=== PATIENT | male | born 1940 | race Caucasian/White ===

== ENCOUNTER 2024-01-20 17:56 | Inpatient (IN) | payer MEDICARE, OTHER, SELFPAY ==
[2024-01-16 22:49] VITALS: BP 153/65; BMI 21.5
--- NOTE | 2024-01-16 22:53 | ED.GENMED ---
History of Present Illness
General
Chief Complaint: Bowel Problem
Time Seen by Provider: 01/16/24 22:53
Travel History
Have you had any contact with someone who has COVID-19?: No
Do you have any symptoms of coronavirus? Fever > 100 degrees, chills, cough, shortness of breath, sore throat, loss of taste or smell, muscle aches, or headache?: No
History of Present Illness
History of Present Illness:
HPI: The patient has dementia and EMS could not describe why he was here, we called [facility] at 11:05 PM. I spoke to a nurse there. She tells me the patient earlier was having 'severe abdominal pain, chest pain, was pale and clammy, his
'stoma was protruding' and he almost passed out. The patient tells me he has not been feeling well. He said he has been having abdominal and chest pain.
EXAM:
GENERAL: Appears in mild distress
HEENT: Slightly dry oral mucosa
CARDIOVASCULAR: Regular rate and rhythm
PULMONARY: No respiratory distress, breathing is nonlabored, equal and clear breath sounds
ABDOMEN: Soft with no peritoneal signs, but there is mild diffuse tenderness, colostomy bag which is full of brown stool noted
NEUROLOGIC: The patient has evidence of dementia, not oriented to month or place, but he knows he is at 'a hospital' strength is equal in all extremities
EXTREMITIES: Moves all extremities equally, no tenderness, no edema
PYSCHIATRIC: Very limited historian, limited insight and judgment
TIME OF INITIAL ENCOUNTER: 11:10 PM
NUMBER AND COMPLEXITY OF PROBLEMS ADDRESSED AT THE ENCOUNTER
� Chronic conditions affecting care: Dementia, depression, has colostomy, CAD, high blood pressure, diabetes, COPD
� Acute Exacerbation and/or Progression of Chronic Illness: This is an acute problem
� Differential Diagnosis includes: Constipation, abdominal pain, abdominal wall pain, ACS, vital signs not consistent with sepsis, mesenteric ischemia
AMOUNT AND/OR COMPLEXITY OF DATA TO BE REVIEWED AND ANALYZED
� I performed an independent evaluation of and my interpretation is:
EKG: Sinus 92, nonspecific ST abnormality
CT: CT shows prominent left hepatic mass measuring up to 8.7 cm concerning for underlying malignancy
X-rays: Chest x-ray shows sternotomy wires but no acute abnormality
Laboratory Studies: New LFT abnormality noted, creatinine 1.7 this is near baseline
Other:
� Review of other/old records: I reviewed records�the patient was admitted here in May 2023 with a change in mental status felt to be due to 'toxic metabolic encephalopathy secondary to UTI and patient with underlying
dementia'
� Clinical information was obtained by an independent historian: See above�I spoke to nurse at [facility]
� Prescriptions/Medications Considered but not given:
� Further testing considered but not performed:
RISK OF COMPLICATIONS AND/OR MORBIDITY OR MORTALITY OF PATIENT MANAGEMENT
� Social determinants of health affecting care: Lives at [facility]
� Discussion with other providers: Hospitalist for admission at 12:20 AM
� Escalation of care including admission/observation vs risk of discharge considered: Given patient's age with reported chest and abdominal pain, labs and imaging has been obtained. CT imaging shows a new left hepatic mass. The
patient cannot clearly tell me the names of anybody for me to call to update them of those he says that he has 'an uncle'. The patient did vomit a large amount of food while in the ED. He was given Zofran and Protonix.
Past History
Past History
ED Past Medical History: CAD, COPD, GERD, HTN, Hypercholesterolemia, IDDM (type 2), VT, Psychiatric (depression, dementia with behavioral disturbances) and Other (HLD, angina or pressue, circulation problems, CP, PVD, dementia slight, frequent MARQUES,
Colitis, UTI's)
ED Past Surgical History: Appendectomy, Bowel resection (Perforated diverticulitis requiring emergency rectosigmoid resection with formation of colostomy March 31, 2021), Cardiac (CABG 2003), Orthopedic and Other (Cataracts)
Social History
Tobacco: Smoker
Alcohol: None
Drug: None
Personal: Single
Living: alf (Amigo)
Employment: Retired
Family History
Family History: Other (Diabetes, hypertension, coronary disease)
Phy Exam
Physical Exam
Physical Exam:
See HPI
Course
Orders/Labs/Results
Orders:
Orders
01/16/24 23:10
Electrocardiogram (*1) Urgent
Reason for Study: Chest Pain
EKG- Treatment ONCE
0.9% Sodium Chloride 500 ml [Nss] 500 ml IV BOLUS
01/16/24 23:14
CT Abd/pel Without Iv Or Oral Urgent
Comment:
Reason For Exam: abd pain; cannot leanna po; CKD
01/16/24 23:16
Complete Blood Count/With Diff Urgent
Comprehensive Metabolic Panel Urgent
Lactic Acid Urgent
Lipase Urgent
Troponin I Urgent
01/16/24 23:17
CR Chest - 2 Views Urgent
Comment:
Reason For Exam: pain
01/17/24 01:36
Admit/Transfer Patient As Directed
Co-Sign Provider:
Level of Care: Observation services
Assign to:: Medical/Surgical
Physician / Group: hospitalist
Diagnosis: liver mass
01/17/24 01:37
Ondansetron Injectable [Zofran] 4 mg .ROUTE .STK-MED ONE
Ondansetron Injectable [Zofran] 4 mg IV NOW STA
01/17/24 01:38
Code Status As Directed
Resuscitation Status: Do not resuscitate
Based on pt advanced directive or healthcare POA form: Yes
DNR Bracelet Application ONCE
01/17/24 01:43
MRI Abdomen [MR Abdomen W/o & W Contrast] Routine
Comment:
Reason For Exam: liver mass protocol
Recent pill cam endoscopy?: No
01/17/24 03:25
0.9% Sodium Chloride 1000 ml [Nss] 1,000 ml IV 60 mls/hr
Acetaminophen [Tylenol] 650 mg PO Q4HPRN PRN
Bisacodyl [Dulcolax] 10 mg RECTAL [id number] PRN
Metoclopramide [Reglan] 5 mg IV Q6HPRN PRN
Polyethylene Glycol Powder [Miralax] 17 grams PO DAILYPRN PRN
01/17/24 03:25
Consult Notification Routine
Specialty to Notify: Gastroenterology
Date consulting provider notified: 01/17/24
Time consulting provider notified: 03:50
Notified:: Provider
GASTROINTESTINAL CONSULT Routine
Consulting Provider: Pam Simon
Was physician already notified: No
Reason for consult: liver mass, abdominal pain
Activity As Directed
Activity Level: With Assistance
Bedside Glucose Monitoring As Directed
Frequency: AC&HS
Vital Signs As Directed
Frequency: Per unit guidelines
DX Deep Vein Thrombosis Video Routine
01/17/24 Breakfast
2000 calorie (17 carb) Diabetic
At Your Request: Full Participation
Does patient need a safe tray?: No
AFP Male/Tumor Marker IN AM
Basic Metabolic Panel IN AM
LFT [Osidf-Ukez-Aknmcfx] IN AM
01/17/24 07:30
Insulin Aspart Corrective Low [Novolog Flexpen-Low Resistance] See Protocol SC AC
01/17/24 08:00
Aspirin Low Dose EC [Aspir Low (Enteric Coated)] 81 mg PO DAILY
Bupropion Regular Release [Wellbutrin Regular Release] 100 mg PO BID
Cilostazol [Pletal] 100 mg PO BID
Divalproex Delayed Rel. 12 Hr [Depakote (12 Hr Release)] 125 mg PO BID
Metoprolol [Lopressor] 25 mg PO BID
Pantoprazole [Protonix] 40 mg PO DAILY
Risperidone [Risperdal] 0.25 mg PO BID
01/17/24 09:00
ISOSORBIDE MONOnitrate ER [Imdur (Extended Release)] 60 mg PO BID@0900,1600
01/17/24 18:00
Amlodipine [Norvasc] 10 mg PO QPM
Enoxaparin Sodium [Lovenox] 30 mg SC QPM
01/17/24 22:00
Atorvastatin [Lipitor] 20 mg PO HS
Sennosides [Senokot] 17.2 mg PO HS
Tamsulosin [Flomax] 0.4 mg PO HS
Abnormal Lab Results
01/16/24
23:16
WBC 12.8 H 10^3/uL
(4.8-10.8)
RBC 3.99 L 10^6/uL
(4.70-6.10)
Hgb 11.6 L g/dL
(13.0-18.0)
Hct 33.0 L %
(39.0-52.0)
Abs Immat Gran (auto) 0.1 H 10^3/uL
(0-0.05)
Absolute Neuts (auto) 10.9 H 10^3/uL
(1.4-6.5)
Absolute Lymphs (auto) 1.0 L 10^3/uL
(1.2-3.4)
Immature Gran % 0.9 H %
(0-0.5)
Neutrophils % 85.3 H %
(42.2-75.2)
Lymphocytes % 7.6 L %
(20.5-51.1)
Sodium 134 L mmol/L
(135-145)
Potassium 5.3 H mmol/L
(3.5-5.1)
BUN 40 H mg/dl
(9-20)
Creatinine 1.7 H mg/dL
(0.7-1.3)
Glucose 210 H mg/dl
(70-99)
AST 574 H* U/L
(17-59)
ALT 338 H U/L
(0-50)
Alkaline Phosphatase 203 H U/L
(38-126)
01/16/24 23:16
01/16/24 23:16
Vital Signs
Initial and Last Documented VS:
Initial Vital Signs
Temp Pulse Resp BP Pulse Ox
98.4 F 89 16 153/65 97
01/16/24 22:49 01/16/24 22:49 01/16/24 22:49 01/16/24 22:49 01/16/24 22:49
Last Documented Vital Signs
Temp Pulse Resp BP Pulse Ox
98.4 F 89 16 153/65 97
01/16/24 22:49 01/16/24 22:49 01/16/24 22:49 01/16/24 22:49 01/16/24 22:49
*Critical Care Note
Total Time (30-74mins, 75-104mins- exclusive of procedures): Not Applicable
ED Attending Note
-
Portions of this chart may have been created with voice recognition software.� Occasional wrong word or��sound alike� substitutions may have occurred due to the inherent limitations of voice recognition software.
Discharge Plan
Departure
Patient Disposition: Admit
Date of Disposition: 01/17/24
Time of Disposition: 00:27
Presentation/result/management discussed w/ accepting MD/DO: Hospitalist
Patient with high blood pressure during this ER visit?: Yes
Discharge Problem:
Liver mass
Interventions
Interventions:
*Risk Screen - Suicide Last Done: 01/17/24 06:40
*General Assessment Last Done: 01/16/24 22:49
*Neglect/Abuse Screening Last Done: 01/16/24 22:49
ED- Fall Risk Assessment Last Done: 01/16/24 23:06
*ED COVID-19 Vaccine History Last Done: 01/16/24 22:49
*Nursing Disposition Last Done: 01/17/24 02:50
TU-Qejbus-Mbzulwskth Assessment Last Done: 01/16/24 23:06
Discharge Date and Time
Discharge Date/Time: 01/17/24 02:50
[2024-01-16] MEDS: NSS 500 IV (23:20)
[2024-01-16 23:31] LABS: % Basophils 0.3 % (0-2); % Eosinophils 0.9 % (0-6); % Immature Granulocytes 0.9 % (0-0.5); % Lymphocytes 7.6 % (20.5-51.1); % Neutrophils 85.3 % (42.2-75.2); Absolute Eosinophils 0.1 10^3/uL (0-0.7); Absolute Immature Granulocytes 0.1 10^3/uL (0-0.05); Absolute Monocytes 0.6 10^3/uL (0.1-0.6); Absolute Neutrophils 10.9 10^3/uL (1.4-6.5); Hemoglobin 11.6 g/dL (13.0-18.0); Mean Corp Hgb Conc. 35.2 g/dL (33.0-37.0); Mean Corpuscular Hgb 29.1 pg (27.0-31.0); Mean Corpuscular Volume 82.7 fL (80.0-94.0); Mean Platelet Volume 9.4 fL (7.4-10.4); Nucleated Red Blood Cells % 0 % (-); Platelet Count 295 10^3/uL (130-400); Red Blood Cell Count 3.99 10^6/uL (4.70-6.10); Red Cell Dist. Width 11.9 % (11.5-14.5); White Blood Cell Count 12.8 10^3/uL (4.8-10.8)
[2024-01-16 23:44] LABS: Lactic Acid 1.6 mmol/L (0.7-2.0)
[2024-01-16 23:49] LABS: ALT (SGPT) 338 U/L (0-50); AST (SGOT) 574 U/L (17-59); Albumin 3.8 g/dl (3.5-5.0); Alkaline Phosphatase 203 U/L (38-126); Blood Urea Nitrogen 40 mg/dl (9-20); Calcium 9.6 mg/dl (8.4-10.2); Carbon Dioxide 25 mmol/L (22-30); Chloride 103 mmol/L (98-107); Estimated Creatinine Clearance 31 ml/min; Glucose 210 mg/dl (70-99); Lipase 29 U/L (23-300); Potassium 5.3 mmol/L (3.5-5.1); Sodium 134 mmol/L (135-145); Total Bilirubin 0.8 mg/dl (0.2-1.3); Total Protein 6.5 g/dl (6.3-8.2)
[2024-01-16 23:57] LABS: Troponin I < 0.012 ng/ml
--- NOTE | 2024-01-17 01:10 | HPS.HSE ---
Family Physician
-
Family Physician: Jairo Jade
Chief Complaint
-
Abdominal pain
History of Present Illness
This is an 83-year-old resident of a [facility] who presents with abdominal pain. He is a poor historian. History from [facility] shelter reported that hew was having severe abdominal pain and chest discomfort. He was pale and clammy and his
stoma was protruding. 'He almost passed out.' Has a history of perforated diverticulitis s/p colectomy and has a colostomy bag. At the bedside he had no complaints. States his abdomen now feels fine. Denies urinary symptoms. He is unable to
provide any additional history.
Vital signs were stable in the ED was afebrile, blood pressure was 153/65 with a pulse of 87 and oxygen saturation of 91% on room air. He had a ECG which showed normal sinus rhythm 4 degree AV block. No acute ST or T wave changes unchanged from
prior. Is CBC was notable for a white count of 12.8 but otherwise unremarkable. Chemistries notable for a BUN of 40 creatinine of 1.7 and a sodium of 104. BUN/creatinine slightly higher than baseline. His labs were mostly remarkable for elevated
LFTs with alk phos of 203 AST of 574 and ALT of 338. CT scan shows a prominent left hepatic mass measuring 8.7 x 8.1 cm concerning for underlying malignancy. Gallbladder was unremarkable. He had a moderately distended stomach without bowel
obstruction and moderate stool burden.
Medical History
Past Medical History
Past Medical History: Reports CAD, Dementia, HTN, IDDM and Other
Additional Past Medical History:
BPH
Past Surgical History: Reports Bowel Resection
Social History
Unable to obtain full social history at this time due to: Dementia
Tobacco: Non-smoker
Living: Longterm
Employment: Retired
Family History
Family History: Not pertinent
Allergies / Home Medications
Allergies reflects when Allergies were last updated in [facility].
Home Medications with original date entered in [facility]
Allergy/Medication List:
Allergies
Allergy/AdvReac Type Severity Reaction Status Date / Time
No Known Allergies Allergy Verified 01/16/24 22:53
Home Medications
nitroglycerin 0.4 mg sublingual tablet 0.4 mg sublingual Q5MX3 PRN chest pain 01/08/17
acetaminophen 325 mg tablet 650 mg PO Q4H PRN mild pain/temp>100F 12/01/17
amlodipine 10 mg tablet 10 mg PO QPM Blood pressure 12/01/17
cilostazol 100 mg tablet 100 mg PO BID s/p cabg 12/01/17
pantoprazole 40 mg tablet,delayed release 40 mg PO DAILY Gastrointestinal issue 12/01/17
sennosides 8.6 mg tablet (senna) 2 tab PO HS Constipation 12/01/17
simvastatin 40 mg tablet 40 mg PO HS High cholesterol 12/01/17
isosorbide mononitrate 60 mg tablet,extended release 24 hr 60 mg PO BID@0900,1600 Heart disease/condition 03/22/18
divalproex 125 mg tablet,delayed release 125 mg PO BID seizures/mental health 07/21/20
aspirin 81 mg tablet,delayed release 81 mg PO DAILY Blood clot prevention/tx 04/12/21
insulin lispro 100 unit/mL subcutaneous pen (Humalog KwikPen (U-100) Insulin) 0 - 14 units SC QID Diabetes 04/12/21
tamsulosin 0.4 mg capsule 0.4 mg PO HS Urinary issue 04/12/21
metoprolol tartrate 25 mg tablet 25 mg PO BID Blood pressure 12/29/21
bupropion HCl 100 mg tablet 100 mg PO BID Mental Health/Anxiety 11/19/22
risperidone 0.25 mg tablet 0.25 mg PO BID Mental Health/Anxiety 11/19/22
cephalexin 500 mg capsule 500 mg PO Q8H #14 caps 06/11/23
Review of Systems
-
Unable to obtain full review of systems at this time due to: Dementia
History Source: Family
Constitutional: Reports No Symptoms
EENT: Reports No Symptoms
Respiratory: Reports No Symptoms
Cardiac: Reports Chest Pain
Abdomen/GI: Reports Abdominal Pain
: Reports No Symptoms
Musculoskeletal: Reports No Symptoms
Skin: Reports No Symptoms
Neurological: Reports No Symptoms
Endocrine: Reports No Symptoms
Hematologic/Lymphatic: Reports No Symptoms
Psych: Reports No Symptoms
Physical Exam
Vital Signs
Vital Signs
Temp Pulse Resp BP Pulse Ox
98.4 F 89 16 153/65 97
01/16/24 22:49 01/16/24 22:49 01/16/24 22:49 01/16/24 22:49 01/16/24 22:49
Physical Exam
General: Comfortable
HEENT: NormoCephalic, Anicteric and Moist mucous membranes
Respiratory: Clear
Cardiac: S1/S2 and Regular Rhythm
Breast: N/A
GI: Tender, Distended and Ostomy
Rectal: Deferred by Provider
Genito-urinary: Deferred by me
Musculoskeletal: No Clubbing, No Cyanosis and No Edema
Skin: Warm
Neuro: Alert and Nonfocal/grossly intact
Hematologic/Lymphatic: No Lymphadenopathy
Psych: Calm
Laboratory Results
-
01/16/24 23:16
01/16/24 23:16
Laboratory Results
Lactic Acid 1.6 mmol/L (0.7-2.0) 01/16/24 23:16
Total Bilirubin 0.8 mg/dl (0.2-1.3) 01/16/24 23:16
AST 574 U/L (17-59) H* 01/16/24 23:16
ALT 338 U/L (0-50) H 01/16/24 23:16
Alkaline Phosphatase 203 U/L (38-126) H 01/16/24 23:16
Troponin I < 0.012 ng/ml 01/16/24 23:16
Lipase 29 U/L (23-300) 01/16/24 23:16
Data Reviewed
-
Diagnostic Radiology: Image Personally Visualized and interpreted
CT Scan: Report Reviewed by me
Medical Tests (Nuc Med, Echo, EKG etc): Image Personally Visualized and interpreted
Lab Data: Labs Reviewed by me
Old Records: Reviewed
Impression/Plan
-
IMPRESSION:
83-year-old with past medical history significant for dementia, CKD, hypertension, CAD, BPH and diabetes who presents to the Emergency Department with acute episode of abdominal pain and was found to have a right left hepatic lobe mass concerning
for underlying malignancy. No peritonitis. No bowel obstruction. Unclear that the mass is the cause of the abdominal complaint rather than an incidental finding. He does have abnormal lfts but normal lipase and normal biliary findings.
PLAN:
1. Liver mass - Incidental finding of a left hepatic lobe mass concerning for malignancy
- admit to f
- mri liver protocol to characterize mass
- check AFP
- diet as tolerated
- GI consultation
2. CAD - s/p cabg
- continue aspirin, statin and cilostazol
- imdur
3. HTN - stable
- continue norvasc, metoprolol and imdur
4.Dementia w/ behavioral changes
- namenda
- depakote
- buproprion
- risperdal
5. DM II
- sliding scale insulin
DVT PPX lovenox sq
Code status - DNR
--- NOTE | 2024-01-17 01:27 | EDRN ---
Hospitalist at bedside working on admission, patient resting comfortably
[2024-01-17] MEDS: ZOFRAN 4 MG IV (01:50)
--- NOTE | 2024-01-17 02:12 | EDRN ---
was at nursing station when heard patient making sound went in to check on him, patient threw up all over the floor large amount noted in brown color, linnea rosales MD and hospitalist aware
[2024-01-17] MEDS: NSS 1000 IV ×2 (03:38→20:41)
--- NOTE | 2024-01-17 05:25 | PTCARENOTE ---
01/17/2024 - PT admitted to room 2135 @02:45 from ED. PT transferred from stretcher to bed with max assist. PT oriented to room, call scruggs, plan of care discussed. PTunable to participate in admission questions. Admission completed based on report.
Bed alarm placed for PT safety. Remote video monitoring placed for PT safety. Assessment as documented.
[2024-01-17 07:55] VITALS: BP 131/63
[2024-01-17 08:52] LABS: Glucose - Point of Care 312 mg/dl (70-99)
[2024-01-17] MEDS: NOVOLOG FLEXPEN-LOW RESISTANCE 4 UNITS SC (09:08)
[2024-01-17] MEDS: WELLBUTRIN REGULAR RELEASE 100 MG PO ×2 (09:09→20:39)
[2024-01-17] MEDS: IMDUR (EXTENDED RELEASE) 60 MG PO ×2 (09:09→16:04)
[2024-01-17] MEDS: RISPERDAL 0.25 MG PO ×2 (09:10→20:39)
[2024-01-17] MEDS: DEPAKOTE (12 HR RELEASE) 125 MG PO ×2 (09:10→20:39)
[2024-01-17] MEDS: ASPIR LOW (ENTERIC COATED) 81 MG PO (09:10)
[2024-01-17] MEDS: LOPRESSOR 25 MG PO ×2 (09:10→20:39)
[2024-01-17] MEDS: PLETAL 100 MG PO ×2 (09:10→20:38)
[2024-01-17] MEDS: PROTONIX 40 MG PO (09:10)
[2024-01-17 09:16] LABS: Albumin 3.3 g/dl (3.5-5.0); Alkaline Phosphatase 241 U/L (38-126); Blood Urea Nitrogen 35 mg/dl (9-20); Calcium 9.1 mg/dl (8.4-10.2); Carbon Dioxide 23 mmol/L (22-30); Chloride 105 mmol/L (98-107); Direct Bilirubin 1.1 mg/dl (0.0-0.4); Estimated Creatinine Clearance 31 ml/min; Glucose 308 mg/dl (70-99); Potassium 5.1 mmol/L (3.5-5.1); Sodium 133 mmol/L (135-145); Total Bilirubin 1.3 mg/dl (0.2-1.3); Total Protein 5.8 g/dl (6.3-8.2)
[2024-01-17 09:21] LABS: ALT (SGPT) 860 U/L (0-50); AST (SGOT) 913 U/L (17-59)
--- NOTE | 2024-01-17 09:54 | PTCARENOTE ---
Patient's stoma red, bulging, with hard formed brown stool output; appliance changed overnight per overnight babysitter RN, stoma care provided and new ostomy bag placed by this RN. Patient denies N/V or abd pain at rest but states sharp pain throughout
abdomen with palpation. AST 913 and ALT 860 this AM, results communicated with MD. Colorectal surgery consult placed by MD. Patient states no other concerns at this time.
[2024-01-17 10:28] LABS: Glucose - Point of Care 283 mg/dl (70-99)
--- NOTE | 2024-01-17 10:53 | CON.CRS ---
Consultation
-
Date/Time Consultation Requested: 01/17/24925
Requesting Provider: Leobardo
Performing Provider: Kirk Villasenor
Reason for Consultation: Bulging, protruding stoma, severe constipation
Medical History
-
Chief Complaint: abdominal pain
History of Present Illness:
Mr Arango is an 83 yo male with h/o dementia, CAD, CABG, COPD, CHF, c-diff requiring fecal transplant 2015 and perforated diverticulitis with Haritha's procedure in March of 2021 who presents from SNF with abdominal pain and near syncope. He is
orented to self and knows he is in the hospital but otherwise confused and a poor historian. He complains of generalized abdominal pain with generalized tenderness on exam. Stoma is pink and budded on exam and productive of hard balls of formed
stool per nursing. He had vomiting last night which he confirms but denies active nausea.
Past Medical History
Past Medical History: CAD, CHF, COPD, Diverticulitis, GERD, HTN, Hypercholesterolemia, IDDM, Renal Failure (CKD) and Other (Dementia, BPH)
Past Surgical History: Appendectomy, Bowel Resection (rectosigmoid with colostomy creation d/t perforation) and Cardiac (CABG)
Social History
Tobacco: Non-Smoker
Alcohol: None
Living: Senior Living
Family History
Family History: Reviewed & Not Pertinent
Allergies / Home Medications
Allergy/AdvReac Type Severity Reaction Status Date / Time
No Known Allergies Allergy Verified 01/16/24 22:53
�Medication �Instructions �Recorded �Confirmed �Type
nitroglycerin 0.4 mg sublingual 0.4 mg sublingual Q5MX3 PRN chest 01/08/17 06/07/23 History
tablet pain
acetaminophen 325 mg tablet 650 mg PO Q4H PRN mild 12/01/17 06/07/23 History
pain/temp>100F
amlodipine 10 mg tablet 10 mg PO QPM Blood pressure 12/01/17 06/07/23 History
cilostazol 100 mg tablet 100 mg PO BID s/p cabg 12/01/17 06/07/23 History
pantoprazole 40 mg tablet,delayed 40 mg PO DAILY Gastrointestinal 12/01/17 06/07/23 History
release issue
sennosides 8.6 mg tablet (senna) 2 tab PO HS Constipation 12/01/17 06/07/23 History
simvastatin 40 mg tablet 40 mg PO HS High cholesterol 12/01/17 06/07/23 History
isosorbide mononitrate 60 mg 60 mg PO BID@0900,1600 Heart 03/22/18 06/07/23 History
tablet,extended release 24 hr disease/condition
divalproex 125 mg tablet,delayed 125 mg PO BID seizures/mental 07/21/20 06/07/23 History
release health
aspirin 81 mg tablet,delayed 81 mg PO DAILY Blood clot 04/12/21 06/07/23 History
release prevention/tx
insulin lispro 100 unit/mL 0 - 14 units SC QID Diabetes 04/12/21 06/07/23 History
subcutaneous pen (Humalog KwikPen
(U-100) Insulin)
tamsulosin 0.4 mg capsule 0.4 mg PO HS Urinary issue 04/12/21 06/07/23 History
metoprolol tartrate 25 mg tablet 25 mg PO BID Blood pressure 12/29/21 06/07/23 History
bupropion HCl 100 mg tablet 100 mg PO BID Mental Health/Anxiety 11/19/22 06/07/23 History
risperidone 0.25 mg tablet 0.25 mg PO BID Mental 11/19/22 06/07/23 History
Health/Anxiety
cephalexin 500 mg capsule 500 mg PO Q8H #14 caps 06/11/23 Rx
Review of Systems
-
Unable to obtain full review of systems at this time due to: Dementia
A 10 point review of systems was completed, and was negative except as per HPI.
Physical Exam
Vital Signs
Temp 99.7 F 01/17/24 07:55
Pulse 104 01/17/24 09:10
Resp Rate 16 01/17/24 07:55
Blood pressure 131/63 01/17/24 09:10
SaO2 95 01/17/24 07:55
01/16/24 01/17/24 01/18/24
06:59 06:59 06:59
Actual Weight 64 kg
Body Mass Index (BMI) 21.5
Lab Results / Allergies
01/16/24 23:16
01/17/24 06:58
WBC 12.8 10^3/uL (4.8-10.8) H 01/16/24 23:16
Hgb 11.6 g/dL (13.0-18.0) L 01/16/24 23:16
Hct 33.0 % (39.0-52.0) L 01/16/24 23:16
Plt Count 295 10^3/uL (130-400) 01/16/24 23:16
Abs Immat Gran (auto) 0.1 10^3/uL (0-0.05) H 01/16/24 23:16
Neutrophils % 85.3 % (42.2-75.2) H 01/16/24 23:16
Allergy/AdvReac Type Severity Reaction Status Date / Time
No Known Allergies Allergy Verified 01/16/24 22:53
Physical Exam
General: Other (Curled up in bed, sleepy/disheveled)
HEENT: Moist Mucous Membranes
GI: Soft, Tender (generalized), Distended (mild) and Other (ostomy pink/budded)
Skin: Warm
Neuro: Awake, Alert and Other (ox1-2)
Psych: Calm
Data Reviewed
-
CT Scan: Image Personally Visualized and interpreted, Report Reviewed by me, Discussed with Physician, Discussed with Patient and Discussed with Family
Labs: Labs Reviewed by me, Discussed with Physician, Discussed with Patient and Discussed with Family
Old Records: Reviewed
Assessment / Plan
-
83 yo male with h/o dementia, CAD, CABG, COPD, CHF, perforated diverticulitis in 2020 s/p Haritha's with Dr. Salamanca who presented with generalized abdominal pain and near syncope seen today in consult for evaluation of stoma and constipation. CT
imaging reviewed from admission with incidental finding of new liver mass with GI consult and MRI pending. There is a large amount of stool burden present with severe constipation present. No free air. No obstruction. Anastomosis from prior surgery
appears patent. Ostomy with healthy looking and functioning stoma. Hard stools noted from stoma by nursing, appliance empty as it was recently changed but some flatus noted. Reported nausea/vomiting last night but he denies nausea today. AFVSS. Mild
leukocytosis with elevated LFT's.
--Start bowel regimen with miralax 17gm x1 po now and daily, colace 100mg BID and enema now via stoma. Hold senna given abdominal discomfort. May need MOM vs Mag citrate later today if no BM with enema
--Dietas per primary team, would make NPO if further nausea/vomiting
--Liver work up as per gastroenterology team
[2024-01-17 11:40] LABS: Glucose - Point of Care 242 mg/dl (70-99)
[2024-01-17] MEDS: NOVOLOG FLEXPEN-LOW RESISTANCE 2 UNITS SC (12:30)
[2024-01-17] MEDS: MIRALAX 17 GRAMS PO ×2 (12:39→20:39)
--- NOTE | 2024-01-17 13:32 | CM ---
Initial assessment completed with nephew, Shady. Patient resides LTC at [facility]. He is non-ambulatory, requires assistance with transfers, can wheel himself in wheelchair, able to feed self if food is placed in front of him,
communicative but confused and dementia has gotten worse lately. Discharge Plan of Care: Return to [facility].
[2024-01-17 14:05] VITALS: BP 125/54
[2024-01-17 14:44] LABS: Urine Albumin 2+ (Neg - Trace); Urine Bilirubin 1+ (Negative); Urine Character Slightly Cloudy (Clear); Urine Color Yellow; Urine Glucose 3+ (Negative); Urine Ketone Trace (Negative); Urine Leukocyte 2+ (Negative); Urine Nitrite Negative (Negative); Urine Occult Blood Negative (Negative); Urine Urobilinogen 2+ (Neg - 1+)
[2024-01-17] MEDS: FLEET MINERAL OIL ENEMA 133 ML S (14:50)
[2024-01-17 15:08] LABS: Urine Bacteria Many (Negative); Urine Squamous Cell 0-2 /LPF (Few)
[2024-01-17 15:09] LABS: Urine White Cell 26-30 /HPF (0-5)
[2024-01-17 15:10] LABS: Urine Red Blood Cell 0-2 /HPF (0-2)
--- NOTE | 2024-01-17 15:38 | CON.GI ---
Consultation
-
Date/Time Consultation Requested: 01/17/2024
Date/Time Consultation Performed: 01/17/2024
Requesting Provider: Dr. Acuña
Performing Provider: Dr. Simon
Reason for Consultation: Liver mass
Medical History
Chief Complaint / HPI
Chief Complaint: Abdominal pain
History of Present Illness:
83-year-old male with history of multiple medical problems, possible dementia, presenting from [facility] with complaints of abdominal pain at the colostomy stoma from Diallo's - protruding out. He has history of perforated
diverticulitis with fecal peritonitis in 2020, had Diallo's procedure at that time. In the emergency room, he had a CT scan of the abdomen and pelvis without contrast, there was a large amount of fecal material in the cecum and throughout the rest
of the colon suggesting severe constipation. 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 Reviewing previous imaging, he had CT scan of
the chest/abdomen and pelvis without contrast in 2021 for sepsis, at that time he was noted to have very severe right lower lobe pneumonia and bilateral emphysema. Gallstones noted but otherwise liver looked normal. His total bilirubin has been
normal, transaminases within normal range in 2022, previously elevated in 2021 but this admission, AST was 913, ALT of 860, alkaline phosphatase of 241. Total bilirubin of 1.3 with a direct of 1.1. Hepatitis B and C serologies negative in June
2021, hepatitis B surface antigen positive suggesting immunization/previous infection.
Reported history of colonoscopy but unable to recall the findings or when this was.
Patient is a very poor historian and is not able to give any history. He does report some discomfort in the mid abdomen, no nausea, vomiting, blood or trouble swallowing. Reports daily bowel movements and denies any blood or black stool. From
medication list, he does take Senokot, 2 tablets every night.
He was seen by colorectal surgery, hard stool in the stoma, mineral oil enema recommended to the colostomy and bowel regimen with MiraLAX recommended as well.
As per RN, small amount of stool after the enema but nothing significant.
Past Medical History
Past Medical History: Other ( CAD, COPD, GERD, HTN, Hypercholesterolemia, IDDM (type 2), NV, Psychiatric (depression, dementia with behavioral disturbances) and Other (HLD, angina or pressue, circulation problems, CP, PVD, dementia slight)
Past Surgical History: Other (Appendectomy, Bowel resection (Perforated diverticulitis requiring emergency rectosigmoid resection with formation of colostomy March 31, 2021), Cardiac (CABG 2003), Orthopedic and Other (Cataracts))
Social History
Tobacco: Smoker
Alcohol: None
Family History
Family History: Reviewed & Not Pertinent
Allergies / Home Medications
Allergy/AdvReac Type Severity Reaction Status Date / Time
No Known Allergies Allergy Verified 01/16/24 22:53
�Medication �Instructions �Recorded
nitroglycerin 0.4 mg sublingual 0.4 mg sublingual [id number] PRN chest 01/08/17
tablet pain
acetaminophen 325 mg tablet 650 mg PO Q4H PRN mild 12/01/17
pain/temp>100F
amlodipine 10 mg tablet 10 mg PO QPM Blood pressure 12/01/17
cilostazol 100 mg tablet 100 mg PO BID s/p cabg 12/01/17
pantoprazole 40 mg tablet,delayed 40 mg PO DAILY Gastrointestinal 12/01/17
release issue
sennosides 8.6 mg tablet (senna) 2 tab PO HS Constipation 12/01/17
simvastatin 40 mg tablet 40 mg PO HS High cholesterol 12/01/17
isosorbide mononitrate 60 mg 60 mg PO BID@0900,1600 Heart 03/22/18
tablet,extended release 24 hr disease/condition
divalproex 125 mg tablet,delayed 125 mg PO BID seizures/mental 07/21/20
release health
aspirin 81 mg tablet,delayed 81 mg PO DAILY Blood clot 04/12/21
release prevention/tx
insulin lispro 100 unit/mL 0 - 14 units SC QID Diabetes 04/12/21
subcutaneous pen (Humalog KwikPen
(U-100) Insulin)
tamsulosin 0.4 mg capsule 0.4 mg PO HS Urinary issue 04/12/21
metoprolol tartrate 25 mg tablet 25 mg PO BID Blood pressure 12/29/21
bupropion HCl 100 mg tablet 100 mg PO BID Mental Health/Anxiety 11/19/22
risperidone 0.25 mg tablet 0.25 mg PO BID Mental 11/19/22
Health/Anxiety
cephalexin 500 mg capsule 500 mg PO Q8H #14 caps 06/11/23
Review of Systems
-
All other systems: A 12 pt ROS was Negative except as stated above in HPI
Vital Signs
Temp Pulse Resp BP Pulse Ox
99.2 F 104 16 131/63 95
01/17/24 11:25 01/17/24 09:10 01/17/24 07:55 01/17/24 09:10 01/17/24 11:18
Physical Exam
Exam
GI: Soft and Other (Discomfort on palpation of the lower abdomen without any guarding or rigidity. Colostomy site clean with protrusion noted.)
Results
WBC 12.8 10^3/uL (4.8-10.8) H 01/16/24 23:16
Hgb 11.6 g/dL (13.0-18.0) L 01/16/24 23:16
Hct 33.0 % (39.0-52.0) L 01/16/24 23:16
MCV 82.7 fL (80.0-94.0) 01/16/24 23:16
Plt Count 295 10^3/uL (130-400) 01/16/24 23:16
Absolute Neuts (auto) 10.9 10^3/uL (1.4-6.5) H 01/16/24 23:16
Sodium 133 mmol/L (135-145) L 01/17/24 06:58
Potassium 5.1 mmol/L (3.5-5.1) 01/17/24 06:58
Chloride 105 mmol/L (98-107) 01/17/24 06:58
Carbon Dioxide 23 mmol/L (22-30) 01/17/24 06:58
BUN 35 mg/dl (9-20) H 01/17/24 06:58
Creatinine 1.7 mg/dL (0.7-1.3) H 01/17/24 06:58
Calcium 9.1 mg/dl (8.4-10.2) 01/17/24 06:58
Total Bilirubin 1.3 mg/dl (0.2-1.3) 01/17/24 06:58
AST 913 U/L (17-59) H* 01/17/24 06:58
ALT 860 U/L (0-50) H* 01/17/24 06:58
Alkaline Phosphatase 241 U/L (38-126) H 01/17/24 06:58
Lipase 29 U/L (23-300) 01/16/24 23:16
Diagnostic Image Results:
Prior GI Procedures:
EGD:
Colonoscopy:
Assessment / Plan
-
83-year-old male with history of CAD, hypertension, cholesterol, diabetes, COPD, peripheral vascular disease, side dementia, history of perforated diverticulitis needing Haritha procedure in 2020, presenting from [facility] with
severe abdominal pain, CT scan without contrast showing evidence of severe constipation but also noted is new liver mass suspicious for malignancy.
-Liver mass, 8.8 cm in size, no biliary ductal dilation, no pancreatic duct dilation.
Normal total bilirubin but elevated direct bilirubin, elevated transaminases and alkaline phosphatase
Cannot rule out primary versus metastatic disease.
Hepatitis B and C serologies previously negative.
Await alpha-fetoprotein
Await abdominal MRI to evaluate the liver lesion
Further studies based on the MRI
-Severe constipation noted on CT scan
Received mineral oil enema-no significant effect, will try milk of molasses enema.
currently on MiraLAX once a day, will increase it to twice a day
Will monitor bowel movements and will titrate laxatives based on the bowel pattern.
Will follow
-
-
Thank you for consultation and allowing me to participate in the patient's care. Please call the diffusion operator GI physician during the after hours with any questions or concerns.
--- NOTE | 2024-01-17 15:56 | PTCARENOTE ---
Patient ordered mineral oil fleet enema through stoma per colorectal surgery, administered by this RN with assistance of Oneyda HOLT. Patient tolerated 3/4 of bottle before complaining of stomach cramping. Colorectal surgery made aware, colostomy
appliance changed by this RN with assistance of Yelena HOLT.
[2024-01-17] MEDS: TYLENOL 650 MG PO (16:05)
--- NOTE | 2024-01-17 16:19 | W.PN.HOSP.TC ---
Today's Communication/Plan
-
Constipation regimen, stoma eval by surgery appreciated
GI consult in setting of liver mass and elevated AST and ALT
Morning labs
Assessment / Plan
Assessment / Plan
Physical Exam
Physical exam not performed as patient was not present in his room at the time of attempted patient encounter and after a while of waiting after attempted patient encounter.

IMPRESSION:
83-year-old with past medical history significant for dementia, CKD, hypertension, CAD, BPH and diabetes who presented to the Emergency Department with acute episode of abdominal pain and was found to have a right left hepatic lobe mass concerning
for underlying malignancy. No peritonitis. No bowel obstruction. Unclear that the mass is the cause of the abdominal complaint rather than an incidental finding. He was noted to have abnormal lfts but normal lipase and normal biliary findings.
PLAN:
#Presentation with Abdominal Pain -- abdominal pain likely due to significant constipation
#Leukocytosis
#Constipation and Dis
#Liver mass - Incidental finding of a left hepatic lobe mass concerning for malignancy
-CT without contrast showing new large liver mass, heavy stool burden, distended stomach with food material
-Appreciate surgery consult regarding bulging stoma and signif constipation - as per surgery: mineral oil enema through ostomy and Colace twice daily, MiraLAX 1-2 times per day as needed; if no significant function,
recommended milk of magnesia or mag citrate
- mri liver protocol to characterize mass
- check AFP
- diet as tolerated
- GI consultation recommendations appreciated
#Elevated AST, ALT
-Home statin on hold
-Resume when able
#Fever, Suspected UTI
#History of Pseudomonas and E. coli in the Urine
-Cefepime based on prior sensitivities
-IV fluids
-Follow blood cultures
-Follow urine cultures
#CAD - s/p cabg
- continue aspirin, statin and cilostazol
- imdur
#HTN - stable
- continue norvasc, metoprolol and imdur
#Dementia w/ behavioral changes
- namenda
- depakote
- buproprion
- risperdal
#DM II
- sliding scale insulin
#Chronic Kidney Disease vs. MIRANDA
-Monitor Cr
#Chronic Obstructive Pulmonary Disease
#History of Perforated diverticulitis s/p Diallo's [place] [address] Salamanca
DVT PPX lovenox sq
Code status - DNR
Anticipated Discharge: > 48 hours
Subjective/Interval History
-
Date of Service: January 17, 2024
Patient was not present in his room at the time of attempted patient encounter and for a long while after attempted patient encounter. Patient as per community nutrition educator had gone down for imaging. Chart reviewed, case discussed with surgery and
gastroenterology.
Objective Data
-
Labs:
Laboratory Results
01/17/24
06:58
Sodium 133 L
Potassium 5.1
Chloride 105
Carbon Dioxide 23
BUN 35 H
Creatinine 1.7 H
Glucose 308 H
Calcium 9.1
Total Bilirubin 1.3
AST 913 H*
ALT 860 H*
Alkaline Phosphatase 241 H
Vital Signs:
Vital Signs
Temp Pulse Resp BP Pulse Ox
100.6 F H 92 18 125/54 97
01/17/24 14:05 01/17/24 14:05 01/17/24 14:05 01/17/24 14:05 01/17/24 14:05
I&O
01/16/24 01/17/24 01/18/24
06:59 06:59 06:59
Intake Total 200 / 200
Balance 200 / 200
--- NOTE | 2024-01-17 16:26 | PTCARENOTE ---
Patient with alternating periods of drowsiness and alertness throughout shift, complaining of feeling cold and shivering; axillary temp 100.6F, PRN tylenol administered. MD made aware, abx and blood cx ordered.
[2024-01-17 16:38] LABS: Glucose - Point of Care 199 mg/dl (70-99)
[2024-01-17] MEDS: NORVASC 10 MG PO (17:22)
[2024-01-17] MEDS: LOVENOX 30 MG SC (17:22)
[2024-01-17] MEDS: MAXIPIME 1000 MG IV (17:22)
[2024-01-17] MEDS: STERILE WATER FOR INJECTION 10 ML IV (17:22)
[2024-01-17] MEDS: NOVOLOG FLEXPEN-LOW RESISTANCE 1 UNITS SC (17:23)
--- NOTE | 2024-01-17 19:01 | PTCARENOTE ---
Patient ordered 500 ml milk and molasses enema per GI, administered by this RN with assistance of tech. Patient tolerated procedure, GI updated, no new orders at this time.
[2024-01-17 20:35] VITALS: BP 131/87
[2024-01-17] MEDS: COLACE 100 MG PO (20:38)
[2024-01-17 21:25] LABS: Glucose - Point of Care 165 mg/dl (70-99)
[2024-01-17] MEDS: FLOMAX 0.400000000000000022 MG PO (21:38)
[2024-01-17 23:03] VITALS: BP 135/61
[2024-01-18] MEDS: STERILE WATER FOR INJECTION 10 ML IV (05:21)
[2024-01-18] MEDS: MAXIPIME 1000 MG IV (05:22)
[2024-01-18 05:39] LABS: % Basophils 0.4 % (0-2); % Eosinophils 1.9 % (0-6); % Immature Granulocytes 0.8 % (0-0.5); % Lymphocytes 12.1 % (20.5-51.1); % Monocytes 6.7 % (1.7-9.3); % Neutrophils 78.1 % (42.2-75.2); Absolute Eosinophils 0.2 10^3/uL (0-0.7); Absolute Immature Granulocytes 0.1 10^3/uL (0-0.05); Absolute Lymphocytes 1.2 10^3/uL (1.2-3.4); Absolute Monocytes 0.7 10^3/uL (0.1-0.6); Absolute Neutrophils 7.9 10^3/uL (1.4-6.5); Hematocrit 29.3 % (39.0-52.0); Hemoglobin 9.7 g/dL (13.0-18.0); Mean Corp Hgb Conc. 33.1 g/dL (33.0-37.0); Mean Corpuscular Volume 87.7 fL (80.0-94.0); Mean Platelet Volume 10.1 fL (7.4-10.4); Nucleated Red Blood Cells % 0 % (-); Platelet Count 207 10^3/uL (130-400); Red Blood Cell Count 3.34 10^6/uL (4.70-6.10); Red Cell Dist. Width 12.4 % (11.5-14.5); White Blood Cell Count 10.1 10^3/uL (4.8-10.8)
[2024-01-18 05:40] LABS: ALT (SGPT) 470 U/L (0-50); AST (SGOT) 223 U/L (17-59); Albumin 2.8 g/dl (3.5-5.0); Alkaline Phosphatase 185 U/L (38-126); Blood Urea Nitrogen 28 mg/dl (9-20); Calcium 8.7 mg/dl (8.4-10.2); Carbon Dioxide 23 mmol/L (22-30); Chloride 108 mmol/L (98-107); Estimated Creatinine Clearance 33 ml/min; Glucose 135 mg/dl (70-99); Potassium 4.4 mmol/L (3.5-5.1); Sodium 134 mmol/L (135-145); Total Protein 5.2 g/dl (6.3-8.2); eGFR 43.02
[2024-01-18 07:54] LABS: Glucose - Point of Care 132 mg/dl (70-99)
[2024-01-18 08:13] VITALS: BP 149/67
[2024-01-18] MEDS: NOVOLOG FLEXPEN-LOW RESISTANCE SC ×4 (08:14→17:26)
--- NOTE | 2024-01-18 08:21 | W.PN.GI.CBS2 ---
Addendum entered and electronically signed by Pam Simon MD 01/18/24 09:55:
Noted blood cx positive, await final results
Original Note:
Today's Communication / Plan
-
-Liver mass, 8.8 cm in size, no biliary ductal dilation, no pancreatic duct dilation.
As per MRI, cannot definitely make a diagnosis of primary liver tumor/metastatic will need to check with [facility] to review the imaging and for direction
Normal total bilirubin but elevated direct bilirubin, elevated transaminases and alkaline phosphatase
Hepatitis B and C serologies previously negative.
Await alpha-fetoprotein
- Anemia without evidence of GI bleeding
Chronic ,?multifactorial with CRI
Will check celiac, iron studies,b12
On PPI
-Severe constipation noted on CT scan
Received mineral oil enema-and milk of molasses enema- some effect, will try MoM enema and mag citrate today.
continue MiraLAX twice a day
Will monitor bowel movements and will titrate laxatives based on the bowel pattern.
Will follow
Assessment / Plan
-
83-year-old male with history of CAD, hypertension, cholesterol, diabetes, COPD, peripheral vascular disease, side dementia, history of perforated diverticulitis needing Haritha procedure in 2020, presenting from [facility] with
severe abdominal pain, CT scan without contrast showing evidence of severe constipation but also noted is new liver mass suspicious for malignancy.
MRI Abdomen-Large lobular 9.8 x 7.3 x 6.9 cm mass in the left lobe of liver, as described.
Signal and enhancement characteristics are not specific for any one definitive diagnosis. This does not represent an hemangioma. Does not have typical imaging findings for adenoma, or hepatocellular carcinoma; there does not appear to be underlying
chronic liver disease. Possibly focal nodular hyperplasia, though not typical. In addition, relative short-term interval development is somewhat concerning. A solitary metastatic lesion is felt to be unlikely given the suggestion of low-level uptake
of Eovist in the hepatocyte phase.
-Liver mass, 8.8 cm in size, no biliary ductal dilation, no pancreatic duct dilation.
As per MRI, cannot definitely make a diagnosis of primary liver tumor/metastatic will need to check with [facility] to review the imaging and for direction
Normal total bilirubin but elevated direct bilirubin, elevated transaminases and alkaline phosphatase
Hepatitis B and C serologies previously negative.
Await alpha-fetoprotein
- Anemia without evidence of GI bleeding
Chronic ,?multifactorial with CRI
Will check celiac, iron studies,b12
On PPI
-Severe constipation noted on CT scan
Received mineral oil enema-and milk of molasses enema- some effect, will try MoM enema and mag citrate today.
continue MiraLAX twice a day
Will monitor bowel movements and will titrate laxatives based on the bowel pattern.
Will follow
Subjective
Subjective
Date of Service: January 18, 2024
Small borwn hard stool after enema 01/16 but not significant. Pt mostly sleeps and does not complain.
No abdominal pain,vomiting
Objective
Data Reviewed
Laboratory Data:
Laboratory Results
01/18/24 05:08
01/18/24 05:08
Laboratory Results
Total Bilirubin 1.0 mg/dl (0.2-1.3) 01/18/24 05:08
AST 223 U/L (17-59) H 01/18/24 05:08
ALT 470 U/L (0-50) H 01/18/24 05:08
Alkaline Phosphatase 185 U/L (38-126) H 01/18/24 05:08
Lipase 29 U/L (23-300) 01/16/24 23:16
Vital Signs and I&O:
Vital Signs
Temp Pulse Resp BP Pulse Ox
98 F 76 16 149/67 91
01/18/24 08:13 01/18/24 08:13 01/18/24 08:13 01/18/24 08:13 01/18/24 08:13
I&O
01/17/24 01/18/24 01/19/24
06:59 06:59 06:59
Intake Total 200 / 200 1020 / 1020
Output Total 180 / 180
Balance 200 / 200 840 / 840
Physical Exam
Physical Exam
GI: Soft, Non Distended and Normal Bowel Sounds
--- NOTE | 2024-01-18 08:58 | W.PN.CRS1 ---
Today's Communication / Plan
-
bowel regiment
liver w/u per GI
no plans for surgery
Assessment/Plan
-
83-year-old male with dementia (A&O x 2 today), group home resident, CAD s/p CABG, HTN, DM, CKD, CHF, COPD, perforated diverticulitis s/p Diallo's [place] [address] Salamanca who presents due to nursing report of abdominal pain and chest pain; patient
poor historian but does report left-sided abdominal pain, WBC 12.8, Cr 1.7, LFTs elevated, T. bili 1.3, CT without contrast showing new large liver mass, heavy stool burden, distended stomach with food material; colorectal consulted for protruding
stoma and abdominal pain
Tmax 100.6 yesterday, HR 76-104, normotensive, ABD soft, nondistended, nontender, ostomy pink with mild prolapse, air in bag with no stool
1. Diet per primary; if N/V, recommend n.p.o. with IVF.
2. No concerning issues with his ostomy; has prominent bud but no evidence of prolapse or ischemia
3. Liver mass w/u per GI.
4. Currently on Colace 100mg BID and Miralax BID. Receiving magnesium citrate this morning and milk and molasses enema per GI.
5. No plans for surgery at this time.
Subjective Data
Subjective Data
Date of Service: January 18, 2024
Patient is sleeping and does not want to be disturbed. When asked if he has pain, he states 'no'.
Objective Data
-
Vital Signs
Temp Pulse Resp BP Pulse Ox
98 F 76 16 149/67 91
01/18/24 08:13 01/18/24 08:13 01/18/24 08:13 01/18/24 08:13 01/18/24 08:13
Intake & Output
01/17/24 01/18/24 01/19/24
06:59 06:59 06:59
Intake Total 200 / 200 1020 / 1020
Output Total 180 / 180
Balance 200 / 200 840 / 840
Intake:
Oral fluids 300 / 300
IV fluids (Total) 200 / 200 720 / 720
Output:
Urine, Voided 180 / 180
Other:
How many times incontinent 1
SMALL amount urine
How many times incontinent 1 2
SATURATED amount urine
Lab Results
01/18/24 05:08
01/18/24 05:08
Physical Exam
-
General: No Acute Distress
Abdomen: Soft, Non Distended, Non Tender and Other (stoma with mild prolapse, soft, non tender, air in bag)
Skin: Warm and Dry
[2024-01-18] MEDS: ASPIR LOW (ENTERIC COATED) 81 MG PO (09:14)
[2024-01-18] MEDS: COLACE 100 MG PO (09:14)
[2024-01-18] MEDS: IMDUR (EXTENDED RELEASE) 60 MG PO (09:14)
[2024-01-18] MEDS: DEPAKOTE (12 HR RELEASE) 125 MG PO (09:14)
[2024-01-18] MEDS: WELLBUTRIN REGULAR RELEASE 100 MG PO (09:14)
[2024-01-18] MEDS: LOPRESSOR 25 MG PO (09:14)
[2024-01-18] MEDS: MIRALAX 17 GRAMS PO (09:14)
[2024-01-18] MEDS: RISPERDAL 0.25 MG PO (09:15)
[2024-01-18] MEDS: PLETAL 100 MG PO (09:15)
[2024-01-18] MEDS: PROTONIX 40 MG PO (09:15)
--- NOTE | 2024-01-18 11:33 | PTCARENOTE ---
Patient refusing ordered magnesium citrate per GI; this RN educated patient on reason for medication and importance of relieving constipation, diluted medication with ice and water but patient continuing to refuse. GI made aware. Ordered milk and
molasses enema administered by this RN with assistance of tech via stoma; patient tolerated procedure, states no concerns at this time.
[2024-01-18 11:56] LABS: Glucose - Point of Care 171 mg/dl (70-99)
[2024-01-18] MEDS: ZOSYN 50 IV ×2 (12:00→17:26)
[2024-01-18] MEDS: NSS 1000 IV (12:48)
--- NOTE | 2024-01-18 12:55 | W.PN.HOSP.TC ---
Today's Communication/Plan
-
see note
Assessment / Plan
Assessment / Plan
MRI abd
Limited by respiratory motion degradation.
Large lobular 9.8 x 7.3 x 6.9 cm mass in the left lobe of liver, as described.
Signal and enhancement characteristics are not specific for any one definitive diagnosis. This does not represent an hemangioma. Does not have typical imaging findings for adenoma, or hepatocellular carcinoma; there does not appear to be underlying
chronic liver disease. Possibly focal nodular hyperplasia, though not typical. In addition, relative short-term interval development is somewhat concerning. A solitary metastatic lesion is felt to be unlikely given the suggestion of low-level uptake
of Eovist in the hepatocyte phase.
Ultimately, biopsy would be recommended.
Cholelithiasis. No bile duct dilatation.
Mild medial portacaval adenopathy measuring 11 cm.

1. Liver mass
Elevated liver enzymes
Abdominal pain - better
-CT without contrast showing new large liver mass, heavy stool burden, distended stomach with food material
-MRI abdomen pelvis report as above
-AFP pending. No history of hepatitis infection.
-F/u LFT level
-GI evaluated and planning to discuss with go cart mechanic for further recommendation
-Possibly will require liver biopsy
2. Sepsis
Ecoli bacteremia
History of Pseudomonas/E. coli UTI
-Source of gram-negative bacteremia possible urine tract infection versus intra-abdominal
-Blood culture both sets growing gram-negative bacteria
-Follow-up culture reports for susceptibility of E. coli
-Currently on cefepime, continue
3. Acute toxic metabolic encephalopathy
-Patient difficult to arouse today, minimally responsive to painful stimuli
-Check ABG for CO2 narcosis
-Hold Risperdal/bupropion. Continue Depakote, check valproic acid level
-Check COVID
-CT head w/o contrast
4. Dementia w behavioral issues
-Hold bupropion/Risperdal until mentation better
- Continue Depakote for now.
5. CKD IIIA
- Cr is close to baseline, continue monitor
6. History of Perforated diverticulitis s/p Diallo's [place] [address] Salamanca
-evaluated by CRS and functioning stomy. no indication.
Coronary disease s/p bypass
Essential hypertension
Insulin-dependent erythematous
Hyperlipidemia
Benign prostatic hyperplasia
Chronic Obstructive Pulmonary Disease
DVT PPX - Lovenox sq
Code status - DNR
Total time spent : 52 mins
I personally saw and examined the patient.
I have reviewed all diagnostic interpretations and treatment plans as written.
Time includes patient management by me, time spent at the patients bedside, time to review lab and imaging results, discussing patient care, documentation in the medical record, and time spent with the family or caregiver and discussing care plan
with RN/Consultants.
Anticipated Discharge: > 48 hours
Subjective/Interval History
-
Date of Service: January 18, 2024
Patient somnolent, difficult to arouse
episode of fever overnight
BP controlled
Objective Data
-
Labs:
Laboratory Results
01/18/24 01/18/24
05:08 12:53
WBC 10.1
Hgb 9.7 L
Hct 29.3 L
Plt Count 207 D
HCO3 Pending
Sodium 134 L
Potassium 4.4
Chloride 108 H
Carbon Dioxide 23
BUN 28 H
Creatinine 1.6 H
Glucose 135 H
Calcium 8.7
Total Bilirubin 1.0
AST 223 H
ALT 470 H
Alkaline Phosphatase 185 H
Vital Signs:
Vital Signs
Temp Pulse Resp BP Pulse Ox
98 F 76 16 149/67 91
01/18/24 08:13 01/18/24 09:14 01/18/24 08:13 01/18/24 09:14 01/18/24 08:13
I&O
01/17/24 01/18/24 01/19/24
06:59 06:59 06:59
Intake Total 200 / 200 1020 / 1020
Output Total 180 / 180
Balance 200 / 200 840 / 840
Review of Systems
-
Unable to obtain full review of systems at this time due to: Acuity
Physical Exam
-
General: No Apparent Distress
HEENT: Moist Mucous Membranes; Negative Oxygen
Respiratory: Clear to Auscultation
Cardiac: Regular Rhythm and S1/S2; Negative Murmur, Rub or Gallop
GI: Soft, Nontender and Ostomy
Musculoskeletal: No Edema
Skin: Negative Rash
Neuro: Negative Awake or Alert
[2024-01-18] MEDS: NOVOLOG FLEXPEN-LOW RESISTANCE 1 UNITS SC (13:36)
--- NOTE | 2024-01-18 13:45 | PTCARENOTE ---
Patient lethargic throughout shift, difficult to arouse to both verbal and tactile stimuli; patient grimacing with sternal rub, resistant to RN and tech attempting to reposition patient in bed, unresponsive when addressed by name. Vitals BP 113/47,
HR 73, 93% RA, ax temp 98.2F, blood sugar 171. MD made aware, orders to hold scheduled wellbutrin and risperdal, ABGs, head CT, valproic acid level check, COVID test placed.
[2024-01-18 14:08] LABS: Depakane 21.4 ug/ml (50.0-120.0)
--- NOTE | 2024-01-18 14:36 | PTCARENOTE ---
Patient attempting to bite tech's arm when administering COVID nasal swab as well as respiratory therapist when attempting to draw ABG levels. MD made aware, order for ABGs cancelled, COVID swab taken and sent down to lab. Patient awake and alert at
this time, MD made aware, patient to head CT as ordered.
--- NOTE | 2024-01-18 15:44 | CM ---
Reviewed the chart notes. CM continues to be available to patient/family and is monitoring medical plan for needs at discharge.
Plan: Discharge back to [facility] when medically stable. No precert required. picking belt operator resident.
[2024-01-18 16:12] VITALS: BP 136/54
[2024-01-18 16:39] LABS: Glucose - Point of Care 221 mg/dl (70-99)
[2024-01-18] MEDS: LOVENOX SC ×2 (17:26→18:18)
[2024-01-18] MEDS: IMDUR (EXTENDED RELEASE) PO ×2 (17:26→18:18)
[2024-01-18] MEDS: NORVASC PO ×2 (17:29→18:18)
--- NOTE | 2024-01-18 18:31 | PTCARENOTE ---
Patient drowsy but arousable in bed, refusing evening medications including PO norvasc, PO imdur, subq lovenox; patient's blood sugar 221, patient refusing to sit up and eat dinner, novolog held. Patient laying in bed with eyes closed, when
attempting to reposition patient, patient swung arms at this RN and tech, stated 'leave me alone.' made aware, no new orders at this time. IVF and zosyn infusing through R [facility] IV.
[2024-01-18 20:07] LABS: AFP Male/Tumor Marker 1.43 ng/ml
[2024-01-18] MEDS: DEPAKOTE (12 HR RELEASE) PO (21:04)
[2024-01-18] MEDS: COLACE PO (21:04)
[2024-01-18] MEDS: LOPRESSOR PO (21:04)
[2024-01-18] MEDS: MIRALAX PO (21:09)
[2024-01-18] MEDS: PLETAL PO (21:09)
--- NOTE | 2024-01-18 21:15 | PTCARENOTE ---
Patient is refusing medications including Depakote, Lopressor, and Cilostazol. Patient will not allow us to take his vital signs. Patient is hitting and grabbing objects such as blood pressure cuff and not letting go. Patient has his eyes closed and
will not respond to commands. SENIOR DATABASE ENGINEER made aware, no new orders at this time. IVF infusing at this time.
[2024-01-18 23:07] VITALS: BP 142/42
[2024-01-18] MEDS: FLOMAX PO (23:08)
[2024-01-19] MEDS: ZOSYN 50 IV ×5 (00:02→23:48)
[2024-01-19 06:40] LABS: % Basophils 0.5 % (0-2); % Eosinophils 5.7 % (0-6); % Immature Granulocytes 1.1 % (0-0.5); % Lymphocytes 13.6 % (20.5-51.1); % Monocytes 8.4 % (1.7-9.3); % Neutrophils 70.7 % (42.2-75.2); Absolute Eosinophils 0.4 10^3/uL (0-0.7); Absolute Immature Granulocytes 0.1 10^3/uL (0-0.05); Absolute Lymphocytes 0.8 10^3/uL (1.2-3.4); Absolute Monocytes 0.5 10^3/uL (0.1-0.6); Absolute Neutrophils 4.4 10^3/uL (1.4-6.5); Hematocrit 29.6 % (39.0-52.0); Hemoglobin 9.9 g/dL (13.0-18.0); Mean Corp Hgb Conc. 33.4 g/dL (33.0-37.0); Mean Corpuscular Hgb 28.8 pg (27.0-31.0); Mean Platelet Volume 9.8 fL (7.4-10.4); Nucleated Red Blood Cells % 0 % (-); Platelet Count 211 10^3/uL (130-400); Red Blood Cell Count 3.44 10^6/uL (4.70-6.10); Red Cell Dist. Width 12.3 % (11.5-14.5); White Blood Cell Count 6.2 10^3/uL (4.8-10.8)
--- NOTE | 2024-01-19 06:40 | W.PN.GI.CBS2 ---
Today's Communication / Plan
-
See assessment and plan for details.
Assessment / Plan
-
1. Abdominal pain/liver lesion: Unclear etiology, in the setting of markedly elevated LFTs which are now improving, possibly passed CBD stone with otherwise negative MRI no duct dilation now. There is also a new liver lesion which is unclear on
MRI with and without contrast, alpha-fetoprotein normal, no underlying cirrhosis, previous hepatitis B antigen negative, less likely individual metastatic disease though still possible, atypical for FNH or adenoma, not consistent with hemangioma.
While there was some significant stool, most of this also seems to be distal to the diverting colostomy. On my review of the CT scan there was a large amount of material within the stomach with gastric distention as well, and given his pain
location other etiologies including peptic ulcer disease are possible though also seem less likely. His LFTs have been improving, await this morning's. Will continue PPI for now, check obstruction series to assess for gastric distention. Will try
to review imaging with hepatology at [place] to help further guide evaluation today.
Subjective
Subjective
Date of Service: January 19, 2024
Patient still complains of pain, mostly upper abdomen, radiating to back, no vomiting, not tolerating much diet. Did have some ostomy output.
Objective
Data Reviewed
Laboratory Data:
Laboratory Results
Total Bilirubin 1.0 mg/dl (0.2-1.3) 01/18/24 05:08
AST 223 U/L (17-59) H 01/18/24 05:08
ALT 470 U/L (0-50) H 01/18/24 05:08
Alkaline Phosphatase 185 U/L (38-126) H 01/18/24 05:08
Lipase 29 U/L (23-300) 01/16/24 23:16
Vital Signs and I&O:
Vital Signs
Temp Pulse Resp BP Pulse Ox
97.7 F 62 18 142/42 94
01/18/24 16:12 01/18/24 23:07 01/18/24 23:07 01/18/24 23:07 01/18/24 23:45
I&O
01/17/24 01/18/24 01/19/24
06:59 06:59 06:59
Intake Total 200 / 200 1020 / 1020 1540 / 1540
Output Total 180 / 180 800 / 800
Balance 200 / 200 840 / 840 740 / 740
Physical Exam
Physical Exam
General: NAD
Abdomen: normal bowel sounds, soft, mild diffuse and superficial tenderness, worse in the epigastrium, no masses or bruits, no ascites
[2024-01-19 07:00] LABS: ALT (SGPT) 259 U/L (0-50); AST (SGOT) 70 U/L (17-59); Albumin 2.9 g/dl (3.5-5.0); Alkaline Phosphatase 175 U/L (38-126); Blood Urea Nitrogen 22 mg/dl (9-20); Calcium 9.3 mg/dl (8.4-10.2); Carbon Dioxide 21 mmol/L (22-30); Chloride 106 mmol/L (98-107); Estimated Creatinine Clearance 35 ml/min; Glucose 144 mg/dl (70-99); Iron 46 ug/dl (49-181); Sodium 136 mmol/L (135-145); Total Bilirubin 0.7 mg/dl (0.2-1.3); Total Protein 5.4 g/dl (6.3-8.2); eGFR 46.48
[2024-01-19 07:09] LABS: Percent Saturation 17 % (20-50); Total Iron Binding Capacity 257 ug/dl (261-462)
[2024-01-19 07:35] LABS: Ferritin 76.9 ng/ml (17.9-464.0)
[2024-01-19 08:06] LABS: Folate 14.3 ng/ml (2.76-20); Vitamin B12 717 pg/ml (239-931)
[2024-01-19 09:23] LABS: Glucose - Point of Care 145 mg/dl (70-99)
[2024-01-19 09:29] VITALS: BP 171/65
[2024-01-19] MEDS: NOVOLOG FLEXPEN-LOW RESISTANCE SC ×2 (09:34→14:00)
[2024-01-19] MEDS: IMDUR (EXTENDED RELEASE) PO (09:41)
[2024-01-19] MEDS: PROTONIX PO (09:41)
[2024-01-19] MEDS: LOPRESSOR PO ×3 (09:41→21:49)
[2024-01-19] MEDS: PLETAL PO ×3 (09:41→21:49)
[2024-01-19] MEDS: MIRALAX PO (09:41)
[2024-01-19] MEDS: DEPAKOTE (12 HR RELEASE) PO ×3 (09:41→21:49)
[2024-01-19] MEDS: ASPIR LOW (ENTERIC COATED) PO (09:42)
[2024-01-19] MEDS: COLACE PO ×3 (09:42→21:49)
--- NOTE | 2024-01-19 09:42 | PTCARENOTE ---
this RN brought the pts their medication and the pt stated that they did not want to take their medications this morning, this RN provided education to the pt on how important it is to take their medication and the pt stated to this RN, 'I don't
want to take them and i'm not eating either, so go away', this RN notified their nurse
--- NOTE | 2024-01-19 10:12 | CM ---
Reviewed the chart notes. Patient refusing medications. Poor appetite per notes. CM continues to be available to patient/family and is monitoring medical plan for needs at discharge.
Plan: Discharge back to [facility] when medically stable. No precert required. parts counterman resident.
--- NOTE | 2024-01-19 10:32 | W.PN.HOSP.TC ---
Today's Communication/Plan
-
see note
Assessment / Plan
Assessment / Plan
MRI abd
Limited by respiratory motion degradation.
Large lobular 9.8 x 7.3 x 6.9 cm mass in the left lobe of liver, as described.
Signal and enhancement characteristics are not specific for any one definitive diagnosis. This does not represent an hemangioma. Does not have typical imaging findings for adenoma, or hepatocellular carcinoma; there does not appear to be underlying
chronic liver disease. Possibly focal nodular hyperplasia, though not typical. In addition, relative short-term interval development is somewhat concerning. A solitary metastatic lesion is felt to be unlikely given the suggestion of low-level uptake
of Eovist in the hepatocyte phase.
Ultimately, biopsy would be recommended.
Cholelithiasis. No bile duct dilatation.
Mild medial portacaval adenopathy measuring 11 cm.

1. Liver mass
Elevated liver enzymes
Abdominal pain - better
-CT without contrast showing new large liver mass, heavy stool burden, distended stomach with food material
-MRI abdomen pelvis report as above
-AFP WNL. No history of hepatitis infection.
-F/u LFT level
-GI evaluated and planning to discuss with sprinkler tender for further recommendation
-Possibly will require liver biopsy
2. Sepsis
Ecoli bacteremia
Aerococcus UTI
History of Pseudomonas/E. coli UTI
-Source of gram-negative bacteremia possible urine tract infection versus intra-abdominal
-Blood culture both sets growing Ecoli - susceptibility pending
-Urine culture growing, Aerococcus
-on zosyn, will de-escalate based on culture report
-repeat culture ordered to check bacterial clearance
3. Acute toxic metabolic encephalopathy - improved
-Patient difficult to arouse today, minimally responsive to painful stimuli
-did not allow ABG draw.
-Hold Risperdal/bupropion. Continue Depakote, valproic acid level WNL.
-CT head w/o contrast neg.
-COVID pending.
4. Dementia w behavioral issues
-Hold bupropion/Risperdal until mentation better
-Continue Depakote for now.
5. CKD IIIA
- Cr is close to baseline, continue monitor
6. History of Perforated diverticulitis s/p Diallo's [place] [address] Salamanca
-evaluated by CRS and functioning stomy
-wafer/dressing coming off, wound/head concierge consulted for help
Coronary disease s/p bypass
Essential hypertension
Insulin-dependent erythematous
Hyperlipidemia
Benign prostatic hyperplasia
Chronic Obstructive Pulmonary Disease
DVT PPX - Lovenox sq
Code status - DNR
Anticipated Discharge: > 48 hours
Subjective/Interval History
-
Date of Service: January 19, 2024
more awake today
afebrile in night
resting comfortably in bed
Objective Data
-
Labs:
Laboratory Results
01/19/24
06:05
WBC 6.2
Hgb 9.9 L
Hct 29.6 L
Plt Count 211
Sodium 136
Potassium 4.0
Chloride 106
Carbon Dioxide 21 L
BUN 22 H
Creatinine 1.5 H
Glucose 144 H
Calcium 9.3
Total Bilirubin 0.7
AST 70 H
ALT 259 H
Alkaline Phosphatase 175 H
Vital Signs:
Vital Signs
Temp Pulse Resp BP Pulse Ox
98.4 F 63 18 171/65 96
01/19/24 09:29 01/19/24 09:29 01/19/24 09:29 01/19/24 09:29 01/19/24 09:29
I&O
01/18/24 01/19/24 01/20/24
06:59 06:59 06:59
Intake Total 1020 / 1020 1540 / 1540
Output Total 180 / 180 800 / 800
Balance 840 / 840 740 / 740
Review of Systems
-
Respiratory: Reports No Symptoms
Cardiac: Reports No Symptoms
Abdomen/GI: Reports No Symptoms
Physical Exam
-
General: No Apparent Distress
HEENT: Negative Oxygen
Respiratory: Clear to Auscultation
Cardiac: Regular Rhythm and S1/S2; Negative Murmur, Rub or Gallop
GI: Soft, Nontender and Ostomy (dressing/wafer off )
Musculoskeletal: No Edema
Skin: Negative Rash
Neuro: Awake, Alert and No Motor Deficits
--- NOTE | 2024-01-19 12:21 | W.PN.UPDATE ---
Update Note
Progress Note Update
Patient feeling better, tolerated diet without difficulty. I reviewed the case with Dr. Arroyo at [place]. Atypical MR appearance, no cirrhosis, AFP normal, doubt abscess/hemangioma, atypical for FNH/adenoma, concern for malignancy. Will check
CEA/CA 19-9, plan biopsy. E coli bacteremia with markedly elevatd LFTs and pain could have been from passed CBD stone/cholangitis. Will continue observation for now.
--- NOTE | 2024-01-19 13:00 | WOUNDNOTE ---
MARTINE RN NOTE: Asked to see patient for Ostomy assistance. Patient admitted with Colostomy, wafer lifting off skin and frequent change of pouches nurse states. Patient has history of dementia, resident of [facility]. Patient received on R side in
position. Nurse assisted with turning patient onto back, patient was resistant and stiff to turn. Sacrum and heels are intact. Stoma appears pink and budded, no prolapse, peristomal skin intact. Currently wearing a 4' 2 piece [place]
appliance, wafer lifting off medial lower corner, no leakage. With nurse at bedside, applied 2 3/4' 2 piece Yen appliance with Josseline seal and paste. Had patient lay on back until appliance adhered. Additional supplies at bedside, teaching done
with nurse. Patient not a candidate for teaching. Will update work list and sign off unless needed.
[2024-01-19 13:29] LABS: CEA 1.96 ng/ml
[2024-01-19 16:00] VITALS: BP 143/52
[2024-01-19 17:42] LABS: Glucose - Point of Care 240 mg/dl (70-99)
[2024-01-19] MEDS: NORVASC 10 MG PO (18:17)
[2024-01-19] MEDS: LOVENOX 30 MG SC (18:18)
[2024-01-19] MEDS: IMDUR (EXTENDED RELEASE) 60 MG PO (18:18)
[2024-01-19] MEDS: NOVOLOG FLEXPEN-LOW RESISTANCE 2 UNITS SC (18:18)
[2024-01-19] MEDS: MIRALAX 17 GRAMS PO (20:28)
[2024-01-19] MEDS: FLOMAX PO (21:48)
--- NOTE | 2024-01-19 22:07 | PTCARENOTE ---
Patient is refusing all care from this nurse and PCT. This nurse educated the patient on the importance of these tasks. When attempting to perform these tasks the patient became aggressive hitting, grabbing, and attempting to bite. This nurse called
Nephandres Caruso to attempt to calm down the patient. Unsuccessful attempt to have patient take medication. Messaged RN DELIVERY. No new orders at this time. Patient is calm in room when care is not being provided
[2024-01-19 23:40] VITALS: BP 138/84
[2024-01-20] MEDS: ZOSYN 50 IV ×2 (05:29→13:12)
--- NOTE | 2024-01-20 06:08 | W.PN.GI.CBS2 ---
Today's Communication / Plan
-
See assessment and plan for details.
Assessment / Plan
-
1. Abdominal pain/fever/elevated LFT: With E. coli bacteremia, markedly elevated LFTs on admission, now all much improved, afebrile, exam benign. While he does have a UTI culture is without E. coli, and given constellation of symptoms and location
of pain more likely passed CBD stone with transient cholangitis. He is tolerating diet, afebrile, LFTs improving, await this morning's labs.
2. Liver lesion: Solid, atypical for FNH or adenoma on MRI, less likely to be large solitary metastatic disease though still possible, alpha-fetoprotein normal, no suggestion of underlying cirrhosis. CEA normal, CA 19-9 pending. I discussed the
case again with Dr. Arroyo, for biopsy today.
Subjective
Subjective
Date of Service: January 20, 2024
Patient feeling okay, no events overnight, tolerated diet without any difficulty yesterday. Obstruction series without any abnormal gas patterns. Continues to be afebrile.
Objective
Data Reviewed
Laboratory Data:
Laboratory Results
Total Bilirubin 0.7 mg/dl (0.2-1.3) 01/19/24 06:05
AST 70 U/L (17-59) H 01/19/24 06:05
ALT 259 U/L (0-50) H 01/19/24 06:05
Alkaline Phosphatase 175 U/L (38-126) H 01/19/24 06:05
Lipase 29 U/L (23-300) 01/16/24 23:16
Vital Signs and I&O:
Vital Signs
Temp Pulse Resp BP Pulse Ox
98.5 F 96 16 138/84 96
01/19/24 23:40 01/19/24 23:40 01/19/24 23:40 01/19/24 23:40 01/20/24 00:51
I&O
0401/19/24 01/20/24
06:59 06:59 06:59
Intake Total 1020 / 1020 1540 / 1540 220 / 220
Output Total 180 / 180 800 / 800 750 / 750
Balance 840 / 840 740 / 740 -530 / -530
Physical Exam
Physical Exam
General: NAD
Abdomen: normal bowel sounds, soft, no tenderness, no masses or bruits, no ascites, ostomy in the left lower quadrant
[2024-01-20 07:50] VITALS: BP 145/52
[2024-01-20 08:10] LABS: Glucose - Point of Care 166 mg/dl (70-99)
[2024-01-20 08:31] LABS: % Basophils 0.9 % (0-2); % Eosinophils 5.8 % (0-6); % Immature Granulocytes 1.6 % (0-0.5); % Lymphocytes 22.6 % (20.5-51.1); % Monocytes 12.1 % (1.7-9.3); Absolute Basophils 0.1 10^3/uL (0-0.2); Absolute Eosinophils 0.3 10^3/uL (0-0.7); Absolute Immature Granulocytes 0.1 10^3/uL (0-0.05); Absolute Lymphocytes 1.3 10^3/uL (1.2-3.4); Absolute Monocytes 0.7 10^3/uL (0.1-0.6); Absolute Neutrophils 3.3 10^3/uL (1.4-6.5); Hematocrit 31.3 % (39.0-52.0); Hemoglobin 10.9 g/dL (13.0-18.0); Mean Corp Hgb Conc. 34.8 g/dL (33.0-37.0); Mean Corpuscular Hgb 29.4 pg (27.0-31.0); Mean Corpuscular Volume 84.4 fL (80.0-94.0); Mean Platelet Volume 9.9 fL (7.4-10.4); Nucleated Red Blood Cells % 0 % (-); Platelet Count 226 10^3/uL (130-400); Red Blood Cell Count 3.71 10^6/uL (4.70-6.10); Red Cell Dist. Width 12.2 % (11.5-14.5); White Blood Cell Count 5.7 10^3/uL (4.8-10.8)
[2024-01-20 09:16] LABS: ALT (SGPT) 180 U/L (0-50); AST (SGOT) 31 U/L (17-59); Albumin 3.1 g/dl (3.5-5.0); Alkaline Phosphatase 170 U/L (38-126); Blood Urea Nitrogen 19 mg/dl (9-20); Calcium 9.4 mg/dl (8.4-10.2); Carbon Dioxide 22 mmol/L (22-30); Chloride 106 mmol/L (98-107); Estimated Creatinine Clearance 40 ml/min; Glucose 182 mg/dl (70-99); Potassium 4.3 mmol/L (3.5-5.1); Sodium 136 mmol/L (135-145); Total Bilirubin 0.5 mg/dl (0.2-1.3); Total Protein 5.8 g/dl (6.3-8.2); eGFR 55.19
[2024-01-20] MEDS: LOPRESSOR 25 MG PO ×2 (09:29→21:18)
[2024-01-20] MEDS: PROTONIX 40 MG PO (09:29)
[2024-01-20] MEDS: COLACE 100 MG PO ×2 (09:29→21:17)
[2024-01-20] MEDS: DEPAKOTE (12 HR RELEASE) 125 MG PO ×2 (09:29→21:17)
[2024-01-20] MEDS: IMDUR (EXTENDED RELEASE) 60 MG PO ×2 (09:30→18:32)
[2024-01-20] MEDS: NOVOLOG FLEXPEN-LOW RESISTANCE 1 UNITS SC (09:31)
[2024-01-20] MEDS: MIRALAX 17 GRAMS PO ×2 (09:31→21:19)
[2024-01-20] MEDS: PLETAL PO (09:31)
[2024-01-20] MEDS: ASPIR LOW (ENTERIC COATED) PO (09:32)
--- NOTE | 2024-01-20 10:00 | PTCARENOTE ---
Patient awake/alert and agreed to take morning pills, blood work done and set up for breakfast. Nephew visited yesterday and encouraged to participate with plan of care. Patient with periods of uncooperativeness with staff.
--- NOTE | 2024-01-20 11:13 | CM ---
Reviewed the chart notes. Per notes, patient scheduled for liver biopsy today. CM continues to be available to patient/family and is monitoring medical plan for needs at discharge.
Plan: Discharge back to [facility] when medically stable. No precert required, [facility] is a [facility] resident.
[2024-01-20 12:27] LABS: Glucose - Point of Care 214 mg/dl (70-99)
--- NOTE | 2024-01-20 12:54 | W.PN.HOSP.TC ---
Today's Communication/Plan
-
change abx to unasyn
hold asa/cilostazol
eventual liver biopsy
Assessment / Plan
Assessment / Plan
MRI abd
Limited by respiratory motion degradation.
Large lobular 9.8 x 7.3 x 6.9 cm mass in the left lobe of liver, as described.
Signal and enhancement characteristics are not specific for any one definitive diagnosis. This does not represent an hemangioma. Does not have typical imaging findings for adenoma, or hepatocellular carcinoma; there does not appear to be underlying
chronic liver disease. Possibly focal nodular hyperplasia, though not typical. In addition, relative short-term interval development is somewhat concerning. A solitary metastatic lesion is felt to be unlikely given the suggestion of low-level uptake
of Eovist in the hepatocyte phase.
Ultimately, biopsy would be recommended.
Cholelithiasis. No bile duct dilatation.
Mild medial portacaval adenopathy measuring 11 cm.

1. Liver mass
Elevated liver enzymes
Abdominal pain - better
-CT without contrast showing new large liver mass, heavy stool burden, distended stomach with food material
-MRI abdomen pelvis report as above
-AFP WNL. No history of hepatitis infection.
-F/u LFT level
-IRAD planning to do liver biopsy after aspirin/cilostazol washout
2. Sepsis
Ecoli bacteremia
Aerococcus UTI
History of Pseudomonas/E. coli UTI
-Source of gram-negative bacteremia possible urine tract infection versus intra-abdominal
-Blood culture both sets growing Ecoli - partially drug resistant
-Urine culture growing, Aerococcus
-repeat culture ordered to check bacterial clearance
-Change Zosyn to Unasyn.
3. Acute toxic metabolic encephalopathy - improved
-Patient difficult to arouse today, minimally responsive to painful stimuli
-did not allow ABG draw.
-Hold Risperdal/bupropion. Continue Depakote, valproic acid level WNL.
-CT head w/o contrast neg.
-COVID neg.
4. Dementia w behavioral issues
-Hold bupropion/Risperdal until mentation better
-Continue Depakote for now.
5. CKD IIIA
- Cr is close to baseline, continue monitor
6. History of Perforated diverticulitis s/p Diallo's [place] [address] Salamanca
-evaluated by CRS and functioning stomy
-wafer/dressing coming off, wound/soils analyst consulted for help
Coronary disease s/p bypass
Essential hypertension
Insulin-dependent erythematous
Hyperlipidemia
Benign prostatic hyperplasia
Chronic Obstructive Pulmonary Disease
DVT PPX - Lovenox sq
Code status - DNR
Anticipated Discharge: > 48 hours
Subjective/Interval History
-
Date of Service: January 20, 2024
afebrile overnight
denies abd pain/nausea
Objective Data
-
Labs:
Laboratory Results
01/20/24
08:05
WBC 5.7
Hgb 10.9 L
Hct 31.3 L
Plt Count 226
Sodium 136
Potassium 4.3
Chloride 106
Carbon Dioxide 22
BUN 19
Creatinine 1.3
Glucose 182 H
Calcium 9.4
Total Bilirubin 0.5
AST 31
ALT 180 H
Alkaline Phosphatase 170 H
Vital Signs:
Vital Signs
Temp Pulse Resp BP Pulse Ox
97.6 F 57 16 145/52 94
01/20/24 07:50 01/20/24 09:29 01/20/24 07:50 01/20/24 09:29 01/20/24 07:50
I&O
01/19/24 01/20/24 01/21/24
06:59 06:59 06:59
Intake Total 1540 / 1540 220 / 220
Output Total 800 / 800 750 / 750
Balance 740 / 740 -530 / -530
Review of Systems
-
Respiratory: Reports No Symptoms
Cardiac: Reports No Symptoms
Abdomen/GI: Reports No Symptoms
Physical Exam
-
General: No Apparent Distress
HEENT: Negative Oxygen
Respiratory: Clear to Auscultation
Cardiac: Regular Rhythm and S1/S2; Negative Murmur, Rub or Gallop
GI: Soft, Nontender and Ostomy (dressing/wafer off )
Musculoskeletal: No Edema
Skin: Negative Rash
Neuro: Awake, Alert and No Motor Deficits
[2024-01-20] MEDS: NOVOLOG FLEXPEN-LOW RESISTANCE 2 UNITS SC ×2 (13:03→18:32)
[2024-01-20 14:27] LABS: tTG IgA Antibody 8.7 EU/ml (0-19); tTG IgG Antibody 17.1 EU/ml (0-19)
[2024-01-20 14:37] LABS: CA 19-9 44 U/mL (<=35)
[2024-01-20 15:35] VITALS: BP 150/58
[2024-01-20 16:55] LABS: Glucose - Point of Care 209 mg/dl (70-99)
[2024-01-20 18:30] VITALS: BP 156/104
[2024-01-20] MEDS: NORVASC 10 MG PO (18:31)
[2024-01-20] MEDS: LOVENOX 30 MG SC (18:32)
[2024-01-20] MEDS: FLOMAX 0.400000000000000022 MG PO (21:17)
[2024-01-20] MEDS: UNASYN IV (21:19)
[2024-01-20 21:26] LABS: Glucose - Point of Care 244 mg/dl (70-99)
[2024-01-20 23:40] VITALS: BP 151/90
[2024-01-21 00:42] LABS: IgA 289 mg/dl (70-400)
[2024-01-21] MEDS: UNASYN IV ×4 (03:00→19:36)
--- NOTE | 2024-01-21 06:16 | W.PN.GI.CBS2 ---
Today's Communication / Plan
-
See assessment plan for details.
Assessment / Plan
-
1. Abdominal pain/fever/elevated LFT: With E. coli bacteremia, markedly elevated LFTs on admission, now all much improved, afebrile, exam benign. While he does have a UTI culture is without E. coli, and given constellation of symptoms and location
of pain more likely passed CBD stone with transient cholangitis. He is tolerating diet, afebrile, LFTs improving, await this morning's labs.
2. Liver lesion: Solid, atypical for FNH or adenoma on MRI, less likely to be large solitary metastatic disease though still possible, alpha-fetoprotein normal, no suggestion of underlying cirrhosis. CEA normal, CA 19-9 minimally elevated. I
discussed the case previously with Dr. Arroyo, for biopsy, though waiting on aspirin washout per IR.
Subjective
Subjective
Date of Service: January 21, 2024
Patient feeling well, denies abdominal pain, tolerated diet without any difficulty, no fever or chills.
Objective
Data Reviewed
Laboratory Data:
Laboratory Results
Total Bilirubin 0.5 mg/dl (0.2-1.3) 01/20/24 08:05
AST 31 U/L (17-59) 01/20/24 08:05
ALT 180 U/L (0-50) H 01/20/24 08:05
Alkaline Phosphatase 170 U/L (38-126) H 01/20/24 08:05
Lipase 29 U/L (23-300) 01/16/24 23:16
Vital Signs and I&O:
Vital Signs
Temp Pulse Resp BP Pulse Ox
98.4 F 47 16 151/90 95
01/20/24 23:40 01/20/24 23:40 01/20/24 23:40 01/20/24 23:40 01/20/24 23:40
I&O
01/19/24 01/20/24 01/21/24
06:59 06:59 06:59
Intake Total 1540 / 1540 220 / 220 780 / 780
Output Total 800 / 800 750 / 750 1075 / 1075
Balance 740 / 740 -530 / -530 -295 / -295
Physical Exam
Physical Exam
General: NAD
Abdomen: normal bowel sounds, soft, no tenderness, no masses or bruits, no ascites, ostomy left lower quadrant
[2024-01-21 06:18] LABS: INR 1.01; PT 13.3 Sec (11.4-14.6)
[2024-01-21 06:20] LABS: % Basophils 1.2 % (0-2); % Eosinophils 5.9 % (0-6); % Immature Granulocytes 1.7 % (0-0.5); % Lymphocytes 32.3 % (20.5-51.1); % Monocytes 10.1 % (1.7-9.3); % Neutrophils 48.8 % (42.2-75.2); Absolute Basophils 0.1 10^3/uL (0-0.2); Absolute Eosinophils 0.4 10^3/uL (0-0.7); Absolute Immature Granulocytes 0.1 10^3/uL (0-0.05); Absolute Lymphocytes 2.1 10^3/uL (1.2-3.4); Absolute Monocytes 0.7 10^3/uL (0.1-0.6); Absolute Neutrophils 3.1 10^3/uL (1.4-6.5); Hematocrit 30.5 % (39.0-52.0); Hemoglobin 10.4 g/dL (13.0-18.0); Mean Corp Hgb Conc. 34.1 g/dL (33.0-37.0); Mean Corpuscular Hgb 28.7 pg (27.0-31.0); Mean Platelet Volume 9.9 fL (7.4-10.4); Nucleated Red Blood Cells % 0 % (-); Platelet Count 245 10^3/uL (130-400); Red Blood Cell Count 3.63 10^6/uL (4.70-6.10); Red Cell Dist. Width 12.2 % (11.5-14.5); White Blood Cell Count 6.4 10^3/uL (4.8-10.8)
[2024-01-21 06:59] LABS: ALT (SGPT) 154 U/L (0-50); AST (SGOT) 31 U/L (17-59); Albumin 3.1 g/dl (3.5-5.0); Alkaline Phosphatase 171 U/L (38-126); Blood Urea Nitrogen 19 mg/dl (9-20); Calcium 9.1 mg/dl (8.4-10.2); Carbon Dioxide 22 mmol/L (22-30); Chloride 107 mmol/L (98-107); Estimated Creatinine Clearance 40 ml/min; Glucose 166 mg/dl (70-99); Potassium 4.2 mmol/L (3.5-5.1); Sodium 135 mmol/L (135-145); Total Bilirubin 0.4 mg/dl (0.2-1.3); Total Protein 5.7 g/dl (6.3-8.2); eGFR 55.19
[2024-01-21 07:10] LABS: Endomysial IgA Antibody Titer <1:10 (<1:10)
[2024-01-21 07:45] VITALS: BP 145/50
--- NOTE | 2024-01-21 07:52 | W.PN.HOSP.TC ---
Today's Communication/Plan
-
Liver biopsy once asa washout
continue abx
Assessment / Plan
Assessment / Plan
MRI abd
Limited by respiratory motion degradation.
Large lobular 9.8 x 7.3 x 6.9 cm mass in the left lobe of liver, as described.
Signal and enhancement characteristics are not specific for any one definitive diagnosis. This does not represent an hemangioma. Does not have typical imaging findings for adenoma, or hepatocellular carcinoma; there does not appear to be underlying
chronic liver disease. Possibly focal nodular hyperplasia, though not typical. In addition, relative short-term interval development is somewhat concerning. A solitary metastatic lesion is felt to be unlikely given the suggestion of low-level uptake
of Eovist in the hepatocyte phase.
Ultimately, biopsy would be recommended.
Cholelithiasis. No bile duct dilatation.
Mild medial portacaval adenopathy measuring 11 cm.

1. Liver mass
Elevated liver enzymes
Abdominal pain - better
-CT without contrast showing new large liver mass, heavy stool burden, distended stomach with food material
-MRI abdomen pelvis report as above
-AFP WNL. No history of hepatitis infection.
-F/u LFT level
-IRAD planning to do liver biopsy after aspirin/cilostazol washout
2. Sepsis
Ecoli bacteremia
Aerococcus UTI
History of Pseudomonas/E. coli UTI
-Source of gram-negative bacteremia possible urine tract infection versus intra-abdominal
-Blood culture both sets growing Ecoli - partially drug resistant
-Urine culture growing, Aerococcus
-repeat blood culture neg.
-Change Zosyn to Unasyn.
3. Acute toxic metabolic encephalopathy - improved
-did not allow ABG draw.
-Hold Risperdal/bupropion. Continue Depakote, valproic acid level WNL.
-CT head w/o contrast neg.
-COVID neg.
4. Dementia w behavioral issues
-Patient sedated with bupropion/Risperdal at admission, currently on hold and mentation remains pleasant.
-Continue Depakote for now.
5. CKD IIIA
- Cr is close to baseline, continue monitor
6. History of Perforated diverticulitis s/p Diallo's [place] [address] Salamanca
-evaluated by CRS and functioning stomy
-wafer/dressing was coming off, wound/credit risk associate placed new dressing .
Coronary disease s/p bypass
Essential hypertension
Insulin-dependent erythematous
Hyperlipidemia
Benign prostatic hyperplasia
Chronic Obstructive Pulmonary Disease
DVT PPX - Lovenox sq
Code status - DNR
Patient continued to decline oral medication. Remains pleasant most of the time.
Trying to pull out ostomy bag and have been replaced by nurse yesterday. Mitts ordered for protective measures.
Anticipated Discharge: > 48 hours
Subjective/Interval History
-
Date of Service: January 21, 2024
no reported problems overnight
patient continues to decline oral meds
no other problems
Objective Data
-
Labs:
Laboratory Results
01/21/24
05:12
WBC 6.4
Hgb 10.4 L
Hct 30.5 L
Plt Count 245
PT 13.3
INR 1.01
Sodium 135
Potassium 4.2
Chloride 107
Carbon Dioxide 22
BUN 19
Creatinine 1.3
Glucose 166 H
Calcium 9.1
Total Bilirubin 0.4
AST 31
ALT 154 H
Alkaline Phosphatase 171 H
Vital Signs:
Vital Signs
Temp Pulse Resp BP Pulse Ox
98.4 F 47 16 151/90 95
01/20/24 23:40 01/20/24 23:40 01/20/24 23:40 01/20/24 23:40 01/20/24 23:40
I&O
01/20/24 01/21/24 01/22/24
06:59 06:59 06:59
Intake Total 220 / 220 780 / 780
Output Total 750 / 750 1075 / 1075
Balance -530 / -530 -295 / -295
Review of Systems
-
Respiratory: Reports No Symptoms
Cardiac: Reports No Symptoms
Abdomen/GI: Reports No Symptoms
Physical Exam
-
General: No Apparent Distress
HEENT: Negative Oxygen
Respiratory: Clear to Auscultation
Cardiac: Regular Rhythm and S1/S2; Negative Murmur, Rub or Gallop
GI: Soft, Nontender and Ostomy (dressing/wafer off )
Musculoskeletal: No Edema
Skin: Negative Rash
Neuro: Awake, Alert and No Motor Deficits
[2024-01-21 08:07] LABS: Glucose - Point of Care 147 mg/dl (70-99)
[2024-01-21] MEDS: NOVOLOG FLEXPEN-LOW RESISTANCE SC (08:10)
[2024-01-21] MEDS: DEPAKOTE (12 HR RELEASE) PO ×2 (08:13→08:31)
[2024-01-21] MEDS: IMDUR (EXTENDED RELEASE) PO ×3 (08:13→17:18)
[2024-01-21] MEDS: PROTONIX PO ×2 (08:13→08:32)
[2024-01-21] MEDS: COLACE PO ×2 (08:13→08:31)
[2024-01-21] MEDS: LOPRESSOR PO ×2 (08:13→08:31)
[2024-01-21] MEDS: MIRALAX PO ×2 (08:13→08:31)
--- NOTE | 2024-01-21 08:32 | PTCARENOTE ---
Patient refusing AM meds. Ostomy appliance and condom catheter reapplied, patient pulled off. Medsitter and bed alarm on and monitoring.
--- NOTE | 2024-01-21 09:37 | CM ---
Reviewed the chart notes and spoke with the patient's nephew via telephone. Nephew informed of inpatient status and IMM discussed and placed on chart. Nephew confirmed discharge plan is back to [facility] when medically stable. CM
continues to be available to patient/family and is monitoring medical plan for needs at discharge.
Plan: Discharge back to [facility] when medically stable.
--- NOTE | 2024-01-21 09:38 | PTCARENOTE ---
Order received for bilateral mitts, applied.
[2024-01-21 11:51] LABS: Glucose - Point of Care 270 mg/dl (70-99)
[2024-01-21] MEDS: NOVOLOG FLEXPEN-LOW RESISTANCE 3 UNITS SC ×2 (13:04→17:14)
--- NOTE | 2024-01-21 15:00 | PTCARENOTE ---
Patient frequently taking bilateral mitts off and becoming increasingly agitated when staff puts them back on, now throwing fists at staff, attempting to bite. Due to agitation, decision was made to keep mitts off. Order cancelled per protocol.
[2024-01-21 16:00] VITALS: BP 159/62
[2024-01-21 16:24] LABS: Glucose - Point of Care 285 mg/dl (70-99)
[2024-01-21] MEDS: LOVENOX 30 MG SC (17:13)
[2024-01-21] MEDS: NORVASC PO (17:18)
[2024-01-21] MEDS: LOPRESSOR 25 MG PO (19:35)
[2024-01-21] MEDS: COLACE 100 MG PO (19:35)
[2024-01-21] MEDS: DEPAKOTE (12 HR RELEASE) 125 MG PO (19:35)
[2024-01-21] MEDS: MIRALAX 17 GRAMS PO (19:36)
[2024-01-21 21:34] LABS: Glucose - Point of Care 135 mg/dl (70-99)
[2024-01-21] MEDS: FLOMAX 0.400000000000000022 MG PO (22:37)
[2024-01-21 22:55] VITALS: BP 163/88
[2024-01-22] MEDS: UNASYN IV ×3 (02:46→18:21)
--- NOTE | 2024-01-22 05:04 | PTCARENOTE ---
Pt restless most of night, c/o knees and abd pain that was relieved with warm blankets. This morning around 0430 pt noted moaning and grimacing from pain again and when asked for the location of pain, pt noted rubbing his left chest area. Pt unable
to rate or describe pain. VSS 149/79, 50, T-97.3, pox 92% RA, rr 20. STONE LAYOUT MARKER made aware, EKG obtained, labs ordered. Pt resting quietly at this time, no distress noted.
[2024-01-22 06:08] LABS: Troponin I < 0.012 ng/ml
[2024-01-22 06:26] LABS: % Eosinophils 5.5 % (0-6); % Immature Granulocytes 1.9 % (0-0.5); % Lymphocytes 30.6 % (20.5-51.1); % Monocytes 10.4 % (1.7-9.3); % Neutrophils 50.6 % (42.2-75.2); Absolute Basophils 0.1 10^3/uL (0-0.2); Absolute Eosinophils 0.4 10^3/uL (0-0.7); Absolute Immature Granulocytes 0.1 10^3/uL (0-0.05); Absolute Lymphocytes 2.1 10^3/uL (1.2-3.4); Absolute Monocytes 0.7 10^3/uL (0.1-0.6); Absolute Neutrophils 3.4 10^3/uL (1.4-6.5); Hematocrit 33.6 % (39.0-52.0); Hemoglobin 11.5 g/dL (13.0-18.0); Mean Corp Hgb Conc. 34.2 g/dL (33.0-37.0); Mean Corpuscular Hgb 28.9 pg (27.0-31.0); Mean Corpuscular Volume 84.4 fL (80.0-94.0); Mean Platelet Volume 9.8 fL (7.4-10.4); Nucleated Red Blood Cells % 0 % (-); Platelet Count 255 10^3/uL (130-400); Red Blood Cell Count 3.98 10^6/uL (4.70-6.10); White Blood Cell Count 6.7 10^3/uL (4.8-10.8)
[2024-01-22 07:06] LABS: ALT (SGPT) 117 U/L (0-50); AST (SGOT) 38 U/L (17-59); Albumin 3.4 g/dl (3.5-5.0); Alkaline Phosphatase 167 U/L (38-126); Blood Urea Nitrogen 19 mg/dl (9-20); Calcium 9.7 mg/dl (8.4-10.2); Carbon Dioxide 22 mmol/L (22-30); Chloride 107 mmol/L (98-107); Estimated Creatinine Clearance 44 ml/min; Glucose 173 mg/dl (70-99); Potassium 4.2 mmol/L (3.5-5.1); Sodium 135 mmol/L (135-145); Total Bilirubin 0.6 mg/dl (0.2-1.3); Total Protein 6.1 g/dl (6.3-8.2); eGFR > 60.00
[2024-01-22 08:00] VITALS: BP 162/56
[2024-01-22] MEDS: REGLAN 5 MG IV (08:48)
[2024-01-22 08:54] LABS: Glucose - Point of Care 174 mg/dl (70-99)
[2024-01-22] MEDS: NOVOLOG FLEXPEN-LOW RESISTANCE 1 UNITS SC (08:55)
[2024-01-22] MEDS: DEPAKOTE (12 HR RELEASE) 125 MG PO ×2 (10:14→20:30)
[2024-01-22] MEDS: IMDUR (EXTENDED RELEASE) 60 MG PO (10:15)
--- NOTE | 2024-01-22 10:15 | CM ---
Addendum entered by Chelo Milligan RN 01/22/24 14:49:
Call report to: [phone]
Fax report to; [phone]
Medical necessity and transport forms on chart.
Original Note:
Reviewed the chart notes. CM continues to be available to patient/family and is monitoring medical plan for needs at discharge.
Plan: Discharge back to [facility] when medically stable.
[2024-01-22] MEDS: PROTONIX PO (10:26)
[2024-01-22] MEDS: COLACE PO (10:26)
[2024-01-22] MEDS: MIRALAX 17 GRAMS PO ×2 (10:37→20:30)
[2024-01-22] MEDS: LOPRESSOR 25 MG PO ×2 (10:37→20:30)
[2024-01-22 11:42] LABS: Glucose - Point of Care 270 mg/dl (70-99)
[2024-01-22] MEDS: NOVOLOG FLEXPEN-LOW RESISTANCE 3 UNITS SC (12:27)
[2024-01-22 13:31] VITALS: BP 162/62; BP_SYST 45
--- NOTE | 2024-01-22 14:08 | W.PN.HOSP.TC ---
Today's Communication/Plan
-
for Liver biopsy today
dischargable to SD after
Assessment / Plan
Assessment / Plan
MRI abd
Limited by respiratory motion degradation.
Large lobular 9.8 x 7.3 x 6.9 cm mass in the left lobe of liver, as described.
Signal and enhancement characteristics are not specific for any one definitive diagnosis. This does not represent an hemangioma. Does not have typical imaging findings for adenoma, or hepatocellular carcinoma; there does not appear to be underlying
chronic liver disease. Possibly focal nodular hyperplasia, though not typical. In addition, relative short-term interval development is somewhat concerning. A solitary metastatic lesion is felt to be unlikely given the suggestion of low-level uptake
of Eovist in the hepatocyte phase.
Ultimately, biopsy would be recommended.
Cholelithiasis. No bile duct dilatation.
Mild medial portacaval adenopathy measuring 11 cm.

1. Liver mass
Elevated liver enzymes
Abdominal pain - better
-CT without contrast showing new large liver mass, heavy stool burden, distended stomach with food material
-MRI abdomen pelvis report as above
-AFP WNL. No history of hepatitis infection.
-F/u LFT level
-Discussed with IRAD and possible biopsy today
2. Sepsis
Ecoli bacteremia
Aerococcus UTI
History of Pseudomonas/E. coli UTI
-Source of gram-negative bacteremia possible urine tract infection versus intra-abdominal
-Blood culture both sets growing Ecoli - partially drug resistant
-Urine culture growing, Aerococcus
-repeat blood culture neg.
-on unasyn at this point, will be discharged on oral abx
3. Acute toxic metabolic encephalopathy - improved
-did not allow ABG draw.
-Hold Risperdal/bupropion. Continue Depakote, valproic acid level WNL.
-CT head w/o contrast neg.
-COVID neg.
4. Dementia w behavioral issues
-Patient sedated with bupropion/Risperdal at admission, currently on hold and mentation remains pleasant.
-Continue Depakote for now.
5. CKD IIIA
- Cr is close to baseline, continue monitor
6. History of Perforated diverticulitis s/p Diallo's [place] [address] Salamanca
-evaluated by CRS and functioning stomy
-wafer/dressing was coming off, wound/rf microwave engineer placed new dressing .
Coronary disease s/p bypass
Essential hypertension
Insulin-dependent erythematous
Hyperlipidemia
Benign prostatic hyperplasia
Chronic Obstructive Pulmonary Disease
DVT PPX - Lovenox sq
Code status - DNR
Anticipated Discharge: Within 24 hours
Subjective/Interval History
-
Date of Service: January 22, 2024
no reported problems overnight
Objective Data
-
Labs:
Laboratory Results
01/22/24
05:36
WBC 6.7
Hgb 11.5 L
Hct 33.6 L
Plt Count 255
Sodium 135
Potassium 4.2
Chloride 107
Carbon Dioxide 22
BUN 19
Creatinine 1.2
Glucose 173 H
Calcium 9.7
Total Bilirubin 0.6
AST 38
ALT 117 H
Alkaline Phosphatase 167 H
Vital Signs:
Vital Signs
Temp Pulse Resp BP Pulse Ox
98.1 F 45 16 162/62 96
01/22/24 13:31 01/22/24 13:31 01/22/24 13:31 01/22/24 13:31 01/22/24 13:31
I&O
01/21/24 01/22/24 01/23/24
06:59 06:59 06:59
Intake Total 780 / 780 955 / 955
Output Total 1075 / 1075 920 / 920 150 / 150
Balance -295 / -295 35 / 35 -150 / -150
Review of Systems
-
Unable to obtain full review of systems at this time due to: Acuity
Physical Exam
-
General: No Apparent Distress
HEENT: Negative Oxygen
Respiratory: Clear to Auscultation
Cardiac: Regular Rhythm and S1/S2; Negative Murmur, Rub or Gallop
GI: Soft, Nontender and Ostomy (have abd binder in place )
Musculoskeletal: No Edema
Skin: Negative Rash
Neuro: Awake, Alert and No Motor Deficits
[2024-01-22 14:27] VITALS: BP 125/48
[2024-01-22 15:12] VITALS: BP 134/50
--- NOTE | 2024-01-22 15:32 | W.PN.GI.CBS2 ---
Addendum entered and electronically signed by Cris Casey MD 01/22/24 18:09:
I saw and examined the patient.
The BOWLING ALLEY MECHANIC or PA's note was reviewed and I agree with the note.
Comment: 83-year-old male past medical history of dementia presenting with abdominal pain, fever, elevated LFTs with E. coli bacteremia thought likely to be a passed stone. Positive UTI culture although different species and not E. coli. Found
incidentally to have a liver lesion. This was reviewed with Dr. Arroyo and plan was to do a biopsy. However, today the biopsy was unable to be performed as patient would not lie still to safely perform the biopsy. I reached out to his family member
Shady Flowers who is his nephew regarding attempting to repeat the liver biopsy with general sedation. On discussion with the nephew, patient does not want aggressive measures done. He would only want a liver biopsy if it would help him with his
pain. I believe the liver lesion was an incidental finding and not related to his pain. We discussed the possibility this could be a malignancy which the nephew acknowledged but he states that his uncle's quality of life is very poor and he does
not want aggressive measures at this time. Therefore, if the patient is pain-free tomorrow, would recommend discharge with no further evaluation of the liver lesion with family understanding the risk that this could represent a malignancy. I
discussed with hospitalist.
Original Note:
Today's Communication / Plan
-
Trend LFTs
Assessment / Plan
-
1. Abdominal pain/fever/elevated LFT: With E. coli bacteremia, markedly elevated LFTs on admission, now all much improved, afebrile, exam benign. While he does have a UTI culture is without E. coli, and given constellation of symptoms and location
of pain more likely passed CBD stone with transient cholangitis. He is tolerating diet, afebrile, LFTs improving, continue to trend labs.
2. Liver lesion: Solid, atypical for FNH or adenoma on MRI, less likely to be large solitary metastatic disease though still possible, alpha-fetoprotein normal, no suggestion of underlying cirrhosis. CEA normal, CA 19-9 minimally elevated. Case
previously with Dr. Arroyo, for biopsy, though waiting on aspirin washout per IR, probably Thursday.
Subjective
Subjective
Date of Service: January 22, 2024
Patient sleeping and is without any complaints at this time. Awaiting ASA washout for liver bx. Patient afebrile with stable vital signs. ALT and ALk Phos trending down.
Objective
Data Reviewed
Laboratory Data:
Laboratory Results
01/22/24 05:36
01/22/24 05:36
Laboratory Results
PT 13.3 Sec (11.4-14.6) 01/21/24 05:12
INR 1.01 01/21/24 05:12
Total Bilirubin 0.6 mg/dl (0.2-1.3) 01/22/24 05:36
AST 38 U/L (17-59) 01/22/24 05:36
ALT 117 U/L (0-50) H 01/22/24 05:36
Alkaline Phosphatase 167 U/L (38-126) H 01/22/24 05:36
Lipase 29 U/L (23-300) 01/16/24 23:16
Vital Signs and I&O:
Vital Signs
Temp Pulse Resp BP Pulse Ox
98.1 F 54 16 125/48 96
01/22/24 13:31 01/22/24 14:27 01/22/24 14:27 01/22/24 14:27 01/22/24 13:31
I&O
01/21/24 01/22/24 01/23/24
06:59 06:59 06:59
Intake Total 780 / 780 955 / 955 125 / 125
Output Total 1075 / 1075 920 / 920 150 / 150
Balance -295 / -295 35 / 35 -25 / -25
Physical Exam
Physical Exam
Cardiology: Normal Sinus Rhythm
Pulmonary: Clear
GI: Soft, Non Distended, Non Tender, Normal Bowel Sounds and Other (abdominal binder in place)
Extremities: No Edema
--- NOTE | 2024-01-22 16:19 | W.PN.UPDATE ---
Update Note
Progress Note Update
- Attempted US guided biopsy of indeterminate hepatic mass earlier this afternoon. Lesion located with segment 4A, high within the liver. Splaying of the surrounding hepatic vessels.
- Prior to starting procedure, patient was unable to lay still and started complaining of discomfort. Because of worries of further/worsening agitation and inability to lay still, decided to abort the procedure.
- We can re-attempt at a later date if needed, possibly with anesthesia assistance. This can be done as an outpatient.
[2024-01-22 16:51] LABS: Glucose - Point of Care 246 mg/dl (70-99)
--- NOTE | 2024-01-22 18:16 | PTCARENOTE ---
Patient received back from IR @ 5858. Drowsy, resting w/ eyes closed, respirations even unlabored, VSS. Arouses to tactile stim, mostly moans. Per IR JONATHON Solis, patient not directable, unable to safely stay still, procedure cancelled. Dr. Maldonado
aware.
[2024-01-22] MEDS: NOVOLOG FLEXPEN-LOW RESISTANCE 2 UNITS SC (18:21)
[2024-01-22] MEDS: IMDUR (EXTENDED RELEASE) PO (18:21)
[2024-01-22] MEDS: NORVASC PO (18:21)
[2024-01-22] MEDS: LOVENOX 30 MG SC (18:21)
[2024-01-22 19:30] VITALS: BP 160/44
[2024-01-22] MEDS: COLACE 100 MG PO (20:30)
[2024-01-22 22:07] LABS: Glucose - Point of Care 149 mg/dl (70-99)
[2024-01-22] MEDS: FLOMAX 0.400000000000000022 MG PO (22:21)
[2024-01-22 23:58] VITALS: BP 160/66
[2024-01-23] MEDS: UNASYN IV ×5 (01:00→17:38)
[2024-01-23 03:28] VITALS: BP 163/88
[2024-01-23] MEDS: ATIVAN 0.25 MG IV (03:59)
[2024-01-23] MEDS: NSS (PRESERVATIVE FREE) 0.125 ML IV (03:59)
[2024-01-23 04:58] LABS: % Basophils 1.3 % (0-2); % Eosinophils 5.1 % (0-6); % Immature Granulocytes 3.2 % (0-0.5); % Lymphocytes 30.2 % (20.5-51.1); % Monocytes 8.7 % (1.7-9.3); % Neutrophils 51.5 % (42.2-75.2); Absolute Basophils 0.1 10^3/uL (0-0.2); Absolute Eosinophils 0.4 10^3/uL (0-0.7); Absolute Immature Granulocytes 0.2 10^3/uL (0-0.05); Absolute Lymphocytes 2.1 10^3/uL (1.2-3.4); Absolute Monocytes 0.6 10^3/uL (0.1-0.6); Absolute Neutrophils 3.6 10^3/uL (1.4-6.5); Hematocrit 33.3 % (39.0-52.0); Hemoglobin 11.1 g/dL (13.0-18.0); Mean Corp Hgb Conc. 33.3 g/dL (33.0-37.0); Mean Corpuscular Hgb 28.9 pg (27.0-31.0); Mean Corpuscular Volume 86.7 fL (80.0-94.0); Mean Platelet Volume 9.9 fL (7.4-10.4); Nucleated Red Blood Cells % 0 % (-); Platelet Count 266 10^3/uL (130-400); Red Blood Cell Count 3.84 10^6/uL (4.70-6.10); Red Cell Dist. Width 12.1 % (11.5-14.5); White Blood Cell Count 6.9 10^3/uL (4.8-10.8)
[2024-01-23 05:22] LABS: ALT (SGPT) 99 U/L (0-50); AST (SGOT) 29 U/L (17-59); Albumin 3.3 g/dl (3.5-5.0); Alkaline Phosphatase 153 U/L (38-126); Blood Urea Nitrogen 22 mg/dl (9-20); Calcium 9.3 mg/dl (8.4-10.2); Carbon Dioxide 22 mmol/L (22-30); Chloride 107 mmol/L (98-107); Direct Bilirubin 0.4 mg/dl (0.0-0.4); Estimated Creatinine Clearance 35 ml/min; Glucose 137 mg/dl (70-99); Potassium 4.2 mmol/L (3.5-5.1); Sodium 138 mmol/L (135-145); Total Bilirubin 0.5 mg/dl (0.2-1.3); eGFR 46.48
[2024-01-23 07:00] VITALS: BP 135/55
--- NOTE | 2024-01-23 07:00 | W.PN.UPDATE ---
Update Note
Progress Note Update
Patient s/p fall per nursing. Patient on tele sitter. Per nursing did not hit head, no LOC. BL elbow skin tear noted, uncertain if from fall or moving around in bed. No other visible injuries noted at this time. Patient appears in no acute distress
at this time. Continue safety/fall precaution.
--- NOTE | 2024-01-23 07:07 | FALL ---
Description of Fall:
Pt bed at lowest position. Pt rolled OOB.
Injuries Noted:
Right elbow skin tear.
Action Taken:
Bed alarm and Medsitter already in place. Pt needs a 1:1.
Name of Provider Notified: Mireille Ramirez NP
--- NOTE | 2024-01-23 09:12 | W.PN.GI.CBS2 ---
Today's Communication / Plan
-
discharge
Assessment / Plan
-
83-year-old male past medical history of dementia presenting with abdominal pain, fever, elevated LFTs with E. coli bacteremia thought likely to be a passed stone. Positive UTI culture although different species and not E. coli. Found incidentally
to have a liver lesion. This was reviewed with Dr. Arroyo and plan was to do a biopsy. However, today the biopsy was unable to be performed as patient would not lie still to safely perform the biopsy. I reached out to his family member Shady
[facility] who is his nephew regarding attempting to repeat the liver biopsy with general sedation. On discussion with the nephew, patient does not want aggressive measures done. He would only want a liver biopsy if it would help him with his pain.
I believe the liver lesion was an incidental finding and not related to his pain. We discussed the possibility this could be a malignancy which the nephew acknowledged but he states that his uncle's quality of life is very poor and he does not want
aggressive measures at this time. Plan for no further evaluation of the liver lesion with family understanding the risk that this could represent a malignancy. No pain today - ok GI POV for d/c. Will sign off. I discussed with hospitalist.
Subjective
Subjective
Date of Service: January 23, 2024
no abd pain still sleeping
Objective
Data Reviewed
Laboratory Data:
Laboratory Results
01/23/24 04:32
01/23/24 04:32
Laboratory Results
PT 13.3 Sec (11.4-14.6) 01/21/24 05:12
INR 1.01 01/21/24 05:12
Total Bilirubin 0.5 mg/dl (0.2-1.3) 01/23/24 04:32
AST 29 U/L (17-59) 01/23/24 04:32
ALT 99 U/L (0-50) H 01/23/24 04:32
Alkaline Phosphatase 153 U/L (38-126) H 01/23/24 04:32
Lipase 29 U/L (23-300) 01/16/24 23:16
Vital Signs and I&O:
Vital Signs
Temp Pulse Resp BP Pulse Ox
97.0 F 48 18 135/55 100
01/23/24 07:00 01/23/24 07:00 01/23/24 07:00 01/23/24 07:00 01/23/24 07:00
I&O
01/22/24 01/23/24 01/24/24
06:59 06:59 06:59
Intake Total 955 / 955 1345 / 1345
Output Total 920 / 920 850 / 850
Balance 35 / 35 495 / 495
Physical Exam
Physical Exam
HEENT: Other (nad)
[2024-01-23] MEDS: NOVOLOG FLEXPEN-LOW RESISTANCE SC ×2 (10:50→17:33)
[2024-01-23] MEDS: COLACE PO (10:51)
[2024-01-23 10:56] LABS: Glucose - Point of Care 151 mg/dl (70-99)
--- NOTE | 2024-01-23 11:00 | CM ---
Addendum entered by Abdulkadir Baez 01/23/24 14:48:
Pt became agitated, difficult to manage. CM spoke to [facility] DON and she stated that this is not pt's baseline and they do not support pt being on Haldol.
Discharge will be cancelled due to inability to manage the pt at [facility].
Original Note:
CM following re: discharge planning.
Reviewed pt's chart, met with pt and spoke to pt's nephew Shady
Discharge order noted. Pt unable to understand Medicare Rights due to Dementia. IMM reviewed with pt's nephew Shady.
Pt is a LTC resident at [facility]. A referral to [facility] made, spoke to liaison Eboni, pt is accepted for admission today.
scheduled ambulance with 4:00 p.m order picker time. [facility] completed and left with .
[facility] nursing report: [phone]
Fax report to: [phone]
D/C plan: return back to [facility] for a termite technician care.
[2024-01-23] MEDS: PROTONIX 40 MG PO (11:08)
[2024-01-23] MEDS: IMDUR (EXTENDED RELEASE) 60 MG PO (11:08)
[2024-01-23] MEDS: MIRALAX 17 GRAMS PO ×2 (11:08→22:17)
[2024-01-23] MEDS: LOPRESSOR 25 MG PO ×2 (11:08→22:14)
[2024-01-23] MEDS: DEPAKOTE (12 HR RELEASE) 125 MG PO ×2 (11:09→22:15)
--- NOTE | 2024-01-23 12:07 | W.PN.HOSP.TC ---
Today's Communication/Plan
-
d/c NH
Assessment / Plan
Assessment / Plan
MRI abd
Limited by respiratory motion degradation.
Large lobular 9.8 x 7.3 x 6.9 cm mass in the left lobe of liver, as described.
Signal and enhancement characteristics are not specific for any one definitive diagnosis. This does not represent an hemangioma. Does not have typical imaging findings for adenoma, or hepatocellular carcinoma; there does not appear to be underlying
chronic liver disease. Possibly focal nodular hyperplasia, though not typical. In addition, relative short-term interval development is somewhat concerning. A solitary metastatic lesion is felt to be unlikely given the suggestion of low-level uptake
of Eovist in the hepatocyte phase.
Ultimately, biopsy would be recommended.
Cholelithiasis. No bile duct dilatation.
Mild medial portacaval adenopathy measuring 11 cm.

1. Liver mass
Elevated liver enzymes
Abdominal pain - better
-CT without contrast showing new large liver mass, heavy stool burden, distended stomach with food material
-MRI abdomen pelvis report as above
-AFP WNL. No history of hepatitis infection.
-F/u LFT level
-IRAD could not do biopsy as patient not co-operating and difficult location.
-GI discussed with family and family declined any aggressive intervention, pain control remains priority
2. Sepsis
Ecoli bacteremia
Aerococcus UTI
History of Pseudomonas/E. coli UTI
-Source of gram-negative bacteremia possible urine tract infection versus intra-abdominal
-Blood culture both sets growing Ecoli - partially drug resistant
-Urine culture growing, Aerococcus
-repeat blood culture neg.
-discharging on 10 more days of omnicef.
3. Acute toxic metabolic encephalopathy - improved
-Hold Risperdal/bupropion. Continue Depakote, valproic acid level WNL.
-CT head w/o contrast neg.
-COVID neg.
4. Dementia w behavioral issues
-Patient sedated with bupropion/Risperdal at admission, currently on hold and mentation remains pleasant.
-Continue Depakote for now.
5. CKD IIIA
- Cr is close to baseline, continue monitor
6. History of Perforated diverticulitis s/p Diallo's [place] [address] Salamanca
-evaluated by CRS and functioning stomy
-wafer/dressing was coming off, wound/back hoe operator placed new dressing .
7. Mechanical fall
- patient got over side rail - remote sitter in place no reported head injury
- no problem with pain
Coronary disease s/p bypass
Essential hypertension
Insulin-dependent erythematous
Hyperlipidemia
Benign prostatic hyperplasia
Chronic Obstructive Pulmonary Disease
DVT PPX - Lovenox sq
Code status - DNR
More than 30 minutes spent in discharge including
Final examination of the patient
Summarizing hospital stay
Instructions for continuing care to all relevant caregivers
Preparation of discharge records, prescriptions, and referral forms
Total time spent (in minutes): 38 mins
Anticipated Discharge: Today
Subjective/Interval History
-
Date of Service: January 23, 2024
patient somnolent
took ostomy bag out again today
no pain
Objective Data
-
Labs:
Laboratory Results
01/23/24
04:32
WBC 6.9
Hgb 11.1 L
Hct 33.3 L
Plt Count 266
Sodium 138
Potassium 4.2
Chloride 107
Carbon Dioxide 22
BUN 22 H
Creatinine 1.5 H
Glucose 137 H
Calcium 9.3
Total Bilirubin 0.5
AST 29
ALT 99 H
Alkaline Phosphatase 153 H
Vital Signs:
Vital Signs
Temp Pulse Resp BP Pulse Ox
97.0 F 48 18 135/55 100
01/23/24 07:00 01/23/24 07:00 01/23/24 07:00 01/23/24 07:00 01/23/24 07:00
I&O
01/22/24 01/23/24 01/24/24
06:59 06:59 06:59
Intake Total 955 / 955 1345 / 1345
Output Total 920 / 920 850 / 850
Balance 35 / 35 495 / 495
Review of Systems
-
Unable to obtain full review of systems at this time due to: Acuity
Physical Exam
-
General: No Apparent Distress
HEENT: Negative Oxygen
Respiratory: Clear to Auscultation
Cardiac: Regular Rhythm and S1/S2; Negative Murmur, Rub or Gallop
GI: Soft, Nontender and Ostomy (have abd binder in place )
Musculoskeletal: No Edema
Skin: Negative Rash
Neuro: Awake, Alert and No Motor Deficits
[2024-01-23] MEDS: NOVOLOG FLEXPEN-LOW RESISTANCE 1 UNITS SC (13:52)
[2024-01-23] MEDS: REGLAN 5 MG IV (13:53)
[2024-01-23] MEDS: HALDOL 1 MG IM (14:46)
[2024-01-23] MEDS: MORPHINE SULFATE 2 MG IV (15:27)
[2024-01-23] MEDS: FLUSH (NSS) 2 FLUSH IV (15:28)
--- NOTE | 2024-01-23 15:35 | W.PN.UPDATE ---
Update Note
Progress Note Update
Patient agitated and required code purple
Haldol IV given
IV morphine provided
Discharge held for tonight
[2024-01-23] MEDS: IMDUR (EXTENDED RELEASE) PO (17:33)
[2024-01-23] MEDS: LOVENOX SC (17:34)
[2024-01-23] MEDS: NORVASC PO (17:35)
--- NOTE | 2024-01-23 19:24 | PTCARENOTE ---
pt being combative while requiring xray nurse in with pt to help calm down, while holding him he started biting and kicking with his legs, pulled his colostomy bag off, made aware and a dose of IM Haldol was given, pt calmer after episode and
sleeping after medication administration.
[2024-01-23 21:49] LABS: Glucose - Point of Care 145 mg/dl (70-99)
[2024-01-23] MEDS: FLOMAX 0.400000000000000022 MG PO (22:14)
[2024-01-23] MEDS: COLACE 100 MG PO (22:15)
[2024-01-23] MEDS: MELATONIN 5 MG PO (22:15)
[2024-01-23] MEDS: RISPERDAL PO (22:16)
[2024-01-23 23:19] VITALS: BP 114/45
[2024-01-24] MEDS: UNASYN IV ×3 (01:00→13:59)
--- NOTE | 2024-01-24 01:15 | PTCARENOTE ---
Pt's nephew returned supervisor paper testing's phone call and spoke to this nurse stating 'you have permission to draw any needed labs on the patient'.
[2024-01-24 06:48] LABS: % Basophils 0.9 % (0-2); % Eosinophils 3.9 % (0-6); % Immature Granulocytes 2.4 % (0-0.5); % Lymphocytes 28.8 % (20.5-51.1); % Monocytes 8.3 % (1.7-9.3); % Neutrophils 55.7 % (42.2-75.2); Absolute Basophils 0.1 10^3/uL (0-0.2); Absolute Eosinophils 0.3 10^3/uL (0-0.7); Absolute Immature Granulocytes 0.2 10^3/uL (0-0.05); Absolute Lymphocytes 2.3 10^3/uL (1.2-3.4); Absolute Monocytes 0.7 10^3/uL (0.1-0.6); Absolute Neutrophils 4.5 10^3/uL (1.4-6.5); Mean Corp Hgb Conc. 34.4 g/dL (33.0-37.0); Mean Corpuscular Hgb 28.8 pg (27.0-31.0); Mean Corpuscular Volume 83.8 fL (80.0-94.0); Mean Platelet Volume 10.1 fL (7.4-10.4); Nucleated Red Blood Cells % 0 % (-); Platelet Count 289 10^3/uL (130-400); Red Blood Cell Count 3.82 10^6/uL (4.70-6.10); Red Cell Dist. Width 12.1 % (11.5-14.5)
[2024-01-24 07:40] VITALS: BP 162/55
[2024-01-24 07:55] LABS: ALT (SGPT) 76 U/L (0-50); AST (SGOT) 27 U/L (17-59); Albumin 3.2 g/dl (3.5-5.0); Alkaline Phosphatase 131 U/L (38-126); Blood Urea Nitrogen 23 mg/dl (9-20); Calcium 9.2 mg/dl (8.4-10.2); Carbon Dioxide 20 mmol/L (22-30); Chloride 111 mmol/L (98-107); Estimated Creatinine Clearance 33 ml/min; Glucose 123 mg/dl (70-99); Potassium 4.4 mmol/L (3.5-5.1); Sodium 137 mmol/L (135-145); Total Bilirubin 0.6 mg/dl (0.2-1.3); Total Protein 5.9 g/dl (6.3-8.2); eGFR 43.02
[2024-01-24 08:04] LABS: Glucose - Point of Care 161 mg/dl (70-99)
[2024-01-24] MEDS: MIRALAX 17 GRAMS PO (08:43)
[2024-01-24] MEDS: NOVOLOG FLEXPEN-LOW RESISTANCE 1 UNITS SC (08:43)
[2024-01-24] MEDS: RISPERDAL 0.25 MG PO (08:44)
[2024-01-24] MEDS: IMDUR (EXTENDED RELEASE) 60 MG PO ×2 (08:44→15:18)
[2024-01-24] MEDS: DEPAKOTE (12 HR RELEASE) 125 MG PO (08:44)
[2024-01-24] MEDS: LOPRESSOR PO (08:44)
[2024-01-24] MEDS: PROTONIX 40 MG PO (08:45)
[2024-01-24] MEDS: COLACE 100 MG PO (08:45)
--- NOTE | 2024-01-24 10:04 | PTCARENOTE ---
01/23/2024 Restrains removed at 1700 as per doctor orders on 01/23/2024. Pt more calm and not verbally or physically aggressive towards staff. Had his lunch and dinner, able to feed himself. Medsitter and bed alarm still in place.
--- NOTE | 2024-01-24 10:36 | CM ---
CM following re: discharge planning.
Reviewed pt's chart, met with pt and spoke to pt's nephew Shady
Discharge order noted.
Pt is a LTC resident at [facility]. A referral to [facility] made, spoke to liaison Eboni, pt is accepted for admission today.
IMM reviewed with pt's nephew yesterday.
scheduled ambulance with 4:30 p.m pick remover time. [facility] completed and left with .
[facility] nursing report: [phone]
Fax report to: [phone]
D/C plan: return back to [facility] for a fci care.
--- NOTE | 2024-01-24 12:00 | W.PN.HOSP.TC ---
Today's Communication/Plan
-
d/c NH
Assessment / Plan
Assessment / Plan
MRI abd
Limited by respiratory motion degradation.
Large lobular 9.8 x 7.3 x 6.9 cm mass in the left lobe of liver, as described.
Signal and enhancement characteristics are not specific for any one definitive diagnosis. This does not represent an hemangioma. Does not have typical imaging findings for adenoma, or hepatocellular carcinoma; there does not appear to be underlying
chronic liver disease. Possibly focal nodular hyperplasia, though not typical. In addition, relative short-term interval development is somewhat concerning. A solitary metastatic lesion is felt to be unlikely given the suggestion of low-level uptake
of Eovist in the hepatocyte phase.
Ultimately, biopsy would be recommended.
Cholelithiasis. No bile duct dilatation.
Mild medial portacaval adenopathy measuring 11 cm.

1. Liver mass
Elevated liver enzymes
Abdominal pain - better
-CT without contrast showing new large liver mass, heavy stool burden, distended stomach with food material
-MRI abdomen pelvis report as above
-AFP WNL. No history of hepatitis infection.
-F/u LFT level
-IRAD could not do biopsy as patient not co-operating and difficult location.
-GI discussed with family and family declined any aggressive intervention, pain control remains priority
2. Sepsis
Ecoli bacteremia
Aerococcus UTI
History of Pseudomonas/E. coli UTI
-Source of gram-negative bacteremia possible urine tract infection versus intra-abdominal
-Blood culture both sets growing Ecoli - partially drug resistant
-Urine culture growing, Aerococcus
-repeat blood culture neg.
-discharging on 10 more days of omnicef.
3. Acute toxic metabolic encephalopathy - improved
-Hold Risperdal/bupropion. Continue Depakote, valproic acid level WNL.
-CT head w/o contrast neg.
-COVID neg.
4. Dementia w behavioral issues
-Patient sedated with bupropion/Risperdal at admission, currently on hold and mentation remains pleasant.
-Continue Depakote for now.
5. CKD IIIA
- Cr is close to baseline, continue monitor
6. History of Perforated diverticulitis s/p Diallo's [place] [address] Salamanca
-evaluated by CRS and functioning stomy
-wafer/dressing was coming off, wound/trimmer meat placed new dressing .
7. Mechanical fall
- patient got over side rail - remote sitter in place no reported head injury
- no problem with pain
Coronary disease s/p bypass
Essential hypertension
Insulin-dependent erythematous
Hyperlipidemia
Benign prostatic hyperplasia
Chronic Obstructive Pulmonary Disease
DVT PPX - Lovenox sq
Code status - DNR
Patient discharge was held yesterday due to agitation appreciated. After resumption of Risperdal patient back to normal self. Having breakfast and pleasant in morning. No reported behavioral issues in the night either.
Safe to discharge back to [place]
Anticipated Discharge: Today
Subjective/Interval History
-
Date of Service: January 24, 2024
Patient comfortable
No reported behavioral problems overnight
Objective Data
-
Labs:
Laboratory Results
01/24/24
05:51
WBC 8.0
Hgb 11.0 L
Hct 32.0 L
Plt Count 289
Sodium 137
Potassium 4.4
Chloride 111 H
Carbon Dioxide 20 L
BUN 23 H
Creatinine 1.6 H
Glucose 123 H
Calcium 9.2
Total Bilirubin 0.6
AST 27
ALT 76 H
Alkaline Phosphatase 131 H
Vital Signs:
Vital Signs
Temp Pulse Resp BP Pulse Ox
97.9 F 57 16 162/55 97
01/24/24 07:40 01/24/24 08:44 01/24/24 07:40 01/24/24 08:44 01/24/24 07:40
I&O
01/23/24 01/24/24 01/25/24
06:59 06:59 06:59
Intake Total 1345 / 1345 540 / 540
Output Total 850 / 850 200 / 200
Balance 495 / 495 340 / 340
Review of Systems
-
Unable to obtain full review of systems at this time due to: Dementia and Acuity
Physical Exam
-
General: No Apparent Distress
HEENT: Negative Oxygen
GI: Ostomy (have abd binder in place )
Musculoskeletal: No Edema
Skin: Negative Rash
Neuro: Awake, Alert and No Motor Deficits
Psych: Calm
[2024-01-24 13:01] LABS: Glucose - Point of Care 226 mg/dl (70-99)
[2024-01-24] MEDS: NOVOLOG FLEXPEN-LOW RESISTANCE 2 UNITS SC (13:59)
[2024-01-24 15:15] VITALS: BP 160/56
--- NOTE | 2024-01-24 16:00 | W.DCSUMMARY ---
Discharge Summary
Discharge Data
Date of Admission: 01/20/24
Date of Discharge: 01/24/24
-
Pending Results: No
Hospital Course
Discharging Physician : Dr Melo Maldonado
Disposition : To [facility]
Primary care physician : Dr Jairo Jade
Principal Discharge diagnosis :
Liver mass
Escherichia coli bacteremia
Aerococcus urinary tract infection
Sepsis
Elevated liver enzymes
Acute toxic metabolic encephalopathy
Chronic Discharge diagnosis :
Dementia with behavioral issues
Chronic kidney disease stage IIIa
History of perforated diverticulitis s/p Diallo's procedure
Mechanical fall
Coronary artery disease s/p bypass
Essential hypertension
Insulin-dependent diabetes mellitus
Hyperlipidemia
Benign prostatic hyperplasia
Chronic obstructive pulmonary disease
Hospital Course :
Patient is 83-year-old male with above-mentioned past medical history was [facility] after reported to having worsening abdominal pain and chest discomfort. Patient was also noted to be cold and clammy. Patient was not voicing
any complaints of the patient her dementia and history not completely reliable. CT abdomen pelvis was done which showed an incidental large lobular mass of approximately 10 x 7 x 7 cm in the left lobe of liver. Gastroenterology was involved in
care and follow-up MRI abdomen was done which was not able to differentiate mass any further. Interventional radiology was consulted and patient was attempted to have a liver biopsy although due to position and patient being not cooperative with
underlying dementia biopsy was not successful. A discussion was held with family member and family member declined any further aggressive intervention and pain control/comfort remained priority.
Patient also noted to having UTI with mild sepsis from that. Urine culture and blood culture was collected out of which blood culture later grew E. coli and urine culture growing Aerococcus organism. Based on susceptibility patient was called with
IV antibiotics and at discharge patient was transition to 10 days course of oral Omnicef therapy.
Patient also had significant encephalopathy and was quite somnolent for first few days of hospitalization. Patient home medication of Risperdal/bupropion was held. Patient also on Depakote as a mood stabilizer and level were checked and were
within normal limit. CT head was done which was negative for any acute issues. Patient was resumed back on Risperdal as was having agitation issues again.
Patient also had protruding stomy and colorectal surgery was involved in care. Stomy was deemed to be functioning without any acute issues . Patient continued to pull stilly bags of during his hospitalization and required to be placed on abdominal
binders at times.
Post medical stabilization patient discharged [facility] to [facility].
Important imaging findings :
None
Procedure findings :
None
Discharge Plan
-
Patient Disposition: Group Home/SNF
Discharge Diagnosis/Procedures: Ecoli bacteremia, Aeroccocus UTI. Sepsis. Liver mass
Condition: Fair
Diet: Regular
Activity: As tolerated
Driving Restrictions: No driving
Bathing Restrictions: Per facility protocol
Other Services: VN
Referrals:
Jairo Jade I., DO [Family Provider] - in one week
Additional Discharge Medication Instructions: Stop Risperidal
Prescriptions:
New
cefdinir 300 mg capsule
300 mg PO Q12H 10 Days Qty: 20 0RF
Rx Instructions:
LAST DOSE 01/30/24 EVENING
risperidone 0.25 mg Tablet
0.25 mg PO BID Qty: 60 0RF
Continued
nitroglycerin 0.4 MG tablet, sublingual
0.4 mg sublingual Q5MX3 PRN (Reason: chest pain)
cilostazol 100 MG tablet
100 mg PO BID
sennosides [senna] 1 TABLET tablet
2 tab PO HS
acetaminophen 325 MG tablet
650 mg PO Q4H PRN (Reason: mild pain/temp>100F)
simvastatin 40 MG tablet
40 mg PO HS
amlodipine 10 MG tablet
10 mg PO QPM
pantoprazole 40 MG tablet,delayed release (DR/EC)
40 mg PO DAILY
isosorbide mononitrate 60 MG tablet extended release 24 hr
60 mg PO BID@0900,1600
divalproex 125 MG tablet,delayed release (DR/EC)
125 mg PO BID
insulin lispro [Humalog KwikPen Insulin] 100 UNIT/ML insulin pen
0 - 14 units SC QID
Rx Instructions:
sliding scale: 70-149= 1 unit, 150-199= 2 units, 200-249= 4 units, 250-299= 7 units, 300-349= 10 units, 350-399= 12 units, 400-499= 14 units, over [address]
aspirin 81 MG tablet,delayed release (DR/EC)
81 mg PO DAILY
tamsulosin 0.4 MG capsule
0.4 mg PO HS
metoprolol tartrate 25 MG tablet
25 mg PO BID
Rx Instructions:
hold for SBP <100 or HR <60bpm
bupropion HCl 100 mg tablet
100 mg PO BID
Discontinued
risperidone 0.25 mg tablet
0.25 mg PO BID
cephalexin 500 mg capsule
500 mg PO Q8H Qty: 14 0RF
Discharge Orders:
Discharge Patient (As Directed); Ordered 01/24/24
Ordered By: Melo Maldonado
Discharge Date and Time
Print Language: ICELANDIC
--- NOTE | 2024-01-24 16:48 | PTCARENOTE ---
pt more collaborative with staff today, ate his breakfast and part of his lunch, took meds without issues.
== END 2024-01-24 16:53 | DRG 871 ==
LOC: 2 NORTH 17:56
PROVIDERS: Hospitalist; Internal Medicine Gastroenterology; Nurse Practitioner Family; Radiology Vascular & Interventional Radiology; Registered Nurse; ADMITTING PHYSICIAN Internal Medicine; ATTENDING PHYSICIAN Hospitalist; CONSULT PHYSICIAN Internal Medicine Gastroenterology; CONSULT PHYSICIAN Surgery; EMERGENCY PHYSICIAN Emergency Medicine; FAMILY PHYSICIAN Internal Medicine
DX: A41.51 Sepsis due to Escherichia coli [E. coli] (principal); G92.8 Other toxic encephalopathy; I13.0 Hypertensive heart and chronic kidney disease with heart failure and stage 1 through stage 4 chronic kidney disease, or unspecified chronic kidney disease; F03.918 Unspecified dementia, unspecified severity, with other behavioral disturbance; N39.0 Urinary tract infection, site not specified; Z16.30 Resistance to unspecified antimicrobial drugs; I25.119 Atherosclerotic heart disease of native coronary artery with unspecified angina pectoris; I50.9 Heart failure, unspecified; J43.9 Emphysema, unspecified; R16.0 Hepatomegaly, not elsewhere classified; E78.00 Pure hypercholesterolemia, unspecified; F32.A Depression, unspecified; K80.20 Calculus of gallbladder without cholecystitis without obstruction; K21.9 Gastro-esophageal reflux disease without esophagitis; E11.51 Type 2 diabetes mellitus with diabetic peripheral angiopathy without gangrene; F17.200 Nicotine dependence, unspecified, uncomplicated; N18.31 Chronic kidney disease, stage 3a; E11.22 Type 2 diabetes mellitus with diabetic chronic kidney disease; N40.0 Benign prostatic hyperplasia without lower urinary tract symptoms; K59.00 Constipation, unspecified; W06.XXXA Fall from bed, initial encounter; Z91.81 History of falling; Y93.89 Activity, other specified; Y92.230 Patient room in hospital as the place of occurrence of the external cause; Z66 Do not resuscitate; I25.2 Old myocardial infarction; Z87.440 Personal history of urinary (tract) infections; Z93.3 Colostomy status; Z95.1 Presence of aortocoronary bypass graft; Z90.49 Acquired absence of other specified parts of digestive tract; Z79.82 Long term (current) use of aspirin; Z79.4 Long term (current) use of insulin
CPT/HCPCS: 70450; 71046; 73501; 74022; 74176; 74183; 80048; 80053; 80076; 80164; 81003; 81015; 82105; 82248; 82378; 82607; 82728; 82746; 82784; 82962; 83516; 83540; 83550; 83605; 83690; 84484; 85025; 85610; 86231; 86301; 87040; 87070; 87077; 87086; 87149; 87186; 87205; 93005; 96361; 96374; 99285; A9581

== ENCOUNTER 2024-01-27 01:30 | Emergency (ER) | payer MEDICARE, OTHER, SELFPAY ==
[2024-01-27 01:32] VITALS: BP 141/59
--- NOTE | 2024-01-27 01:58 | ED.GENMED ---
History of Present Illness
<HUBERT Gramajo - Last Filed: 01/27/24 06:13>
General
Chief Complaint: Fall
Time Seen by Provider: 01/27/24 01:54
Travel History
Have you had any contact with someone who has COVID-19?: Unable to Answer
Do you have any symptoms of coronavirus? Fever > 100 degrees, chills, cough, shortness of breath, sore throat, loss of taste or smell, muscle aches, or headache?: Unable to Answer
History of Present Illness
History of Present Illness:
This is an 83 yo male presenting via EMS for an unwitnessed fall reported by [place] Pichardo. At [facility], patient was complaining of R knee pain, which he states has since resolved. Patient denies chest pain, SOB, and has no acute complaints
at this time.
Patient was discharged from medicine 3 days ago after being admitted for abdominal symptoms. He denies vomiting and abdominal pain.
Past History
<HUBERT Gramajo - Last Filed: 01/27/24 06:13>
Past History
ED Past Medical History: CAD, COPD, GERD, HTN, Hypercholesterolemia, IDDM (type 2), [place], Psychiatric (depression, dementia with behavioral disturbances) and Other (HLD, angina or pressue, circulation problems, CP, PVD, dementia slight, frequent MARQUES,
Colitis, UTI's)
ED Past Surgical History: Appendectomy, Bowel resection (Perforated diverticulitis requiring emergency rectosigmoid resection with formation of colostomy March 31, 2021), Cardiac (CABG 2003), Orthopedic and Other (Cataracts)
Social History
Tobacco: Smoker
Alcohol: None
Drug: None
Personal: Single
Living: [facility] ([place])
Employment: Retired
Family History
Family History: Other (Diabetes, hypertension, coronary disease)
Review of Systems
<HUBERT Gramajo - Last Filed: 01/27/24 06:13>
Review of Systems
Allergies reviewed?: Yes
Constitutional: Reports no symptoms
Respiratory: Reports no symptoms
Cardiac: Reports no symptoms
ABD/GI: Reports no symptoms
Musculoskeletal: Reports joint pain (R knee)
Phy Exam
<HUBERT Gramajo - Last Filed: 01/27/24 06:13>
General Physical Exam
General Presentation: well appearing
General age: appears stated age
General Skin: warm
General Habitus: elderly
General Mental: usual mental status
General Hydration: appears well hydrated
Cardiovascular Exam
Cardiovascular Exam: regular rate/rhythm
Pulmonary Exam
Pulmonary Exam: lungs clear
Neurological Exam
Neurological Exam: alert and no motor deficits
Course
<HUBERT Gramajo - Last Filed: 01/27/24 06:13>
Orders/Labs/Results
Orders:
Orders
01/27/24 02:15
CT Head W/o Iv Contrast Urgent
Comment:
Reason For Exam: unwitnessed fall
Knee, Right 4 or More Views [CR Knee- Right 4 Or More View*] Urgent
Comment:
Reason For Exam: unwitnessed fall with R knee pain
Vital Signs
Initial and Last Documented VS:
Initial Vital Signs
Temp Pulse Resp BP Pulse Ox
98.1 F 68 18 141/59 97
01/27/24 01:32 01/27/24 01:32 01/27/24 01:32 01/27/24 01:32 01/27/24 01:32
Last Documented Vital Signs
Temp Pulse Resp BP Pulse Ox
98.1 F 81 18 146/46 96
01/27/24 01:32 01/27/24 02:33 01/27/24 02:33 01/27/24 02:00 01/27/24 02:33
<Peter Ramirez DO - Last Filed: 01/27/24 03:12>
Orders/Labs/Results
Orders:
Orders
01/27/24 02:15
CT Head W/o Iv Contrast Urgent
Comment:
Reason For Exam: unwitnessed fall
Knee, Right 4 or More Views [CR Knee- Right 4 Or More View*] Urgent
Comment:
Reason For Exam: unwitnessed fall with R knee pain
Vital Signs
Initial and Last Documented VS:
Initial Vital Signs
Temp Pulse Resp BP Pulse Ox
98.1 F 68 18 141/59 97
01/27/24 01:32 01/27/24 01:32 01/27/24 01:32 01/27/24 01:32 01/27/24 01:32
Last Documented Vital Signs
Temp Pulse Resp BP Pulse Ox
98.1 F 81 18 146/46 96
01/27/24 01:32 01/27/24 02:33 01/27/24 02:33 01/27/24 02:00 01/27/24 02:33
<HUBERT Gramajo - Last Filed: 01/27/24 06:13>
MDM/Problems Addressed
Differential Diagnosis Includes:
R/O CVA
R knee fracture
MDM/Problems Addressed:
Noncontrast head CT to assess for CVA
-no evidence of CVA
XRAY of R knee
-no evidence of fracture
<HUBERT Gramajo - Last Filed: 01/27/24 06:13>
*Critical Care Note
Total Time (30-74mins, 75-104mins- exclusive of procedures): Not Applicable
ED Attending Note
<HUBERT Gramajo - Last Filed: 01/27/24 06:13>
-
Portions of this chart may have been created with voice recognition software.� Occasional wrong word or��sound alike� substitutions may have occurred due to the inherent limitations of voice recognition software.
<Peter Ramirez, DO - Last Filed: 01/27/24 03:12>
ED Attending Note
Patient seen and examined by attending physician: Yes
I performed the substantive portion of visit, reviewed & personally made and approve the management plan that is documented in note by myself or KALPANA.: Yes
ED Attending Note:
Pleasant 83-year-old male presents with unwitnessed fall. Patient does have a history of dementia and a poor historian. Patient complained of right knee pain. Upon arrival, right knee pain had resolved. Patient denies chest pain or shortness of
breath. He reports no headache, nausea, or vomiting. Patient was seen in conjunction with the PA student. I have reviewed and agree with the history and treatment plan presented. On my independent physical exam, patient is awake, and at
baseline. Heart is regular. Lungs are clear to auscultation bilaterally. Bilateral knee exam. Full range of motion. No tenderness to palpation. No obvious deformity or ecchymosis. No swelling. No midline joint tenderness bilaterally. Normal
knee exam.
Discharge Plan
Departure
Patient Disposition: Home (Routine Discharge)
Date of Disposition: 01/27/24
Time of Disposition: 03:11
Patient with high blood pressure during this ER visit?: No
Condition: Good
Discharge Problem:
Unwitnessed fall, Knee pain, Dementia
Instructions: Preventing falls in adults, Knee pain, BLOOD PRESSURE
Prescriptions:
No Action
nitroglycerin 0.4 MG tablet, sublingual
0.4 mg sublingual Q5MX3 PRN (Reason: chest pain)
cilostazol 100 MG tablet
100 mg PO BID
sennosides [senna] 1 TABLET tablet
2 tab PO HS
acetaminophen 325 MG tablet
650 mg PO Q4H PRN (Reason: mild pain/temp>100F)
simvastatin 40 MG tablet
40 mg PO HS
amlodipine 10 MG tablet
10 mg PO QPM
pantoprazole 40 MG tablet,delayed release (DR/EC)
40 mg PO DAILY
isosorbide mononitrate 60 MG tablet extended release 24 hr
60 mg PO BID@0900,1600
divalproex 125 MG tablet,delayed release (DR/EC)
125 mg PO BID
insulin lispro [Humalog KwikPen Insulin] 100 UNIT/ML insulin pen
0 - 14 units SC QID
Rx Instructions:
sliding scale: 70-149= 1 unit, 150-199= 2 units, 200-249= 4 units, 250-299= 7 units, 300-349= 10 units, 350-399= 12 units, 400-499= 14 units, over [address]
aspirin 81 MG tablet,delayed release (DR/EC)
81 mg PO DAILY
tamsulosin 0.4 MG capsule
0.4 mg PO HS
metoprolol tartrate 25 MG tablet
25 mg PO BID
Rx Instructions:
hold for SBP <100 or HR <60bpm
bupropion HCl 100 mg tablet
100 mg PO BID
cefdinir 300 mg capsule
300 mg PO Q12H 10 Days Qty: 20 0RF
Rx Instructions:
LAST DOSE 01/30/24 EVENING
risperidone 0.25 mg Tablet
0.25 mg PO BID Qty: 60 0RF
Referrals:
Jairo Jade I., DO [Family Provider] -
Activity Restrictions/Additional Instructions:
It was a pleasure meeting you and taking part in your care. We hope for your continued healing and wellness.
Please read discharge instructions in their entirety. However, they are for general education and may not describe your exact diagnosis at discharge. Information on your ER visit and medical conditions were discussed with you along with appropriate
follow up information...
If indicated, please take your medications as instructed and indicated on discharge paperwork.
Please schedule a follow up appointment as directed. Call to schedule an appointment
Please return to the emergency department with ANY change in, persisting, or worsening of symptoms. If any of your symptoms do not improve, or persist, or become more severe within 6-12 hours, please return to the emergency department for further
care.
Please return to the emergency department if you develop a headache, neck pain/stiffness, fever greater than 100.4F, chest pain, shortness of breath, persistent nausea, vomiting, slurred speech, difficulty walking, numbness/tingling, weakness, signs
of infection or any other symptoms that are worrisome to you.
If you have any questions or concerns please do not hesitate to call the Hospital at or E-mail me directly at [email or web address]
Interventions
Interventions:
*Risk Screen - Suicide Last Done: 01/27/24 01:32
*General Assessment Last Done: 01/27/24 01:32
*Neglect/Abuse Screening Last Done: 01/27/24 01:32
ED- Fall Risk Assessment Last Done: 01/27/24 01:37
*ED COVID-19 Vaccine History Last Done: 01/27/24 01:32
ED-Musculoskeletal Assessment Last Done: 01/27/24 01:37
ED- Neurological Assessment Last Done: 01/27/24 01:37
ED-Skin Assessment Last Done: 01/27/24 01:37
Discharge Date and Time
Print Language: WELSH
[2024-01-27 02:00] VITALS: BP 146/46
[2024-01-27 10:00] VITALS: BP 145/77
== END 2024-01-27 10:00 | disposition home or self-care (01) ==
LOC: EMR 01:30
PROVIDERS: EMERGENCY PHYSICIAN Student in an Organized Health Care Education/Training Program; FAMILY PHYSICIAN Internal Medicine
DX: M25.561 Pain in right knee (principal); W19.XXXA Unspecified fall, initial encounter; F17.200 Nicotine dependence, unspecified, uncomplicated; F03.A3 Unspecified dementia, mild, with mood disturbance
CPT/HCPCS: 99284; 70450; 73564

== ENCOUNTER 2024-01-28 11:35 | Emergency (ER) | payer MEDICARE, OTHER, SELFPAY ==
[2024-01-28 11:45] VITALS: BP 169/66
[2024-01-28 12:10] VITALS: BP 142/47
--- NOTE | 2024-01-28 12:44 | ED.MUSCINJ ---
HPI-Injury
General
Chief Complaint: Fall
Source: patient
Exam Limitations: none
Time Seen by Provider: 01/28/24 12:24
Travel History
Have you had any contact with someone who has COVID-19?: No
Do you have any symptoms of coronavirus? Fever > 100 degrees, chills, cough, shortness of breath, sore throat, loss of taste or smell, muscle aches, or headache?: No
History of Present Illness-Injury
Initial Injury comments:
83-year-old male with history of dementia presents from [facility] for reevaluation after another unwitnessed fall. He was complaining of pelvic pain. Patient is a very poor historian and often does not communicate verbally.
Past History
Past History
ED Past Medical History: CAD, COPD, GERD, HTN, Hypercholesterolemia, IDDM (type 2), [place], Psychiatric (depression, dementia with behavioral disturbances) and Other (HLD, angina or pressue, circulation problems, CP, PVD, dementia slight, frequent MARQUES,
Colitis, UTI's)
ED Past Surgical History: Appendectomy, Bowel resection (Perforated diverticulitis requiring emergency rectosigmoid resection with formation of colostomy March 31, 2021), Cardiac (CABG 2003), Orthopedic and Other (Cataracts)
Social History
Tobacco: Smoker
Alcohol: None
Drug: None
Personal: Single
Living: intermediate ([place])
Employment: Retired
Family History
Family History: Other (Diabetes, hypertension, coronary disease)
Phy Exam
Physical Exam
Physical Exam:
General: Well-appearing male no acute respiratory distress HEENT: Normocephalic atraumatic no scalp abrasion or hematoma
Heart: RRR, no mumurs
Lungs; CTA bilaterally
MSK: no spine tenderness. No obvious deformities. Patient moves both arms. Reluctant to move legs.
Neurologic: Alert knows his name. Follows commands.
Extremities: No cyanosis or edema
Skin; warm, no rashes
Injury Course
Orders/Labs/Results
Orders:
Orders
01/28/24 12:38
CR Pelvis - 1 Or 2 Views Urgent
Comment:
Reason For Exam: fall
MDM/Problems Addressed
Differential Diagnosis Includes:
Fall, reported hip pain. Xrays pending. No evidence of head trauma.
*Critical Care Note
Total Time (30-74mins, 75-104mins- exclusive of procedures): Not Applicable
Update Note
Update Note:
X-rays of the pelvis negative. Patient has no other tender areas on exam. No other complaints. Stable for discharge back to the facility.
ED Attending Note
-
Portions of this chart may have been created with voice recognition software.� Occasional wrong word or��sound alike� substitutions may have occurred due to the inherent limitations of voice recognition software.
Discharge Plan
Departure
Patient Disposition: Home (Routine Discharge)
Date of Disposition: 01/28/24
Time of Disposition: 14:27
Patient with high blood pressure during this ER visit?: No
Discharge Problem:
Fall
Instructions: Preventing falls in adults
Prescriptions:
No Action
nitroglycerin 0.4 MG tablet, sublingual
0.4 mg sublingual Q5MX3 PRN (Reason: chest pain)
cilostazol 100 MG tablet
100 mg PO BID
sennosides [senna] 1 TABLET tablet
2 tab PO HS
acetaminophen 325 MG tablet
650 mg PO Q4H PRN (Reason: mild pain/temp>100F)
simvastatin 40 MG tablet
40 mg PO HS
amlodipine 10 MG tablet
10 mg PO QPM
pantoprazole 40 MG tablet,delayed release (DR/EC)
40 mg PO DAILY
isosorbide mononitrate 60 MG tablet extended release 24 hr
60 mg PO BID@0900,1600
divalproex 125 MG tablet,delayed release (DR/EC)
125 mg PO BID
insulin lispro [Humalog KwikPen Insulin] 100 UNIT/ML insulin pen
0 - 14 units SC QID
Rx Instructions:
sliding scale: 70-149= 1 unit, 150-199= 2 units, 200-249= 4 units, 250-299= 7 units, 300-349= 10 units, 350-399= 12 units, 400-499= 14 units, over [address]
aspirin 81 MG tablet,delayed release (DR/EC)
81 mg PO DAILY
tamsulosin 0.4 MG capsule
0.4 mg PO HS
metoprolol tartrate 25 MG tablet
25 mg PO BID
Rx Instructions:
hold for SBP <100 or HR <60bpm
bupropion HCl 100 mg tablet
100 mg PO BID
cefdinir 300 mg capsule
300 mg PO Q12H 10 Days Qty: 20 0RF
Rx Instructions:
LAST DOSE 01/30/24 EVENING
risperidone 0.25 mg Tablet
0.25 mg PO BID Qty: 60 0RF
Referrals:
Jairo Jade I., DO [Family Provider] -
Activity Restrictions/Additional Instructions:
Please return here for worsening symptoms otherwise continue current medication regimen
Interventions
Interventions:
*Risk Screen - Suicide Last Done: 01/28/24 11:49
*General Assessment Last Done: 01/28/24 11:49
*Neglect/Abuse Screening Last Done: 01/28/24 11:49
*ED COVID-19 Vaccine History Last Done: 01/28/24 11:49
ED- Neurological Assessment Last Done: 01/28/24 11:50
ED-Skin Assessment Last Done: 01/28/24 11:50
Discharge Date and Time
Print Language: SLOVAK
[2024-01-28 13:00] VITALS: BP 129/89
[2024-01-28 17:33] VITALS: BP 125/72
== END 2024-01-28 17:35 | disposition home or self-care (01) ==
LOC: EMR 11:35
PROVIDERS: EMERGENCY PHYSICIAN Emergency Medicine; FAMILY PHYSICIAN Internal Medicine
DX: R10.2 Pelvic and perineal pain (principal); W19.XXXA Unspecified fall, initial encounter; F17.200 Nicotine dependence, unspecified, uncomplicated
CPT/HCPCS: 99283; 72170

== ENCOUNTER 2024-06-08 09:40 | Inpatient (IN) | payer MEDICARE, OTHER, SELFPAY ==
[2024-06-05 23:12] VITALS: BP 114/71
--- NOTE | 2024-06-05 23:15 | ED.GENMED ---
History of Present Illness
<HUBERT rEickson - Last Filed: 06/08/24 05:48>
General
Chief Complaint: Male Genito-Urinary Symptoms
Time Seen by Provider: 06/05/24 23:15
History of Present Illness
History of Present Illness:
Patient is an 83 year old male with a PMH of dementia presents to the ED with hematuria. Patient arrived from [facility] where he was supposed to have a carolina catheter placed, but they did not have the supplies. Patient reports pain and
a burning sensation when a carolina was placed in the ED. Marycarmen hematuria came from the catheter with minimal urine. Patient is currently taking aspirin 81mg for clot prevention, and nichole has a colostomy. Patient denies any smoking or alcohol use.
Past History
<HUBERT Erickson - Last Filed: 06/08/24 05:48>
Past History
ED Past Medical History: CAD, COPD, GERD, HTN, Hypercholesterolemia, IDDM (type 2), HI, Psychiatric (depression, dementia with behavioral disturbances) and Other (HLD, angina or pressue, circulation problems, CP, PVD, dementia slight, frequent MARQUES,
Colitis, UTI's)
ED Past Surgical History: Appendectomy, Bowel resection (Perforated diverticulitis requiring emergency rectosigmoid resection with formation of colostomy March 31, 2021), Cardiac (CABG 2003), Orthopedic and Other (Cataracts)
Social History
Tobacco: Smoker
Alcohol: None
Drug: None
Personal: Single
Living: fci ([place])
Employment: Retired
Family History
Family History: Other (Diabetes, hypertension, coronary disease)
Review of Systems
<HUBERT Erickson - Last Filed: 06/08/24 05:48>
Review of Systems
Unable to obtain full review of systems at this time due to: dementia
: Reports bleeding
Phy Exam
<ST DrePA - Last Filed: 06/08/24 05:48>
Physical Exam
Physical Exam:
see physical
Cardiovascular Exam
Cardiovascular Exam: regular rate/rhythm, no edema, no gallop, no JVD, no murmur and normal peripheral pulses
Genitourinary Exam Male
Exam Male: circumcised, normal external genitalia, no lesions and no testicular swelling
Course
<Jase GuamanHUBERT - Last Filed: 06/08/24 05:48>
Orders/Labs/Results
Orders:
Orders
06/05/24 23:20
Carolina Placement- Treatment ONCE
Reason for insertion: Acute Retention
06/05/24 23:35
Urinalysis Reflex To Culture Urgent
Date Specimen was Collected: 06/05/24
Time Specimen was Collected: 23:21
Urine Microscopic Reflex Cult Urgent
Urine Culture Urgent
JEWELL Source: U
Specimen Description:
Date Specimen was Collected: 06/05/24
Time Specimen was Collected: 23:21
06/05/24 23:57
Type+Screen Urgent
CBI- Treatment PRN
Solution: NSS
Irrigate to Clear?: Yes
Morphine Sulfate 4 mg IV NOW STA
06/05/24 23:58
Complete Blood Count/With Diff Urgent
Comprehensive Metabolic Panel Urgent
06/06/24 00:07
CefTRIAXone [Rocephin] 1,000 mg IV NOW STA
06/06/24 00:12
Lidocaine 2% [Lidocaine Uro-Jet 2%] 1 syringe .ROUTE .STK-MED ONE
06/06/24 00:48
Lidocaine 2% [Lidocaine Uro-Jet 2%] 1 syringe TOPICAL NOW STA
06/06/24 01:04
Morphine Sulfate 4 mg .ROUTE .STK-MED ONE
Morphine Sulfate 4 mg IV NOW STA
06/06/24 01:15
Nitroglycerin Sublingual [Nitrostat (Sublingual)] 0.4 mg SL [id number] PRN
06/06/24 01:18
Lorazepam [Ativan] 0.5 mg IV NOW STA
06/06/24 01:20
Admit/Transfer Patient As Directed
Co-Sign Provider:
Level of Care: Observation services
Assign to:: Medical/Surgical
Physician / Group: Hospitalist
Diagnosis: Gross hematuria
Code Status As Directed
Resuscitation Status: Do not resuscitate
Reached after discussion with pt or family/Healthcare POA: Yes
DNR Bracelet Application ONCE
PRN Pain Medication Management As Directed
May give lesser potent ordered pain med per pt: Yes
preference::
Protocol:: Medication orders for pain may be administered in a
manner that supports deferring to patient preference
when the pt is:
- Requesting an ordered lesser potent pain medication.
Least to most potent pain medications are defined
as: acetaminophen < NSAID < tramadol < opioids
(morphine, oxycodone, hydromorphone).
- Requesting a lesser dose of the same medication IF
ORDERED.
- Requesting a less intrusive route of administration
if both routes are prescribed by the provider (PO <
IV).
06/06/24 02:00
Flush (0.9% Sodium Chloride) [Flush (Nss)] See Dose Instructions IV PER PROTOCOL
06/06/24 02:11
Acetaminophen [Tylenol] 650 mg PO Q4HPRN PRN
Bisacodyl [Dulcolax] 10 mg RECTAL [id number] PRN
Docusate W/Senna [Senokot-S] 1 tablet PO BIDPRN PRN
Ondansetron Injectable [Zofran] 4 mg IV Q6HPRN PRN
Polyethylene Glycol Powder [Miralax] 17 grams PO DAILYPRN PRN
06/06/24 02:11
Consult Notification Routine
Specialty to Notify: Urology
Date consulting provider notified: 06/06/24
Time consulting provider notified: 07:53
Notified:: Provider
Comment: Mela MONTANEZ
UROLOGY CONSULT Routine
Consulting Provider: Ike Murry
Was physician already notified: No
Comment: traumatic catheter hematuria on CBI
Activity As Directed
Activity Level: With Assistance
Bedside Glucose Monitoring As Directed
Frequency: AC&HS
Pneumatic Compression Sleeves As Directed
Type: Knee high
Vital Signs As Directed
Frequency: Per unit guidelines
DX Deep Vein Thrombosis Video Routine
06/06/24 05:42
Basic Metabolic Panel IN AM
Complete Blood Count/No Diff IN AM
06/06/24 Breakfast
2000 calorie (17 carb) Diabetic
At Your Request: Non-Participating
06/06/24 07:30
Insulin Aspart Corrective Low [Novolog Flexpen-Low Resistance] See Protocol SC AC
06/06/24 08:00
Aspirin Low Dose EC [Aspir Low (Enteric Coated)] 81 mg PO DAILY
Bupropion Regular Release [Wellbutrin Regular Release] 100 mg PO Q48H
Cilostazol [Pletal] 100 mg PO BID
Divalproex Delayed Rel. 12 Hr [Depakote (12 Hr Release)] 125 mg PO BID
Metoprolol [Lopressor] 25 mg PO BID
Pantoprazole [Protonix] 40 mg PO DAILY
Risperidone [Risperdal] 0.25 mg PO BID
06/06/24 09:00
ISOSORBIDE MONOnitrate ER [Imdur (Extended Release)] 60 mg PO BID@0900,1600
06/06/24 18:00
Amlodipine [Norvasc] 10 mg PO QPM
06/06/24 22:00
Atorvastatin [Lipitor] 20 mg PO HS
Insulin Glargine Lantus [Lantus] 5 units Subcutaneous Insulin Syringe [Syringe-Insulin] 0 unit SC HS
Tamsulosin [Flomax] 0.4 mg PO HS
Abnormal Lab Results
06/05/24 06/06/24
23:35 00:05
RBC 4.02 L 10^6/uL
(4.70-6.10)
Hgb 11.0 L g/dL
(13.0-18.0)
Hct 31.8 L %
(39.0-52.0)
MCV 79.1 L fL
(80.0-94.0)
Abs Immat Gran (auto) 0.1 H 10^3/uL
(0-0.05)
Absolute Monos (auto) 0.7 H 10^3/uL
(0.1-0.6)
Immature Gran % 0.8 H %
(0-0.5)
Potassium 5.3 H mmol/L
(3.5-5.1)
Carbon Dioxide 19 L mmol/L
(22-30)
BUN 40 H mg/dl
(9-20)
Creatinine 1.8 H mg/dL
(0.7-1.3)
Glucose 153 H mg/dl
(70-99)
Urine Ketones 1+ A
(Negative)
Ur Occult Blood Reflex 4+ A
(Negative)
Urine Nitrite (Reflex) Positive A
(Negative)
Leukocyte Esterase Rfl 2+ A
(Negative)
Urine RBC >100 A /HPF
(0-2)
Urine Albumin (Reflex) 3+ A
(Neg - Trace)
06/06/24 00:05
06/06/24 00:05
Vital Signs
Initial and Last Documented VS:
Initial Vital Signs
Temp Pulse Resp BP Pulse Ox
98.2 F 95 18 114/71 98
06/05/24 23:12 06/05/24 23:12 06/05/24 23:12 06/05/24 23:12 06/05/24 23:12
Last Documented Vital Signs
Temp Pulse Resp BP Pulse Ox
98.5 F 82 16 95/58 100
06/07/24 23:05 06/07/24 23:05 06/07/24 23:05 06/07/24 23:05 06/07/24 23:05
<Harrison Dumont, DO - Last Filed: 06/06/24 00:42>
Orders/Labs/Results
Orders:
Orders
06/05/24 23:20
Carolina Placement- Treatment ONCE
Reason for insertion: Acute Retention
06/05/24 23:35
Urinalysis Reflex To Culture Urgent
Date Specimen was Collected: 06/05/24
Time Specimen was Collected: 23:21
Urine Microscopic Reflex Cult Urgent
Urine Culture Urgent
JEWELL Source: U
Specimen Description:
Date Specimen was Collected: 06/05/24
Time Specimen was Collected: 23:21
06/05/24 23:57
Type+Screen Urgent
CBI- Treatment PRN
Solution: NSS
Irrigate to Clear?: Yes
Morphine Sulfate 4 mg IV NOW STA
06/05/24 23:58
Complete Blood Count/With Diff Urgent
Comprehensive Metabolic Panel Urgent
06/06/24 00:07
CefTRIAXone [Rocephin] 1,000 mg IV NOW STA
06/06/24 00:12
Lidocaine 2% [Lidocaine Uro-Jet 2%] 1 syringe .ROUTE .STK-MED ONE
06/06/24 00:48
Lidocaine 2% [Lidocaine Uro-Jet 2%] 1 syringe TOPICAL NOW STA
06/06/24 01:04
Morphine Sulfate 4 mg .ROUTE .STK-MED ONE
Morphine Sulfate 4 mg IV NOW STA
06/06/24 01:15
Nitroglycerin Sublingual [Nitrostat (Sublingual)] 0.4 mg SL [id number] PRN
06/06/24 01:18
Lorazepam [Ativan] 0.5 mg IV NOW STA
06/06/24 01:20
Admit/Transfer Patient As Directed
Co-Sign Provider:
Level of Care: Observation services
Assign to:: Medical/Surgical
Physician / Group: Hospitalist
Diagnosis: Gross hematuria
Code Status As Directed
Resuscitation Status: Do not resuscitate
Reached after discussion with pt or family/Healthcare POA: Yes
DNR Bracelet Application ONCE
PRN Pain Medication Management As Directed
May give lesser potent ordered pain med per pt: Yes
preference::
Protocol:: Medication orders for pain may be administered in a
manner that supports deferring to patient preference
when the pt is:
- Requesting an ordered lesser potent pain medication.
Least to most potent pain medications are defined
as: acetaminophen < NSAID < tramadol < opioids
(morphine, oxycodone, hydromorphone).
- Requesting a lesser dose of the same medication IF
ORDERED.
- Requesting a less intrusive route of administration
if both routes are prescribed by the provider (PO <
IV).
06/06/24 02:00
Flush (0.9% Sodium Chloride) [Flush (Nss)] See Dose Instructions IV PER PROTOCOL
06/06/24 02:11
Acetaminophen [Tylenol] 650 mg PO Q4HPRN PRN
Bisacodyl [Dulcolax] 10 mg RECTAL [id number] PRN
Docusate W/Senna [Senokot-S] 1 tablet PO BIDPRN PRN
Ondansetron Injectable [Zofran] 4 mg IV Q6HPRN PRN
Polyethylene Glycol Powder [Miralax] 17 grams PO DAILYPRN PRN
06/06/24 02:11
Consult Notification Routine
Specialty to Notify: Urology
Date consulting provider notified: 06/06/24
Time consulting provider notified: 07:53
Notified:: Provider
Comment: Mela MONTANEZ
UROLOGY CONSULT Routine
Consulting Provider: Ike Murry
Was physician already notified: No
Comment: traumatic catheter hematuria on CBI
Activity As Directed
Activity Level: With Assistance
Bedside Glucose Monitoring As Directed
Frequency: AC&HS
Pneumatic Compression Sleeves As Directed
Type: Knee high
Vital Signs As Directed
Frequency: Per unit guidelines
DX Deep Vein Thrombosis Video Routine
06/06/24 05:42
Basic Metabolic Panel IN AM
Complete Blood Count/No Diff IN AM
06/06/24 Breakfast
2000 calorie (17 carb) Diabetic
At Your Request: Non-Participating
06/06/24 07:30
Insulin Aspart Corrective Low [Novolog Flexpen-Low Resistance] See Protocol SC AC
06/06/24 08:00
Aspirin Low Dose EC [Aspir Low (Enteric Coated)] 81 mg PO DAILY
Bupropion Regular Release [Wellbutrin Regular Release] 100 mg PO Q48H
Cilostazol [Pletal] 100 mg PO BID
Divalproex Delayed Rel. 12 Hr [Depakote (12 Hr Release)] 125 mg PO BID
Metoprolol [Lopressor] 25 mg PO BID
Pantoprazole [Protonix] 40 mg PO DAILY
Risperidone [Risperdal] 0.25 mg PO BID
06/06/24 09:00
ISOSORBIDE MONOnitrate ER [Imdur (Extended Release)] 60 mg PO BID@0900,1600
06/06/24 18:00
Amlodipine [Norvasc] 10 mg PO QPM
06/06/24 22:00
Atorvastatin [Lipitor] 20 mg PO HS
Insulin Glargine Lantus [Lantus] 5 units Subcutaneous Insulin Syringe [Syringe-Insulin] 0 unit SC HS
Tamsulosin [Flomax] 0.4 mg PO HS
Abnormal Lab Results
06/05/24 06/06/24
23:35 00:05
RBC 4.02 L 10^6/uL
(4.70-6.10)
Hgb 11.0 L g/dL
(13.0-18.0)
Hct 31.8 L %
(39.0-52.0)
MCV 79.1 L fL
(80.0-94.0)
Abs Immat Gran (auto) 0.1 H 10^3/uL
(0-0.05)
Absolute Monos (auto) 0.7 H 10^3/uL
(0.1-0.6)
Immature Gran % 0.8 H %
(0-0.5)
Potassium 5.3 H mmol/L
(3.5-5.1)
Carbon Dioxide 19 L mmol/L
(22-30)
BUN 40 H mg/dl
(9-20)
Creatinine 1.8 H mg/dL
(0.7-1.3)
Glucose 153 H mg/dl
(70-99)
Urine Ketones 1+ A
(Negative)
Ur Occult Blood Reflex 4+ A
(Negative)
Urine Nitrite (Reflex) Positive A
(Negative)
Leukocyte Esterase Rfl 2+ A
(Negative)
Urine RBC >100 A /HPF
(0-2)
Urine Albumin (Reflex) 3+ A
(Neg - Trace)
06/06/24 00:05
06/06/24 00:05
Vital Signs
Initial and Last Documented VS:
Initial Vital Signs
Temp Pulse Resp BP Pulse Ox
98.2 F 95 18 114/71 98
06/05/24 23:12 06/05/24 23:12 06/05/24 23:12 06/05/24 23:12 06/05/24 23:12
Last Documented Vital Signs
Temp Pulse Resp BP Pulse Ox
98.5 F 82 16 95/58 100
06/07/24 23:05 06/07/24 23:05 06/07/24 23:05 06/07/24 23:05 06/07/24 23:05
<HUBERT Erickson - Last Filed: 06/08/24 05:48>
*Critical Care Note
Total Time (30-74mins, 75-104mins- exclusive of procedures): Not Applicable
ED Attending Note
<HUBERT Erickson - Last Filed: 06/08/24 05:48>
-
Portions of this chart may have been created with voice recognition software.� Occasional wrong word or��sound alike� substitutions may have occurred due to the inherent limitations of voice recognition software.
<Harrison Dumont DO - Last Filed: 06/06/24 00:42>
ED Attending Note
Patient seen and examined by attending physician: Yes
I performed the substantive portion of visit, reviewed & personally made and approve the management plan that is documented in note by myself or KALPANA.: Yes
ED Attending Note:
I have seen and evaluated the patient with a diop-du-pfiu encounter. I have spoken to the advance practicer provider and involved in the medical history, the physical exam, medical decision making.
Evaluation and management service: agree unless noted differently below.
Results interpretation: agree unless noted differently below.
Focused HPI: 83-year-old male presenting for evaluation of hematuria. Per EMS, patient is supposed to go on hospice. The nursing staff did not have the supplies to place Carolina catheter so they attempt straight catheterization. Once they noted
hematuria, EMS were called. Patient denying any complaint
Physical exam: Weak and fatigued, penis without obvious trauma. Abdomen soft and nontender
Medical Decision Making: Carolina catheter was placed and marycarmen hematuria noted. Will attempt multiple flushes before considering three-way with CBI
Update 12 AM: Nursing staff did irrigate catheter and it is still marycarmen blood. Will obtain basic blood work and start CBI
Patient found to have nitrite positive urine. Based on prior susceptibilities, patient has had E. coli in the past. Will start Rocephin based on susceptibilities
Discharge Plan
Departure
Patient Disposition: Admit
Date of Disposition: 06/06/24
Time of Disposition: 00:42
Admit to: Med/Surg
Presentation/result/management discussed w/ accepting MD/DO: Hospitalist
Discharge Problem:
Hematuria, Acute UTI
Interventions
Interventions:
*Risk Screen - Suicide Last Done: 06/05/24 23:12
*General Assessment Last Done: 06/05/24 23:12
*Neglect/Abuse Screening Last Done: 06/05/24 23:12
ED- Fall Risk Assessment Last Done: 06/05/24 23:39
*ED COVID-19 Vaccine History Last Done: 06/06/24 03:07
*Nursing Disposition Last Done: 06/06/24 02:09
ED-Male Genitourinary Assessment Last Done: 06/05/24 23:39
Discharge Date and Time
Discharge Date/Time: 06/06/24 02:10
[2024-06-05 23:57] LABS: Urine Albumin 3+ (Neg - Trace); Urine Bilirubin Negative (Negative); Urine Character Bloody (Clear); Urine Color Red; Urine Glucose Negative (Negative); Urine Ketone 1+ (Negative); Urine Leukocyte 2+ (Negative); Urine Nitrite Positive (Negative); Urine Occult Blood 4+ (Negative); Urine Urobilinogen Negative (Neg - 1+)
[2024-06-06] MEDS: MORPHINE SULFATE 4 MG IV ×2 (00:03→01:06)
[2024-06-06 00:09] LABS: Urine Red Blood Cell >100 /HPF (0-2)
[2024-06-06 00:14] LABS: % Basophils 0.8 % (0-2); % Eosinophils 3.2 % (0-6); % Immature Granulocytes 0.8 % (0-0.5); % Lymphocytes 23.7 % (20.5-51.1); % Monocytes 8.3 % (1.7-9.3); % Neutrophils 63.2 % (42.2-75.2); Absolute Basophils 0.1 10^3/uL (0-0.2); Absolute Eosinophils 0.3 10^3/uL (0-0.7); Absolute Immature Granulocytes 0.1 10^3/uL (0-0.05); Absolute Monocytes 0.7 10^3/uL (0.1-0.6); Absolute Neutrophils 5.4 10^3/uL (1.4-6.5); Hematocrit 31.8 % (39.0-52.0); Mean Corp Hgb Conc. 34.6 g/dL (33.0-37.0); Mean Corpuscular Hgb 27.4 pg (27.0-31.0); Mean Corpuscular Volume 79.1 fL (80.0-94.0); Mean Platelet Volume 9.7 fL (7.4-10.4); Nucleated Red Blood Cells % 0 % (-); Platelet Count 398 10^3/uL (130-400); Red Blood Cell Count 4.02 10^6/uL (4.70-6.10); Red Cell Dist. Width 12.9 % (11.5-14.5); White Blood Cell Count 8.5 10^3/uL (4.8-10.8)
[2024-06-06 00:31] LABS: ALT (SGPT) 28 U/L (0-50); AST (SGOT) 38 U/L (17-59); Albumin 3.9 g/dl (3.5-5.0); Alkaline Phosphatase 100 U/L (38-126); Blood Urea Nitrogen 40 mg/dl (9-20); Carbon Dioxide 19 mmol/L (22-30); Chloride 105 mmol/L (98-107); Glucose 153 mg/dl (70-99); Potassium 5.3 mmol/L (3.5-5.1); Sodium 140 mmol/L (135-145); Total Bilirubin 0.7 mg/dl (0.2-1.3); Total Protein 6.6 g/dl (6.3-8.2); eGFR 37.35
[2024-06-06] MEDS: ROCEPHIN 1000 MG IV (00:46)
[2024-06-06] MEDS: LIDOCAINE URO-JET 2% 1 SYRINGE TOPICAL (00:48)
--- NOTE | 2024-06-06 00:55 | HPS.HSE ---
Family Physician
-
Family Physician: Jairo Jade
Chief Complaint
-
Hematuria
History of Present Illness
This is a 83-year-old male with past medical history significant for dementia and a recent diagnosis of liver mass (likely malignancy but biopsy unsuccessful for tissue diagnosis), CKD stage III, COPD, BPH, insulin-dependent diabetes and CAD who is
movement was comfort measures and was transferred to the Emergency Department for hematuria today.
Patient unable to provide much history secondary to dementia. He denies any new or acute symptoms. There was an attempted straight cath earlier today while at the residential with development of gross hematuria. Unclear whether he had associated
retention at the time. However patient was brought to the ED. In the ED urinary catheter was placed with marycarmen blood. Appeared to be having some pain with retention once CBI started. Flushing cleared the clots and patient's discomfort relieved.
He was given Rocephin.
In the ED he was afebrile, hemodynamically stable with normal oxygen saturation on room air. Hemoglobin was stable at 11. Chemistries were unremarkable with a K of 5.3 BUN of 40 and a creatinine of 1.8. Glucose was 153. He has normal coags and
platelet.
Medical History
Past Medical History
Past Medical History: Reports CAD, Cancer (Liver mass), COPD, Dementia and Hypercholesterolemia
Additional Past Medical History:
CKD III
Perforaed Diverticulitis s/p Diallo
Past Surgical History: Reports Other (Diallo Procedure)
Social History
Tobacco: Non-smoker
Alcohol: None
Drug: None
Living: [facility]
Employment: Retired
Family History
Family History: Not pertinent
Allergies / Home Medications
Allergies reflects when Allergies were last updated in [facility].
Home Medications with original date entered in [facility]
Allergy/Medication List:
Allergies
Allergy/AdvReac Type Severity Reaction Status Date / Time
No Known Allergies Allergy Verified 06/05/24 23:18
Home Medications
nitroglycerin 0.4 mg sublingual tablet 0.4 mg sublingual [id number] PRN chest pain 01/08/17
acetaminophen 325 mg tablet 650 mg PO Q4H PRN mild pain/temp>100F 12/01/17
amlodipine 10 mg tablet 10 mg PO QPM Blood pressure 12/01/17
cilostazol 100 mg tablet 100 mg PO BID s/p cabg 12/01/17
pantoprazole 40 mg tablet,delayed release 40 mg PO DAILY Gastrointestinal issue 12/01/17
sennosides 8.6 mg tablet (senna) 2 tab PO HS Constipation 12/01/17
simvastatin 40 mg tablet 40 mg PO HS High cholesterol 12/01/17
isosorbide mononitrate 60 mg tablet,extended release 24 hr 60 mg PO BID@0900,1600 Heart disease/condition 03/22/18
divalproex 125 mg tablet,delayed release 125 mg PO BID seizures/mental health 07/21/20
aspirin 81 mg tablet,delayed release 81 mg PO DAILY Blood clot prevention/tx 04/12/21
insulin lispro 100 unit/mL subcutaneous pen (Humalog KwikPen (U-100) Insulin) 0 - 14 units SC QID Diabetes 04/12/21
tamsulosin 0.4 mg capsule 0.4 mg PO HS Urinary issue 04/12/21
metoprolol tartrate 25 mg tablet 25 mg PO BID Blood pressure 12/29/21
bupropion HCl 100 mg tablet 100 mg PO BID Mental Health/Anxiety 11/19/22
cefdinir 300 mg capsule 300 mg PO Q12H 10 days #20 caps 01/23/24
risperidone 0.25 mg tablet 0.25 mg PO BID #60 tabs 01/24/24
Review of Systems
-
Unable to obtain full review of systems at this time due to: Dementia
Physical Exam
Vital Signs
Vital Signs
Temp Pulse Resp BP Pulse Ox
98.2 F 95 18 114/71 98
06/05/24 23:12 06/05/24 23:12 06/05/24 23:12 06/05/24 23:12 06/05/24 23:12
Physical Exam
General: Pain
HEENT: NormoCephalic, Anicteric, Moist mucous membranes and Atraumatic
Respiratory: Clear
Cardiac: S1/S2 and Regular Rhythm
Breast: Deferred by me
GI: Soft, Non Tender, Non Distended, Normal Bowel Sounds and Ostomy
Rectal: Deferred by Provider
Genito-urinary: Bloody Urine and Continuous Bladder Irrigation
Musculoskeletal: No Clubbing, No Cyanosis and No Edema
Skin: Warm
Neuro: Alert and Oriented (oriented to person)
Hematologic/Lymphatic: No Lymphadenopathy
Psych: Confused
Laboratory Results
-
06/06/24 00:05
06/06/24 00:05
Laboratory Results
Total Bilirubin 0.7 mg/dl (0.2-1.3) 06/06/24 00:05
AST 38 U/L (17-59) 06/06/24 00:05
ALT 28 U/L (0-50) 06/06/24 00:05
Alkaline Phosphatase 100 U/L (38-126) 06/06/24 00:05
Data Reviewed
-
Lab Data: Labs Reviewed by me
Impression/Plan
-
IMPRESSION:
Patient with multiple commorbidites including an untreated liver mass, dementia, diverticulitis s/p diallo, CAD and BPH coming in with hematuria in setting of straight catheterization at residential. Marycarmen blood on carolina insertion in ED. CBI
initiated. Clots noted requiring flushing. Patient is hemodynamically stable. Hemoglobin is stable. He is not on any anticoagulation.
PLAN:
1. Gross hematuria. - 2/2 to traumatic catheter insertion for possible retention. Hgb stable. Afebrile. S/P abx in ED.
- admit to med surg
- urine cultures, hold abx for now
- CBI for now with i/o and monitoring for obstruction
- tamsulosin
- urology consultation
2. Liver mass - Patient with likely liver Ca. Family moving towards hospice but not there. No further w/u or treatment planned.
- pain control for nw
3. CAD - stable.
- continue aspirin, imdur and prn ntg
- continue metoprlol
4. Behavioral - calm, dementia
- continue risperdal, bupropion and depakote
4. DM II
- insulin sliding scale
DVT PPX - scds
Code Status - DNR
[2024-06-06] MEDS: ATIVAN 0.5 MG IV (01:24)
[2024-06-06 02:26] VITALS: BP 135/67
--- NOTE | 2024-06-06 05:53 | PTCARENOTE ---
Pt admitted from ED to 3W via stretcher. CBI bag infusing. Pt initially arrived sleeping. Medsitter in place due to hx of agitation during past admissions and dx of dementia. Pt then woke up attempting to remove catheter, colostomy bag and gown. CONFIGURATION DEVELOPER
notified and B/L mitts and soft wrist restraints in place.
[2024-06-06 06:10] LABS: Hematocrit 33.4 % (39.0-52.0); Hemoglobin 11.1 g/dL (13.0-18.0); Mean Corp Hgb Conc. 33.2 g/dL (33.0-37.0); Mean Corpuscular Hgb 28.3 pg (27.0-31.0); Mean Corpuscular Volume 85.2 fL (80.0-94.0); Mean Platelet Volume 9.8 fL (7.4-10.4); Platelet Count 355 10^3/uL (130-400); Red Blood Cell Count 3.92 10^6/uL (4.70-6.10); Red Cell Dist. Width 13.1 % (11.5-14.5); White Blood Cell Count 10.3 10^3/uL (4.8-10.8)
[2024-06-06 06:33] LABS: Blood Urea Nitrogen 43 mg/dl (9-20); Calcium 9.7 mg/dl (8.4-10.2); Carbon Dioxide 19 mmol/L (22-30); Chloride 102 mmol/L (98-107); Glucose 236 mg/dl (70-99); Potassium 5.2 mmol/L (3.5-5.1); Sodium 138 mmol/L (135-145); eGFR 37.35
[2024-06-06 07:19] VITALS: BP 163/75
[2024-06-06 07:45] LABS: Glucose - Point of Care 206 mg/dl (70-99)
[2024-06-06] MEDS: LOPRESSOR 25 MG PO ×2 (08:32→22:28)
[2024-06-06] MEDS: RISPERDAL 0.25 MG PO ×2 (08:32→22:28)
[2024-06-06] MEDS: PROTONIX 40 MG PO (08:32)
[2024-06-06] MEDS: ASPIR LOW (ENTERIC COATED) 81 MG PO (08:32)
[2024-06-06] MEDS: WELLBUTRIN REGULAR RELEASE 100 MG PO (08:33)
[2024-06-06] MEDS: PLETAL 100 MG PO ×2 (08:33→22:28)
[2024-06-06] MEDS: DEPAKOTE (12 HR RELEASE) 125 MG PO ×2 (08:34→22:28)
[2024-06-06] MEDS: IMDUR (EXTENDED RELEASE) 60 MG PO ×2 (08:37→15:50)
--- NOTE | 2024-06-06 09:05 | W.PN.URO.CBU ---
Today's Communication / Plan
-
sp tube changed
Assessment / Plan
-
chank=ge sp tube done upsized 16 fr to 22 fr pt aware needs q 4 month changes has vn
Diagnosis
-
Date of Service: June 06, 2024
-
Patient Diagnosis:urinary retention now with sp tube placed at brewer due for change asditted for sob
Post Op Day:
Subjective
-
no new gu complaints
Objective
-
Vital Signs
Temp Pulse Resp BP Pulse Ox
97.4 F 105 18 163/75 94
06/06/24 07:19 06/06/24 08:32 06/06/24 07:19 06/06/24 08:32 06/06/24 07:19
Intake and Output
06/05/24 06/06/24 06/07/24
06:59 06:59 06:59
Output Total 1325 / 1325
Balance -1325 / -1325
Output:
True Urine Output from CBI 1325 / 1325
Laboratory Results
06/06/24 05:42
06/06/24 05:42
Review of Systems
-
: Difficulty Voiding
Physical Exam
-
General - well developed, well nourished, no acute distress
Chest - clear bilaterally
Abdomen - soft, non-tender, positive bowel sounds, no CVAT, no incisional pain or distention
Genitalia - normal
Rectal - normal
Skin - warm & dry with no rash
Neuro - AOx3, no motor deficits
Extremities - no clubbing, no cyanosis, no edema
Incision - clean, dry
Dressing - clean, dry, intact
Care Review
Data Reviewed
Discussed with: Hospitalist and Nursing
[2024-06-06] MEDS: NOVOLOG FLEXPEN-LOW RESISTANCE 2 UNITS SC ×2 (09:20→13:02)
--- NOTE | 2024-06-06 11:42 | W.PN.HOSP.TC ---
Today's Communication/Plan
-
Monitor clinically
Follow-up urology recommendations
Possible discharge
Assessment / Plan
Assessment / Plan
#Gross hematuria.
-2/2 to traumatic catheter insertion for possible retention.
-Hemoglobin stable, remains afebrile; received IV ABX in ED
-Started on CBI, has been DC'd as urine is clear
-Remains on tamsulosin, which he takes at home
-Monitor urine cultures and for signs of UTI
-Urology consulted
#Liver mass
-Patient with likely liver Ca
-Family moving towards hospice but not there.
-No further w/u or treatment planned.
-pain control for nw
#CAD s/p CABG
-Home regimen includes statin, aspirin, Imdur, beta-jennifer, cilostazol, as needed NTG
-No known coronary interventions such as CABG or PCI
-No signs or symptoms of active coronary ischemia here
#Hypertension
-Home medications include amlodipine
-No known history of hypertensive CVD
-BPs currently adequate for hospital stay
#Dementia
-continue risperdal, bupropion and depakote
#T2DM
-Home medications include short acting insulin, no basal insulin
-Blood sugars currently well-controlled on ISS with Accu-Cheks here
#Seizure disorder
-Home medications include divalproex 125 mg twice daily
-Also was on bupropion which can lower seizure threshold
-Should follow-up outpatient for medical optimization
DVT PPX: scds
Diet: Carbohydrate controlled
Code Status: DNR
Anticipated Discharge: Within 24 hours
Subjective/Interval History
-
Date of Service: June 06, 2024
Seen and examined at bedside. No acute events overnight. AFVSS morning.
Seen by urology, discontinued CBI. Urine in Pugh bag is clear.
History limited by his dementia
Objective Data
-
Labs:
Laboratory Results
06/06/24 06/06/24
00:05 05:42
WBC 8.5 10.3
Hgb 11.0 L 11.1 L
Hct 31.8 L 33.4 L
Plt Count 398 355
Sodium 140 138
Potassium 5.3 H 5.2 H
Chloride 105 102
Carbon Dioxide 19 L 19 L
BUN 40 H 43 H
Creatinine 1.8 H 1.8 H
Glucose 153 H 236 H
Calcium 10.0 9.7
Total Bilirubin 0.7
AST 38
ALT 28
Alkaline Phosphatase 100
Vital Signs:
Vital Signs
Temp Pulse Resp BP Pulse Ox
97.4 F 105 18 163/75 94
06/06/24 07:19 06/06/24 08:32 06/06/24 07:19 06/06/24 08:32 06/06/24 07:19
I&O
06/05/24 06/06/24 06/07/24
06:59 06:59 06:59
Output Total 1325 / 1325 200 / 200
Balance -1325 / -1325 -200 / -200
Review of Systems
-
Unable to obtain full review of systems at this time due to: Dementia
Physical Exam
-
General: No Apparent Distress and Comfortable; Negative Pain
HEENT: Normocephalic, Atraumatic and Moist Mucous Membranes
Respiratory: Clear to Auscultation and Non Labored Respirations; Negative Wheezes, Rales or Rhonchi
Cardiac: Regular Rhythm and S1/S2; Negative Murmur, Rub, JVD or Gallop
GI: Soft, Nontender, Nondistended, Normal Bowel Sounds and Ostomy
Genito-urinary: No Costovertebral Tender, Clear Urine and Pugh
Musculoskeletal: No Clubbing, No Cyanosis and No Edema
Skin: Warm and Dry; Negative Rash or Jaundice
Neuro: Awake, Alert, Nonfocal/Grossly Intact and Central Nerve's Intact
Psych: Agitated
Data Reviewed
-
Labs: Labs Reviewed by me and Discussed with Nurse
[2024-06-06 11:43] LABS: Glucose - Point of Care 226 mg/dl (70-99)
--- NOTE | 2024-06-06 12:31 | W.PN.URO.CBU ---
Today's Communication / Plan
-
stop cbi keep carolina
Assessment / Plan
-
rettnionurine hematuria of carolina trauma fpo4 now stop cbi keep carolina back to nursing hme with carolina when mediavcly stable
Diagnosis
-
Date of Service: June 06, 2024
-
Patient Diagnosis:
hematiria after failed cath placement at [facility] carolina placed hre now clear urine
Post Op Day:
Subjective
-
clear urine demtai no insight this am into ast pm events
Objective
-
Vital Signs
Temp Pulse Resp BP Pulse Ox
97.4 F 105 18 163/75 94
06/06/24 07:19 06/06/24 08:32 06/06/24 07:19 06/06/24 08:32 06/06/24 07:19
Intake and Output
06/05/24 06/06/24 06/07/24
06:59 06:59 06:59
Output Total 1325 / 1325 200 / 200
Balance -1325 / -1325 -200 / -200
Output:
True Urine Output from CBI 1325 / 1325 200 / 200
Laboratory Results
06/06/24 05:42
06/06/24 05:42
Review of Systems
-
: Difficulty Voiding
Physical Exam
-
General - well developed, well nourished, no acute distress
Chest - clear bilaterally
Abdomen - soft, non-tender, positive bowel sounds, no CVAT, no incisional pain or distention
Genitalia - normal
Rectal - normal
Skin - warm & dry with no rash
Neuro - AOx3, no motor deficits
Extremities - no clubbing, no cyanosis, no edema
Incision - clean, dry
Dressing - clean, dry, intact
Care Review
Data Reviewed
Discussed with: Hospitalist and Nursing
--- NOTE | 2024-06-06 14:42 | CM ---
Addendum entered by ROSALINDA Fitzpatrick 06/06/24 16:03:
Per nurse patient in restraints. D.c cancelled as SNF cannot take. He is in restraints to prevent him from pulling out catheter. Patient may have to stay in hospital until carolina can be taken out. Nephew updated.
Original Note:
Patient with dementia and agitation. Cm left Vm for nephew. Explained patient under Observation status and left phone number to call to text observation form without patient indentification on it.
Discharge order noted.
Pt is a LTC resident at [facility]. A referral to [facility] made, spoke to liaison Eboni, pt is accepted for re -admission today.
to schedule ambulance forklift picker time. [facility] completed and left with .
[facility] nursing report: [phone]
Fax report to: [phone]
D/C plan: return back to [facility] for a snf care.
--- NOTE | 2024-06-06 14:51 | W.DCSUMMARY ---
Discharge Summary
Discharge Data
Date of Admission: 06/06/24
Date of Discharge: 06/06/24
-
Pending Results: No
Hospital Course
83-year-old male with CKD 3, COPD, CAD, BPH, IDDM, liver mass (presumed cancer, not seeking further workup), s/p Diallo procedure, advanced dementia that presented to the hospital with gross hematuria. History was limited due to his dementia,
suspicion is that he attempted straight catheter for his chronic retention and developed localized trauma to the urethra. Upon arrival he had gross hematuria seen, was started on continuous bladder irrigation by urology. His urine quickly cleared
and was without signs of bleeding by bottom cager of day one of his hospital stay. No clots, no signs of obstruction. Was seen again by urology in the morning of 06/06/2024 who recommended discontinuing CBI and continuing with chronic [place]
catheter for now. Will follow-up in urologist office. Referral provided to discharge. No medication changes made in the hospital. Hemoglobin stable despite bleeding.
Discharge Plan
-
Patient Disposition: Long-Term/SNF
Discharge Diagnosis/Procedures: Hematuria (likely traumatic)
Condition: Good
Diet: No restrictions
Activity: As tolerated
Driving Restrictions: No driving
Bathing Restrictions: None
Blood Work: None
Others Tests: None
Other Services: VN, PT and OT
Activity Restrictions/Additional Instructions:
Schedule follow-up appointment with primary care doctor within 7 days of discharge from the hospital. This will be for routine hospital follow-up.
Please call to schedule a follow-up appointment with urologist in the office. Referral is provided below
Referrals:
Jairo Jade I., [Family Provider] -
Ike Murry MD [Active] - ([facility] dr murry for folow up [phone] urology about carolina care)
Additional Discharge Medication Instructions: No medication changes
Prescriptions:
Continued
nitroglycerin 0.4 MG tablet, sublingual
0.4 mg sublingual Q5MX3 PRN (Reason: chest pain)
cilostazol 100 MG tablet
100 mg PO BID
sennosides [senna] 1 TABLET tablet
2 tab PO HS
acetaminophen 325 MG tablet
650 mg PO Q4H PRN (Reason: mild pain/temp>100F)
simvastatin 40 MG tablet
40 mg PO HS
amlodipine 10 MG tablet
10 mg PO QPM
pantoprazole 40 MG tablet,delayed release (DR/EC)
40 mg PO DAILY
isosorbide mononitrate 60 MG tablet extended release 24 hr
60 mg PO BID@0900,1600
divalproex 125 MG tablet,delayed release (DR/EC)
125 mg PO BID
insulin lispro [Humalog KwikPen Insulin] 100 UNIT/ML insulin pen
0 - 14 units SC QID
Rx Instructions:
sliding scale: 70-149= 1 unit, 150-199= 2 units, 200-249= 4 units, 250-299= 7 units, 300-349= 10 units, 350-399= 12 units, 400-499= 14 units, over [address]
aspirin 81 MG tablet,delayed release (DR/EC)
81 mg PO DAILY
tamsulosin 0.4 MG capsule
0.4 mg PO HS
metoprolol tartrate 25 MG tablet
25 mg PO BID
Rx Instructions:
hold for SBP <100 or HR <60bpm
risperidone 0.25 mg Tablet
0.25 mg PO BID Qty: 60 0RF
bupropion HCl 100 mg Tablet Sustained-Release 12 Hr
100 mg PO Q48H
duloxetine [Cymbalta] 20 mg Capsule,Delayed Release(Dr/Ec)
20 mg PO BID
insulin glargine [Lantus Solostar U-100 Insulin] 100 unit/mL (3 mL) Insulin Pen
5 unit SC HS
Discharge Orders:
Discharge Patient (As Directed); Ordered 06/06/24
Ordered By: Jere Woods
Discharge Date and Time
Print Language: SAMI
[2024-06-06 15:33] VITALS: BP 144/69
[2024-06-06 16:38] LABS: Glucose - Point of Care 271 mg/dl (70-99)
[2024-06-06] MEDS: NOVOLOG FLEXPEN-LOW RESISTANCE 3 UNITS SC (18:17)
[2024-06-06] MEDS: NORVASC 10 MG PO (18:17)
[2024-06-06 21:34] LABS: Glucose - Point of Care 319 mg/dl (70-99)
[2024-06-06] MEDS: FLOMAX 0.4 MG PO (22:27)
[2024-06-06] MEDS: LIPITOR 20 MG PO (22:28)
[2024-06-06] MEDS: LANTUS 0.05 UNITS SC (22:35)
[2024-06-06 23:50] VITALS: BP 147/77
[2024-06-07] MEDS: TYLENOL 650 MG PO ×2 (05:17→21:45)
[2024-06-07 07:29] VITALS: BP 103/58
[2024-06-07 07:30] LABS: Glucose - Point of Care 304 mg/dl (70-99)
[2024-06-07] MEDS: IMDUR (EXTENDED RELEASE) 60 MG PO ×2 (09:18→16:00)
[2024-06-07] MEDS: PROTONIX 40 MG PO (09:18)
[2024-06-07] MEDS: LOPRESSOR 25 MG PO ×2 (09:18→20:17)
[2024-06-07] MEDS: RISPERDAL 0.25 MG PO ×2 (09:19→20:17)
[2024-06-07] MEDS: PLETAL 100 MG PO ×2 (09:19→20:17)
[2024-06-07] MEDS: DEPAKOTE (12 HR RELEASE) 125 MG PO ×2 (09:19→20:17)
[2024-06-07] MEDS: ASPIR LOW (ENTERIC COATED) 81 MG PO (09:19)
[2024-06-07] MEDS: NOVOLOG FLEXPEN-LOW RESISTANCE 4 UNITS SC ×2 (09:25→17:35)
--- NOTE | 2024-06-07 10:28 | W.PN.HOSP.TC ---
Today's Communication/Plan
-
Maintain restraints and one-to-one while Pugh present
Monitor urine output
Consider TOV tomorrow
Assessment / Plan
Assessment / Plan
#Gross hematuria.
-2/2 to traumatic straight catheter by staff at his living facility
-Hemoglobin stable, remains afebrile; received IV ABX in ED though does not seem infected now
-Status post CBI, urine clear yesterday though some signs of bleeding today
-Remains on tamsulosin, which he takes at home
-Monitor urine cultures and for signs of UTI
-Urology consulted
Plan
-Will keep patient in restraints, Pugh in place through tomorrow
-Will speak with urology about removing Pugh on day 3
-Continue to monitor urine output
#Agitation
#Dementia
-Has been agitated by the presence of his Pugh catheter, trying to remove it
-He is currently on video one-to-one and then a soft bilateral upper limb restraint
-Suspect his agitation will improve when catheter is removed
-Will continue with restraints and one-to-one until Pugh removed
-continue risperdal, bupropion and depakote
#Liver mass
-Patient with likely liver Ca
-Family moving towards hospice but not there.
-No further w/u or treatment planned.
-pain control for nw
#CAD s/p CABG
-Home regimen includes statin, aspirin, Imdur, beta-jennifer, cilostazol, as needed NTG
-No known coronary interventions such as CABG or PCI
-No signs or symptoms of active coronary ischemia here
#Hypertension
-Home medications include amlodipine
-No known history of hypertensive CVD
-BPs currently adequate for hospital stay
#T2DM
-Home medications include short acting insulin, no basal insulin
-Blood sugars currently well-controlled on ISS with Accu-Cheks here
#Seizure disorder
-Home medications include divalproex 125 mg twice daily
-Also was on bupropion which can lower seizure threshold
-Should follow-up outpatient for medical optimization
DVT PPX: scds
Diet: Carbohydrate controlled
Code Status: DNR
Anticipated Discharge: 24 - 48 hours
Subjective/Interval History
-
Date of Service: June 07, 2024
Seen and examined at the bedside. No acute events overnight. Remains on one-to-one, upper limb restraints. AFVSS.
He does have some hematuria within his Pugh bag today, suspect this is still related to the initial trauma prior to his admission.
History limited by his dementia
Objective Data
-
Vital Signs:
Vital Signs
Temp Pulse Resp BP Pulse Ox
98.2 F 92 12 103/58 94
06/07/24 07:29 06/07/24 09:18 06/07/24 07:29 06/07/24 09:18 06/07/24 07:29
I&O
06/06/24 06/07/24 06/08/24
06:59 06:59 06:59
Intake Total 90 / 90
Output Total 1325 / 1325 1830 / 1830
Balance -1325 / -1325 -1740 / -1740
Review of Systems
-
Unable to obtain full review of systems at this time due to: Dementia
Physical Exam
-
General: Well Nourished, No Apparent Distress and Comfortable
HEENT: Normocephalic, Atraumatic, Moist Mucous Membranes and Anicteric
Respiratory: Clear to Auscultation and Non Labored Respirations; Negative Wheezes, Rales or Rhonchi
Cardiac: Regular Rhythm and S1/S2; Negative Murmur, Rub, JVD or Gallop
GI: Soft, Nontender, Nondistended, Normal Bowel Sounds and Ostomy
Musculoskeletal: No Clubbing, No Cyanosis and No Edema
Skin: Warm and Dry; Negative Rash or Jaundice
Neuro: Awake, Alert, Nonfocal/Grossly Intact and Central Nerve's Intact; Negative Tremors
[2024-06-07 11:27] LABS: Glucose - Point of Care 236 mg/dl (70-99)
[2024-06-07] MEDS: NOVOLOG FLEXPEN-LOW RESISTANCE 2 UNITS SC (13:15)
[2024-06-07 16:30] LABS: Glucose - Point of Care 321 mg/dl (70-99)
[2024-06-07] MEDS: NORVASC 10 MG PO (17:37)
[2024-06-07 21:38] LABS: Glucose - Point of Care 242 mg/dl (70-99)
[2024-06-07] MEDS: FLOMAX 0.4 MG PO (21:44)
[2024-06-07] MEDS: LANTUS 0.05 UNITS SC (21:44)
[2024-06-07] MEDS: LIPITOR 20 MG PO (21:44)
[2024-06-07 23:05] VITALS: BP 95/58
--- NOTE | 2024-06-08 03:09 | PTCARENOTE ---
Medsitter alerted this RN several times that patient was throwing legs out of bed and trying to roll over the side rails. While trying to redirect and place legs back into bed, patient became increasingly aggressive. Pt. swatted at this RN, tried to
bite this RN and PCT. KEDAR Love notified. New order rec'd for b/l soft wrist restraints. B/l restraints placed per orders. Pt kicking at staff. Plan of care ongoing.
--- NOTE | 2024-06-08 03:14 | DOWNTIME ---
There was a [employer] Downtime on 06/08/2024 from 0100 to 06/08/2024 at 0300. Downtime documentation of patient's care, including medication administrations, has been reconciled in the electronic record per guidelines. Refer to the
patient's paper chart under the miscellaneous tab to see printed paper medication records and downtime forms.
[2024-06-08] MEDS: SENOKOT-S 1 TABLET PO ×2 (03:38→18:01)
[2024-06-08 07:22] VITALS: BP 111/62
[2024-06-08 07:26] LABS: % Basophils 0.7 % (0-2); % Eosinophils 0.5 % (0-6); % Immature Granulocytes 0.7 % (0-0.5); % Lymphocytes 11.4 % (20.5-51.1); % Monocytes 7.8 % (1.7-9.3); % Neutrophils 78.9 % (42.2-75.2); Absolute Basophils 0.1 10^3/uL (0-0.2); Absolute Eosinophils 0.1 10^3/uL (0-0.7); Absolute Immature Granulocytes 0.1 10^3/uL (0-0.05); Absolute Lymphocytes 1.3 10^3/uL (1.2-3.4); Absolute Monocytes 0.9 10^3/uL (0.1-0.6); Absolute Neutrophils 9.2 10^3/uL (1.4-6.5); Hemoglobin 10.9 g/dL (13.0-18.0); Mean Corp Hgb Conc. 34.1 g/dL (33.0-37.0); Mean Corpuscular Hgb 27.3 pg (27.0-31.0); Nucleated Red Blood Cells % 0 % (-); Platelet Count 426 10^3/uL (130-400); Red Cell Dist. Width 13.1 % (11.5-14.5); White Blood Cell Count 11.7 10^3/uL (4.8-10.8)
[2024-06-08 07:38] LABS: Glucose - Point of Care 323 mg/dl (70-99)
[2024-06-08 08:02] LABS: Blood Urea Nitrogen 42 mg/dl (9-20); Calcium 10.1 mg/dl (8.4-10.2); Carbon Dioxide 19 mmol/L (22-30); Chloride 103 mmol/L (98-107); Glucose 301 mg/dl (70-99); Sodium 138 mmol/L (135-145); eGFR 32.91
[2024-06-08] MEDS: WELLBUTRIN REGULAR RELEASE 100 MG PO (09:09)
[2024-06-08] MEDS: PROTONIX 40 MG PO (09:09)
[2024-06-08] MEDS: LOPRESSOR 25 MG PO ×2 (09:09→20:22)
[2024-06-08] MEDS: IMDUR (EXTENDED RELEASE) 60 MG PO ×2 (09:09→18:03)
[2024-06-08] MEDS: NOVOLOG FLEXPEN-LOW RESISTANCE 4 UNITS SC ×2 (09:09→12:48)
[2024-06-08] MEDS: DEPAKOTE (12 HR RELEASE) 125 MG PO ×2 (09:10→20:22)
[2024-06-08] MEDS: ASPIR LOW (ENTERIC COATED) 81 MG PO (09:10)
[2024-06-08] MEDS: PLETAL 100 MG PO ×2 (09:10→20:23)
[2024-06-08] MEDS: RISPERDAL 0.25 MG PO ×2 (09:10→20:23)
--- NOTE | 2024-06-08 10:18 | CM ---
Reviewed chart, patient back in restraints, yelling and biting staff. Will stay in communication with [facility].
Plan: Case management will continue to follow and assist with discharge planning. Transfer back to [facility] when patient is behaviorally stable.
[2024-06-08 11:17] LABS: Glucose - Point of Care 327 mg/dl (70-99)
[2024-06-08 11:17] LABS: Urine Albumin 3+ (Neg - Trace); Urine Bilirubin Negative (Negative); Urine Character Very Cloudy (Clear); Urine Color Yellow; Urine Glucose 3+ (Negative); Urine Ketone 2+ (Negative); Urine Leukocyte 2+ (Negative); Urine Nitrite Negative (Negative); Urine Occult Blood 3+ (Negative); Urine Urobilinogen Negative (Neg - 1+)
[2024-06-08 11:38] LABS: Urine Bacteria Few (Negative); Urine White Cell 30-40 /HPF (0-5)
[2024-06-08 11:39] LABS: Urine Red Blood Cell 26-30 /HPF (0-2)
--- NOTE | 2024-06-08 11:50 | W.PN.HOSP.TC ---
Today's Communication/Plan
-
Maintain Pugh
Follow-up urine culture
Follow-up urology recs on trial of void timing
Continue with one-to-one and restraints until Pugh removed
Assessment / Plan
Assessment / Plan
#Gross hematuria.
-2/2 to traumatic straight catheter by staff at his living facility
-Hemoglobin stable, remains afebrile; received IV ABX in ED though does not seem infected now
-Status post CBI, urine clear yesterday though some signs of bleeding today
-Remains on tamsulosin, which he takes at home
-Monitor urine cultures and for signs of UTI
-Urology consulted
Plan
-Will keep patient in restraints, Pugh in place through tomorrow
-Will speak with urology about removing Pugh on day 3
-Continue to monitor urine output
#Leukocytosis
-Suspect that this is reactive from his traumatic catheterization, WBC 11.2 today
-Does not have any fevers or other signs of infection
-Ordered urine culture to assess further
-Will trend temperature curve and CBC, consider empiric antibiotic
#Agitation
#Dementia
-Has been agitated by the presence of his Pugh catheter, trying to remove it
-He is currently on video one-to-one and then a soft bilateral upper limb restraint
-Suspect his agitation will improve when catheter is removed
-Will continue with restraints and one-to-one until Pugh removed
-continue risperdal, bupropion and depakote
#Liver mass
-Patient with likely liver Ca
-Family moving towards hospice but not there.
-No further w/u or treatment planned.
-pain control for nw
#CAD s/p CABG
-Home regimen includes statin, aspirin, Imdur, beta-jennifer, cilostazol, as needed NTG
-No known coronary interventions such as CABG or PCI
-No signs or symptoms of active coronary ischemia here
#Hypertension
-Home medications include amlodipine
-No known history of hypertensive CVD
-BPs currently adequate for hospital stay
#T2DM
-Home medications include short acting insulin, no basal insulin
-Blood sugars currently well-controlled on ISS with Accu-Cheks here
#Seizure disorder
-Home medications include divalproex 125 mg twice daily
-Also was on bupropion which can lower seizure threshold
-Should follow-up outpatient for medical optimization
DVT PPX: scds
Diet: Carbohydrate controlled
Code Status: DNR
Anticipated Discharge: 24 - 48 hours
Subjective/Interval History
-
Date of Service: June 08, 2024
Seen and examined at the bedside. No acute events overnight. AFVSS this morning. Remains on video one-to-one and in soft mittens
Labs do show new leukocytosis that is mild, no fevers overnight
History limited by advanced dementia
Objective Data
-
Labs:
Laboratory Results
06/08/24
06:42
WBC 11.7 H
Hgb 10.9 L
Hct 32.0 L
Plt Count 426 H
Sodium 138
Potassium 5.0
Chloride 103
Carbon Dioxide 19 L
BUN 42 H
Creatinine 2.0 H
Glucose 301 H
Calcium 10.1
Vital Signs:
Vital Signs
Temp Pulse Resp BP Pulse Ox
98.2 F 107 17 111/62 95
06/08/24 07:22 06/08/24 07:22 06/08/24 07:22 06/08/24 07:22 06/08/24 07:22
I&O
06/07/24 06/08/24 06/09/24
06:59 06:59 06:59
Intake Total 90 / 90 60 / 60
Output Total 1830 / 1830 600 / 600
Balance -1740 / -1740 -540 / -540
Review of Systems
-
Unable to obtain full review of systems at this time due to: Dementia
Physical Exam
-
General: No Apparent Distress and Comfortable; Negative Conversant
HEENT: Normocephalic, Atraumatic and Moist Mucous Membranes
Respiratory: Clear to Auscultation and Non Labored Respirations; Negative Wheezes, Rales or Rhonchi
Cardiac: S1/S2, Irregular Rhythm and Murmur; Negative Rub or Gallop
GI: Soft, Nondistended, Normal Bowel Sounds and Tender (Mild generalized tenderness, no peritoneal sign)
Genito-urinary: No Costovertebral Tender, Bloody Urine (Blood-tinged, mostly yellow) and Pugh
Musculoskeletal: No Clubbing, No Cyanosis and No Edema
Skin: Warm and Dry; Negative Rash
Neuro: Awake, Alert, Nonfocal/Grossly Intact and Central Nerve's Intact (Grossly)
Psych: Calm
Data Reviewed
-
Labs: Labs Reviewed by me
[2024-06-08 15:32] VITALS: BP 141/71
--- NOTE | 2024-06-08 15:34 | W.PN.URO.CBU ---
Today's Communication / Plan
-
remove carolina am 632 but please ebncourage fluids tp see if can void
Assessment / Plan
-
rettnionurine hematuria of carolina trauma as pt not tolerating carolina will remove am thuirsady
Diagnosis
-
Date of Service: June 08, 2024
-
Patient Diagnosis:
Post Op Day:
Patient Diagnosis:
hematiria after failed cath placement at [facility] car[place] placed hre now clear urine
Post Op Day:
Subjective
-
demetia but pulling at carolina
Objective
-
Vital Signs
Temp Pulse Resp BP Pulse Ox
97.5 F 97 18 141/71 98
06/08/24 15:32 06/08/24 15:32 06/08/24 15:32 06/08/24 15:32 06/08/24 15:32
Intake and Output
06/07/24 06/08/24 06/09/24
06:59 06:59 06:59
Intake Total 90 / 90 60 / 60
Output Total 1830 / 1830 600 / 600
Balance -1740 / -1740 -540 / -540
Intake:
Oral fluids 90 / 90 60 / 60
Output:
Urine, [place] 1610 / 1610 600 / 600
True Urine Output from CBI 200 / 200
True urine output from hand 20 / 20
irrigation
Laboratory Results
06/08/24 06:42
06/08/24 06:42
Review of Systems
-
: Difficulty Voiding
Physical Exam
-
General - well developed, well nourished, no acute distress
Chest - clear bilaterally
Abdomen - soft, non-tender, positive bowel sounds, no CVAT, no incisional pain or distention
Genitalia - normal
Rectal - normal
Skin - warm & dry with no rash
Neuro - AOx3, no motor deficits
Extremities - no clubbing, no cyanosis, no edema
Incision - clean, dry
Dressing - clean, dry, intact
Care Review
Data Reviewed
Discussed with: Hospitalist
[2024-06-08 16:46] LABS: Glucose - Point of Care 161 mg/dl (70-99)
[2024-06-08] MEDS: ZOFRAN 4 MG IV (17:05)
[2024-06-08] MEDS: NOVOLOG FLEXPEN-MODERATE RESISTANCE 1 UNITS SC (17:08)
--- NOTE | 2024-06-08 17:21 | W.PN.UPDATE ---
Update Note
Progress Note Update
Received text from nursing about patient complaining of recurrent abdominal pain. Had mild pain this morning, benign abdomen on exam. Nursing mentions small firm bowel movements. Will start 1/2NSS at 100ml/hr, order stat abdomen xray, and give dose
of senna.
[2024-06-08] MEDS: IMDUR (EXTENDED RELEASE) PO (17:30)
[2024-06-08] MEDS: 0.45%NACL 1000 IV (17:59)
[2024-06-08] MEDS: NORVASC 10 MG PO (18:01)
[2024-06-08] MEDS: TYLENOL 650 MG PO (18:03)
--- NOTE | 2024-06-08 18:10 | PTCARENOTE ---
Pt with increasing signs of pain/discomfort - wriggling in bed, moaning/calling out. When asked whats wrong responds, 'my gut'. Dry heaving at times. Unable to describe discomfort. Hypoactive bowel sounds and very little bowel output, also low urine
output throughout the day through carolina. Bladder scan checked - 0ml. TT Dr. Woods about discomfort, ordered abd x ray, fluids, bowel regimen. All interventions initiated. PRN zofran and tylenol adminsitered as well.
[2024-06-08 21:40] LABS: Glucose - Point of Care 261 mg/dl (70-99)
[2024-06-08] MEDS: LANTUS 0.05 UNITS SC (21:43)
[2024-06-08] MEDS: LIPITOR 20 MG PO (21:43)
[2024-06-08] MEDS: FLOMAX 0.4 MG PO (21:43)
[2024-06-08 23:15] VITALS: BP 107/56
[2024-06-09] MEDS: TYLENOL 650 MG PO (02:26)
[2024-06-09] MEDS: 0.45%NACL 1000 IV ×2 (04:55→14:22)
[2024-06-09 06:53] LABS: % Basophils 0.8 % (0-2); % Eosinophils 3.4 % (0-6); % Immature Granulocytes 0.9 % (0-0.5); % Lymphocytes 20.5 % (20.5-51.1); % Monocytes 8.3 % (1.7-9.3); % Neutrophils 66.1 % (42.2-75.2); Absolute Basophils 0.1 10^3/uL (0-0.2); Absolute Eosinophils 0.3 10^3/uL (0-0.7); Absolute Immature Granulocytes 0.1 10^3/uL (0-0.05); Absolute Lymphocytes 1.6 10^3/uL (1.2-3.4); Absolute Monocytes 0.7 10^3/uL (0.1-0.6); Absolute Neutrophils 5.3 10^3/uL (1.4-6.5); Hemoglobin 10.7 g/dL (13.0-18.0); Mean Corp Hgb Conc. 33.4 g/dL (33.0-37.0); Mean Corpuscular Hgb 27.7 pg (27.0-31.0); Mean Corpuscular Volume 82.9 fL (80.0-94.0); Mean Platelet Volume 9.7 fL (7.4-10.4); Nucleated Red Blood Cells % 0 % (-); Platelet Count 394 10^3/uL (130-400); Red Blood Cell Count 3.86 10^6/uL (4.70-6.10)
[2024-06-09 07:00] VITALS: BP 114/65
--- NOTE | 2024-06-09 07:44 | PTCARENOTE ---
Restraints removed (both b/l mitts and soft limb) at 0745 this morning. Medsitter remains in place at this time.
[2024-06-09 07:51] LABS: Blood Urea Nitrogen 37 mg/dl (9-20); Calcium 9.7 mg/dl (8.4-10.2); Carbon Dioxide 19 mmol/L (22-30); Chloride 102 mmol/L (98-107); Glucose 214 mg/dl (70-99); Potassium 4.9 mmol/L (3.5-5.1); Sodium 138 mmol/L (135-145); eGFR 37.35
[2024-06-09 08:07] LABS: Glucose - Point of Care 171 mg/dl (70-99)
[2024-06-09 08:41] LABS: Glucose - Point of Care 182 mg/dl (70-99)
[2024-06-09] MEDS: IMDUR (EXTENDED RELEASE) 60 MG PO ×2 (08:48→18:11)
[2024-06-09] MEDS: DEPAKOTE (12 HR RELEASE) 125 MG PO ×2 (08:48→21:37)
[2024-06-09] MEDS: ASPIR LOW (ENTERIC COATED) 81 MG PO (08:48)
[2024-06-09] MEDS: PROTONIX 40 MG PO (08:48)
[2024-06-09] MEDS: LOPRESSOR 25 MG PO ×2 (08:48→21:00)
[2024-06-09] MEDS: NOVOLOG FLEXPEN-MODERATE RESISTANCE 1 UNITS SC ×2 (08:48→18:11)
[2024-06-09] MEDS: SENOKOT-S 1 TABLET PO (08:48)
[2024-06-09] MEDS: PLETAL 100 MG PO ×2 (08:48→21:00)
[2024-06-09] MEDS: RISPERDAL 0.25 MG PO ×2 (08:49→20:44)
[2024-06-09 11:59] LABS: Glucose - Point of Care 203 mg/dl (70-99)
--- NOTE | 2024-06-09 12:40 | PTCARENOTE ---
Pt cooperative through breakfast, feeding self with prompting. Pleasant and participating in very limited confused conversation. No attempts to pull at IV or ostomy, no agressive behaviors. Medsitter removed from room at 1000. Bed alarm remains in
place, so far no attempts to get OOB.
[2024-06-09] MEDS: NOVOLOG FLEXPEN-MODERATE RESISTANCE 3 UNITS SC (12:45)
--- NOTE | 2024-06-09 12:56 | W.PN.HOSP.TC ---
Today's Communication/Plan
-
Trial of void
Avoid restraints and one-to-one if possible
Continue with bowel regimen
Assessment / Plan
Assessment / Plan
#Gross hematuria.
-2/2 to traumatic straight catheter by staff at his living facility
-Hemoglobin stable, remains afebrile; received IV ABX in ED though does not seem infected now
-Status post CBI, urine clear yesterday though some signs of bleeding today
-Remains on tamsulosin, which he takes at home
-Monitor urine cultures and for signs of UTI
-Urology is following, trial of void today
-Follow-up TOV results, if fails will need new Pugh and urology follow-up in 2
#Leukocytosis
-Suspect that this is reactive from his traumatic catheterization, WBC 11.2 on 06/08
-Has since resolved
#Agitation
#Dementia
-Has been agitated by the presence of his Pugh catheter, trying to remove it
-He is currently on video one-to-one and then a soft bilateral upper limb restraint
-Pugh catheter was removed today, restraints were stopped following that
-continue risperdal, bupropion and depakote
#Liver mass
-Patient with likely liver Ca
-Family moving towards hospice but not there.
-No further w/u or treatment planned.
-pain control for nw
#CAD s/p CABG
-Home regimen includes statin, aspirin, Imdur, beta-jennifer, cilostazol, as needed NTG
-No known coronary interventions such as CABG or PCI
-No signs or symptoms of active coronary ischemia here
#Hypertension
-Home medications include amlodipine
-No known history of hypertensive CVD
-BPs currently adequate for hospital stay
#T2DM
-Home medications include short acting insulin, no basal insulin
-Blood sugars currently well-controlled on ISS with Accu-Cheks here
#Seizure disorder
-Home medications include divalproex 125 mg twice daily
-Also was on bupropion which can lower seizure threshold
-Should follow-up outpatient for medical optimization
DVT PPX: scds
Diet: Carbohydrate controlled
Code Status: DNR
Anticipated Discharge: Within 24 hours
Subjective/Interval History
-
Date of Service: June 09, 2024
Seen and examined at the bedside today. No further acute events overnight. AFVSS this morning.
He does not complain of any further abdominal pain today. X-ray yesterday did result with signs of constipation, was started on bowel regimen. Trial of void was started here 6:30 AM today, will follow-up.
History otherwise limited by his advanced dementia
Objective Data
-
Labs:
Laboratory Results
06/09/24
06:44
WBC 8.0
Hgb 10.7 L
Hct 32.0 L
Plt Count 394
Sodium 138
Potassium 4.9
Chloride 102
Carbon Dioxide 19 L
BUN 37 H
Creatinine 1.8 H
Glucose 214 H
Calcium 9.7
Vital Signs:
Vital Signs
Temp Pulse Resp BP Pulse Ox
97.5 F 73 13 114/65 94
06/09/24 07:00 06/09/24 07:00 06/09/24 07:00 06/09/24 07:00 06/09/24 07:00
I&O
06/08/24 06/09/24 06/10/24
06:59 06:59 06:59
Intake Total 60 / 60 260 / 260
Output Total 600 / 600 650 / 650
Balance -540 / -540 -390 / -390
Review of Systems
-
Unable to obtain full review of systems at this time due to: Dementia
Physical Exam
-
General: No Apparent Distress, Comfortable and Other (Frail elderly male, sleeping)
Respiratory: Clear to Auscultation and Non Labored Respirations; Negative Wheezes, Rales or Rhonchi
Cardiac: S1/S2, Irregular Rhythm and Murmur; Negative Rub or Gallop
GI: Soft, Nontender, Nondistended, Normal Bowel Sounds and Ostomy
Musculoskeletal: No Clubbing, No Cyanosis and No Edema
Skin: Warm, Dry and Normal Turgor; Negative Rash
Neuro: Awake, Alert, Nonfocal/Grossly Intact and Central Nerve's Intact
Data Reviewed
-
Labs: Labs Reviewed by me
--- NOTE | 2024-06-09 13:37 | CM ---
Spoke with RN this am. Patient off of mitts and restraints. Med sitter gone. Will call facility in the am if patient is free of behaviors for 24 hrs to determine if he can transport back.
Plan: Case management will continue to follow and assist with discharge planning. Back to [facility] when stable.
[2024-06-09 15:00] VITALS: BP 99/55
--- NOTE | 2024-06-09 16:39 | W.PN.URO.CBU ---
Today's Communication / Plan
-
try and keep, carolina out but p[t with poor po intake and may not void for hoird reinsert carolina prn distention pain or pvr over 400cc but he only made 360cc urin in last 24 vhours so gih=ge him time
Assessment / Plan
-
rettnionurine hematuria of carolina trauma as pt not tolerating carolina will remove am jessicarsady
Diagnosis
-
Date of Service: June 09, 2024
-
Patient Diagnosis:
Post Op Day:
Patient Diagnosis:
Post Op Day:
Patient Diagnosis:
hematiria after failed cath placement at [facility] [place] placed hre now clear urine
Post Op Day:
Subjective
-
dementia
Objective
-
Vital Signs
Temp Pulse Resp BP Pulse Ox
98.2 F 79 17 99/55 97
06/09/24 15:00 06/09/24 15:00 06/09/24 15:00 06/09/24 15:00 06/09/24 15:00
Intake and Output
06/08/24 06/09/24 06/10/24
06:59 06:59 06:59
Intake Total 60 / 60 260 / 260
Output Total 600 / 600 650 / 650
Balance -540 / -540 -390 / -390
Intake:
Oral fluids 60 / 60 260 / 260
Output:
Urine, [place] 600 / 600 650 / 650
Other:
Number of approximated MODERATE 1
amounts of urine
Laboratory Results
06/09/24 06:44
06/09/24 06:44
Review of Systems
-
: Difficulty Voiding
Physical Exam
-
General - well developed, well nourished, no acute distress
Chest - clear bilaterally
Abdomen - soft, non-tender, positive bowel sounds, no CVAT, no incisional pain or distention
Genitalia - normal
Rectal - normal
Skin - warm & dry with no rash
Neuro - AOx3, no motor deficits
Extremities - no clubbing, no cyanosis, no edema
Incision - clean, dry
Dressing - clean, dry, intact
Care Review
Data Reviewed
Discussed with: Nursing
[2024-06-09 16:56] LABS: Glucose - Point of Care 155 mg/dl (70-99)
[2024-06-09] MEDS: NORVASC 10 MG PO (18:13)
[2024-06-09 21:28] LABS: Glucose - Point of Care 286 mg/dl (70-99)
[2024-06-09] MEDS: LANTUS 0.05 UNITS SC (21:36)
[2024-06-09] MEDS: FLOMAX 0.4 MG PO (21:37)
[2024-06-09] MEDS: LIPITOR 20 MG PO (21:38)
[2024-06-09 23:13] VITALS: BP 130/52
[2024-06-10] MEDS: 0.45%NACL 1000 IV ×2 (00:17→10:34)
[2024-06-10 07:30] VITALS: BP 133/61
[2024-06-10 07:30] LABS: Glucose - Point of Care 158 mg/dl (70-99)
--- NOTE | 2024-06-10 08:39 | W.PN.URO.CBU ---
Today's Communication / Plan
-
leave carolina out please
Assessment / Plan
-
pt voidig leave fleyn out
Diagnosis
-
Date of Service: June 10, 2024
-
Patient Diagnosis:
Post Op Day:
Patient Diagnosis:
Post Op Day:
Patient Diagnosis:
Post Op Day:
Patient Diagnosis:
hematiria after failed cath placement at [facility] car[place] placed hre now clear urine
Post Op Day: carolina out pt voiding
Subjective
-
now voiding
Objective
-
Vital Signs
Temp Pulse Resp BP Pulse Ox
97.9 F 56 17 133/61 96
06/10/24 07:30 06/10/24 07:30 06/10/24 07:30 06/10/24 07:30 06/10/24 07:30
Intake and Output
06/09/24 06/10/24 06/11/24
06:59 06:59 06:59
Intake Total 260 / 260 240 / 240
Output Total 650 / 650
Balance -390 / -390 240 / 240
Intake:
Oral fluids 260 / 260 240 / 240
Output:
Urine, [place] 650 / 650
Other:
Number of approximated MODERATE 1
amounts of urine
How many times incontinent 3
SATURATED amount urine
Laboratory Results
06/09/24 06:44
06/09/24 06:44
Review of Systems
-
: Incontinence
Physical Exam
-
General - well developed, well nourished, no acute distress
Chest - clear bilaterally
Abdomen - soft, non-tender, positive bowel sounds, no CVAT, no incisional pain or distention
Genitalia - normal
Rectal - normal
Skin - warm & dry with no rash
Neuro - AOx3, no motor deficits
Extremities - no clubbing, no cyanosis, no edema
Incision - clean, dry
Dressing - clean, dry, intact
Care Review
Data Reviewed
Discussed with: Nursing
[2024-06-10] MEDS: NOVOLOG FLEXPEN-MODERATE RESISTANCE 1 UNITS SC (08:52)
[2024-06-10] MEDS: SENOKOT-S 1 TABLET PO (09:07)
[2024-06-10] MEDS: PROTONIX 40 MG PO (09:07)
[2024-06-10] MEDS: DEPAKOTE (12 HR RELEASE) 125 MG PO (09:07)
[2024-06-10] MEDS: PLETAL 100 MG PO (09:07)
[2024-06-10] MEDS: WELLBUTRIN REGULAR RELEASE 100 MG PO (09:07)
[2024-06-10] MEDS: ASPIR LOW (ENTERIC COATED) 81 MG PO (09:08)
[2024-06-10] MEDS: LOPRESSOR PO (09:11)
[2024-06-10] MEDS: IMDUR (EXTENDED RELEASE) 60 MG PO (09:33)
[2024-06-10] MEDS: RISPERDAL 0.25 MG PO (09:37)
--- NOTE | 2024-06-10 10:10 | CM ---
Addendum entered by ROSALINDA Fishman 06/10/24 12:18:
Placed a call to patient's nephew who was agreeable to d/c. Reviewed IMM. Signed, now on chart.
Original Note:
Reviewed chart, patient has had no behaviors for 24 hrs. Placed a call to Eboni in admissions at [facility] who confirmed that patient can return today.
# For report [phone] fax [phone]
Will complete medical necessity and transfer sheet.
No auth needed for transfer.
Plan: Case management will continue to follow and assist with discharge planning. Back to [facility].
[2024-06-10] MEDS: TYLENOL 650 MG PO (10:33)
[2024-06-10 12:24] LABS: Glucose - Point of Care 246 mg/dl (70-99)
--- NOTE | 2024-06-10 12:40 | W.PN.HOSP.TC ---
Today's Communication/Plan
-
Discharge back to living facility
Assessment / Plan
Assessment / Plan
#Gross hematuria.
-2/2 to traumatic straight catheter by staff at his living facility
-Hemoglobin stable, remains afebrile; received IV ABX in ED though does not seem infected now
-Status post CBI, urine clear yesterday though some signs of bleeding today
-Remains on tamsulosin, which he takes at home
-Monitor urine cultures and for signs of UTI
-Passed trial of void, bleeding resolved
#Leukocytosis
-Suspect that this is reactive from his traumatic catheterization, WBC 11.2 on 06/08
-Has since resolved
#Agitation
#Dementia
-Has been agitated by the presence of his Pugh catheter, trying to remove it
-He is currently on video one-to-one and then a soft bilateral upper limb restraint
-Pugh catheter was removed today, restraints were stopped following that
-Stable on home regimen since Pugh catheter removed
#Liver mass
-Patient with likely liver Ca
-Family moving towards hospice but not there.
-No further w/u or treatment planned.
-pain control for nw
#CAD s/p CABG
-Home regimen includes statin, aspirin, Imdur, beta-jennifer, cilostazol, as needed NTG
-No known coronary interventions such as CABG or PCI
-No signs or symptoms of active coronary ischemia here
#Hypertension
-Home medications include amlodipine
-No known history of hypertensive CVD
-BPs currently adequate for hospital stay
#T2DM
-Home medications include short acting insulin, no basal insulin
-Blood sugars currently well-controlled on ISS with Accu-Cheks here
#Seizure disorder
-Home medications include divalproex 125 mg twice daily
-Also was on bupropion which can lower seizure threshold
-Should follow-up outpatient for medical optimization
DVT PPX: scds
Diet: Carbohydrate controlled
Code Status: DNR
Anticipated Discharge: Today
Subjective/Interval History
-
Date of Service: June 10, 2024
Seen and examined at bedside. No acute events overnight. AFVSS this morning.
Successfully passed trial of void yesterday, no issues with urinating, no significant bleeding noted
History otherwise limited by his advanced dementia
Objective Data
-
Vital Signs:
Vital Signs
Temp Pulse Resp BP Pulse Ox
97.9 F 56 17 133/61 96
06/10/24 07:30 06/10/24 07:30 06/10/24 07:30 06/10/24 07:30 06/10/24 07:30
I&O
06/09/24 06/10/24 06/11/24
06:59 06:59 06:59
Intake Total 260 / 260 240 / 240
Output Total 650 / 650
Balance -390 / -390 240 / 240
Review of Systems
-
Unable to obtain full review of systems at this time due to: Dementia
Physical Exam
-
General: No Apparent Distress, Comfortable and Other (Sleeping comfortably)
HEENT: Normocephalic, Atraumatic and Moist Mucous Membranes
Respiratory: Clear to Auscultation and Non Labored Respirations; Negative Wheezes, Rales or Rhonchi
Cardiac: Regular Rhythm and S1/S2; Negative Murmur, Rub or Gallop
GI: Soft, Nontender, Nondistended, Normal Bowel Sounds and Ostomy
Genito-urinary: No Costovertebral Tender
Musculoskeletal: No Clubbing, No Cyanosis and No Edema
Skin: Warm, Dry and Rash
Neuro: Awake, Alert, Nonfocal/Grossly Intact and Central Nerve's Intact
[2024-06-10] MEDS: NOVOLOG FLEXPEN-MODERATE RESISTANCE 3 UNITS SC (12:44)
--- NOTE | 2024-06-10 12:45 | W.DCSUMMARY ---
Discharge Summary
Discharge Data
Date of Admission: 06/08/24
Date of Discharge: 06/10/24
-
Pending Results: No
Hospital Course
83-year-old male with advanced dementia, COPD, CKD 3, IDDM, BPH, liver cancer (presumed, not being worked up), s/p Diallo's procedure that presented to the hospital after a traumatic straight cath at his living facility. Has been requiring
straight catheterization leading up to hospitalization, likely in the context of BPH. He presented with significant hematuria which improved following continuous bladder irrigation. Urology following, trial of void was performed on day 3 of
hospitalization which was successful.
He did have agitation while in the hospital secondary to his [place] catheter. Was on one-to-one with upper limb restraints to prevent him removing the catheter. Following removal by urology his agitation improved, no sedating medications required.
Discharge Plan
-
Patient Disposition: Residential/SNF
Discharge Diagnosis/Procedures: Hematuria (likely traumatic)
Condition: Good
Diet: No restrictions
Activity: As tolerated
Driving Restrictions: No driving
Bathing Restrictions: None
Blood Work: None
Others Tests: None
Other Services: VN, PT and OT
Activity Restrictions/Additional Instructions:
Schedule follow-up appointment with primary care doctor within 7 days of discharge from the hospital. This will be for routine hospital follow-up.
Please call to schedule a follow-up appointment with urologist in the office. Referral is provided below. Please call urologist within 5 days of discharge to schedule a voiding trial (removal of urinary catheter)
Referrals:
Jairo Jade DO [Family Provider] -
Ike Murry MD [Active] - [phone] [place] [facility]
Additional Discharge Medication Instructions: No medication changes
Prescriptions:
New
sennosides-docusate sodium 8.6-50 mg Tablet
1 tab PO DAILY 30 Days Qty: 30 0RF
Continued
nitroglycerin 0.4 MG tablet, sublingual
0.4 mg sublingual Q5MX3 PRN (Reason: chest pain)
cilostazol 100 MG tablet
100 mg PO BID
sennosides [senna] 1 TABLET tablet
2 tab PO HS
acetaminophen 325 MG tablet
650 mg PO Q4H PRN (Reason: mild pain/temp>100F)
simvastatin 40 MG tablet
40 mg PO HS
amlodipine 10 MG tablet
10 mg PO QPM
pantoprazole 40 MG tablet,delayed release (DR/EC)
40 mg PO DAILY
isosorbide mononitrate 60 MG tablet extended release 24 hr
60 mg PO BID@0900,1600
divalproex 125 MG tablet,delayed release (DR/EC)
125 mg PO BID
insulin lispro [Humalog KwikPen Insulin] 100 UNIT/ML insulin pen
0 - 14 units SC QID
Rx Instructions:
sliding scale: 70-149= 1 unit, 150-199= 2 units, 200-249= 4 units, 250-299= 7 units, 300-349= 10 units, 350-399= 12 units, 400-499= 14 units, over [address]
aspirin 81 MG tablet,delayed release (DR/EC)
81 mg PO DAILY
tamsulosin 0.4 MG capsule
0.4 mg PO HS
metoprolol tartrate 25 MG tablet
25 mg PO BID
Rx Instructions:
hold for SBP <100 or HR <60bpm
risperidone 0.25 mg Tablet
0.25 mg PO BID Qty: 60 0RF
duloxetine [Cymbalta] 20 mg Capsule,Delayed Release(Dr/Ec)
20 mg PO BID
insulin glargine [Lantus Solostar U-100 Insulin] 100 unit/mL (3 mL) Insulin Pen
5 unit SC HS
bupropion HCl 100 mg tablet
100 mg PO Q48H
Discharge Orders:
Discharge Patient (As Directed); Ordered 06/10/24
Ordered By: Jere Woods
Discharge Date and Time
Print Language: SETSWANA
[2024-06-10 16:30] VITALS: BP 141/63
[2024-06-10] MEDS: IMDUR (EXTENDED RELEASE) PO (16:40)
[2024-06-10 16:45] LABS: Glucose - Point of Care 141 mg/dl (70-99)
[2024-06-10] MEDS: NOVOLOG FLEXPEN-MODERATE RESISTANCE SC (16:45)
[2024-06-10] MEDS: NORVASC 10 MG PO (17:24)
== END 2024-06-10 19:14 | DRG 699 ==
LOC: 3 WEST ACU 09:40
PROVIDERS: ADMITTING PHYSICIAN Internal Medicine; ATTENDING PHYSICIAN Internal Medicine; CONSULT PHYSICIAN Specialist; EMERGENCY PHYSICIAN Student in an Organized Health Care Education/Training Program; FAMILY PHYSICIAN Internal Medicine
DX: T83.83XA Hemorrhage due to genitourinary prosthetic devices, implants and grafts, initial encounter (principal); C22.9 Malignant neoplasm of liver, not specified as primary or secondary; F03.918 Unspecified dementia, unspecified severity, with other behavioral disturbance; F03.93 Unspecified dementia, unspecified severity, with mood disturbance; F17.200 Nicotine dependence, unspecified, uncomplicated; R31.0 Gross hematuria; I12.9 Hypertensive chronic kidney disease with stage 1 through stage 4 chronic kidney disease, or unspecified chronic kidney disease; N18.30 Chronic kidney disease, stage 3 unspecified; E11.51 Type 2 diabetes mellitus with diabetic peripheral angiopathy without gangrene; G40.909 Epilepsy, unspecified, not intractable, without status epilepticus; Z66 Do not resuscitate; Y82.8 Other medical devices associated with adverse incidents; R31.9 Hematuria, unspecified
CPT/HCPCS: 51702; 74018; 80048; 80053; 81003; 81015; 82962; 85025; 85027; 86850; 86900; 86901; 87070; 87086; 87088; 87186; 96374; 96375; 96376; 99285